=== PATIENT | male | born 1955 | race Caucasian/White ===

== ENCOUNTER → 2017-01-18 | Outpatient (CLI) | payer OTHER ==
[~2017-01-18] MED LIST: ACET-1256 PO; ALPR-411 PO; ASPEC81 PO; BUSP15TA70 PO; CLB200 PO; CLON0.5T3 PO; FLM4 PO; LISI-461 PO; ONDA8TAB6 PO; ULT50X PO; ZNTT/150 PO
[2017-01-18 10:54] LABS: BASO % 0.7 %; BASO ABS # 0.05 K/uL (0-0.2); COMPLETE YES; EOS % 5.4 %; HEMATOCRIT 44.7 % (42-52); IG% 0.8 %; LYMPH % 20.6 %; LYMPH ABS # 1.52 K/uL (1.2-3.4); MEAN CELL VOLUME 86.6 fL (80-100); MEAN CORPUSCULAR HEMOGLOBIN 28.3 pg (25-34); MEAN CORPUSCULAR HGB CONC 32.7 g/dl (32-36); MEAN PLATELET VOLUME 11.3 fL (7.4-10.4); MONO % 7.8 %; NEUT % 64.7 %; PLATELET COUNT 201 K/uL (130-400); RED BLOOD COUNT 5.16 M/uL (4.7-6.1); WHITE BLOOD COUNT 7.39 K/uL (4.8-10.8)
[2017-01-18 11:12] LABS: ALT/SGPT 27 U/L (12-78); AST/SGOT 12 U/L (15-37); BLOOD UREA NITROGEN 24 mg/dl (7-18); BUN/CREATININE RATIO 22.1 (10-20); CALCIUM 8.6 mg/dl (8.5-10.1); CARBON DIOXIDE 27 mmol/L (21-32); CHLORIDE 109 mmol/L (98-107); GLUCOSE 99 mg/dl (70-99); POTASSIUM 4.7 mmol/L (3.5-5.1); SODIUM 142 mmol/L (136-145)
[2017-01-18 11:18] LABS: ALB/GLOB RATIO 1.3 (0.9-2); ALKALINE PHOSPHATASE 73 U/L (45-117); CHOLESTEROL 160 mg/dl (0-200); CHOLESTEROL/HDL RATIO 3.5; HDL CHOLESTEROL 46 mg/dl; LDL CHOLESTEROL CALCULATED 102 mg/dl; TRIGLYCERIDES 61 mg/dl (0-150); VERY LOW DENSITY LIPOPROT CALC 12 mg/dl
== END | disposition home or self-care (01) ==
LOC: C.LABBC 07:48
PROVIDERS: ATTEND Nurse Practitioner Family
DX: Z13.220 Encounter for screening for lipoid disorders (principal); Z12.5 Encounter for screening for malignant neoplasm of prostate

== ENCOUNTER → 2017-05-03 | Outpatient (CLI) | payer OTHER ==
[~2017-05-03] MED LIST changes: -ONDA8TAB6 PO
--- NOTE | 2017-05-03 13:25 | DIAGNOSTIC IMAGING REPORT ---
KUB CLINICAL HISTORY: Nephrolithiasis. FINDINGS: 2 AP supine abdominal radiographs are obtained. Correlation is made with pelvic radiograph dated 10/14/2016. There is a nonobstructed abdominal bowel gas pattern. There is no radiographic evidence of nephrolithiasis. Phleboliths are again seen in the pelvis and unchanged from previous. The bony structures appear intact. Fusion hardware is seen at L4-L5 and a right hip arthroplasty is in place. IMPRESSION: There is no radiographic evidence of nephrolithiasis. Electronically signed by: Cecilio Franklin M.D. 05/03/2017 1:23 PM Dictated Date/Time: 05/03/2017 1:22 PM
--- NOTE | 2017-05-03 14:51 | DIAGNOSTIC IMAGING REPORT ---
RENAL ULTRASOUND HISTORY: Nephrocalcinosis N20.0 [id number] COMPARISON: None. FINDINGS: Right kidney: Maximum dimension 11.6 cm. No evidence for hydronephrosis. Normal corticomedullary differentiation and cortical thickness. Left kidney: Maximum dimension 10.5 cm. No evidence for hydronephrosis. 1 cm nonobstructing left renal cortical calcification. Normal corticomedullary differentiation and cortical thickness. Bladder: No bladder wall thickening. The bilateral ureteral jets were identified. IMPRESSION: Nonobstructing left renal cortical calcification. Otherwise negative study Electronically signed by: Td Andersen M.D. 05/03/2017 2:50 PM Dictated Date/Time: 05/03/2017 2:49 PM
== END | disposition home or self-care (01) ==
LOC: C.ULTRBC 12:52
PROVIDERS: ATTEND Urology
DX: N20.0 Calculus of kidney (principal)

== ENCOUNTER → 2017-07-13 | Outpatient (CLI) | payer OTHER ==
[2017-07-13 13:52] LABS: BASO % 0.3 %; BASO ABS # 0.02 K/uL (0-0.2); COMPLETE YES; EOS % 6.3 %; HEMATOCRIT 41.4 % (42-52); IG% 0.3 %; LYMPH % 18.4 %; LYMPH ABS # 1.14 K/uL (1.2-3.4); MEAN CELL VOLUME 88.1 fL (80-100); MEAN CORPUSCULAR HEMOGLOBIN 29.8 pg (25-34); MEAN CORPUSCULAR HGB CONC 33.8 g/dl (32-36); MEAN PLATELET VOLUME 11.9 fL (7.4-10.4); MONO % 9.8 %; NEUT % 64.9 %; PLATELET COUNT 195 K/uL (130-400)
[2017-07-13 14:26] LABS: ALT/SGPT 24 U/L (12-78); BLOOD UREA NITROGEN 22 mg/dl (7-18); CALCIUM 9.8 mg/dl (8.5-10.1); CARBON DIOXIDE 26 mmol/L (21-32); CHLORIDE 105 mmol/L (98-107); GLUCOSE 87 mg/dl (70-99); MAGNESIUM 2.2 mg/dl (1.8-2.4); POTASSIUM 4.6 mmol/L (3.5-5.1); SODIUM 138 mmol/L (136-145)
[2017-07-13 14:44] LABS: ALB/GLOB RATIO 1.2 (0.9-2); ALKALINE PHOSPHATASE 62 U/L (45-117); AST/SGOT 19 U/L (15-37); FERRITIN 80.2 ng/ml (8.0-388.0); TRIGLYCERIDES 64 mg/dl (0-150)
== END | disposition home or self-care (01) ==
LOC: C.LABBC 10:32
PROVIDERS: ATTEND Nurse Practitioner Family
DX: E66.01 Morbid (severe) obesity due to excess calories (principal); R53.83 Other fatigue; M19.90 Unspecified osteoarthritis, unspecified site; M16.9 Osteoarthritis of hip, unspecified

== ENCOUNTER → 2017-10-14 | Outpatient (CLI) | payer OTHER ==
[2017-10-14 11:26] LABS: LYME DISEASE AB IGG NEG (NEG); LYME DISEASE AB IGM NEG (NEG)
== END | disposition home or self-care (01) ==
LOC: C.LABBC 07:31
PROVIDERS: ATTEND Nurse Practitioner Family
DX: R53.83 Other fatigue (principal); M25.50 Pain in unspecified joint

== ENCOUNTER → 2018-01-20 | Outpatient (CLI) | payer OTHER ==
[~2018-01-20] MED LIST changes: +RANI150T85 PO; -ZNTT/150 PO
--- NOTE | 2018-01-20 12:49 | DIAGNOSTIC IMAGING REPORT ---
KUB CLINICAL HISTORY: Nephrolithiasis. COMPARISON STUDY: KUB and renal ultrasound May 03, 2017. FINDINGS: L4-L5 discectomy and fusion is noted as well as a right hip arthroplasty. Pelvic calcifications are unchanged from prior KUB and likely reflect phleboliths. There is a probable 3 mm calculus within lower pole of the right kidney. No ureteral calculi are identified. IMPRESSION: 1. Probable 3 mm right renal calculus. 2. No ureteral calculi identified. Electronically signed by: Dean Olvera M.D. 01/20/2018 12:48 PM Dictated Date/Time: 01/20/2018 12:46 PM
[2018-01-20 14:22] LABS: BLOOD UREA NITROGEN 22 mg/dl (7-18); CREATININE 1.21 mg/dl (0.60-1.40)
== END | disposition home or self-care (01) ==
LOC: C.LABBC 11:55
PROVIDERS: ATTEND Urology
DX: N20.0 Calculus of kidney (principal)

== ENCOUNTER → 2018-02-11 | Outpatient (CLI) | payer OTHER ==
[~2018-02-11] MED LIST changes: -ASPEC81 PO; +ASPI-320 PO; +OPTIRAY 320 IV PRN
--- NOTE | 2018-02-11 13:47 | DIAGNOSTIC IMAGING REPORT ---
(CHEST FOR PE) ANGIO WITH CLINICAL HISTORY: 62 years-old Male presenting with ^ATYPICAL CHEST PAIN,EXERTIONAL DYSPNEA,SOB. TECHNIQUE: Multidetector CT angiography of the chest was performed after administration of intravenous contrast. 3-D volumetric and/or maximum intensity projection (MIP) images were subsequently reconstructed for review. IV contrast: 93 mL of Optiray 320. A dose lowering technique was used consistent with the principles of ALARA (as low as reasonably achievable). COMPARISON: None. CT DOSE (mGy.cm): The estimated cumulative dose is 554.20 mGycm. FINDINGS: Fisher Purse Seine topogram: Internal fixation hardware in the left humeral head and plate and screw fixation in the cervical spine. Pulmonary vasculature: The study is suboptimal for the assessment of the pulmonary vascular tree secondary to timing of the contrast bolus and respiratory motion artifact. Allowing for limited image quality, no central filling defect to suggest pulmonary embolus. Main pulmonary artery is not enlarged. No flattening of the interventricular septum. No intracardiac filling defect. No reflux of contrast into the hepatic veins. Remaining chest: On soft tissue windows, normal thyroid and thoracic inlet. Few subcentimeter mediastinal and hilar lymph nodes noted, likely reactive. Atherosclerosis of the aorta. Mild multichamber enlargement of the heart. No pericardial or pleural effusion. Upper abdomen normal. On lung windows, respiratory artifact somewhat limits evaluation of lung parenchyma. Minimal dependent groundglass opacities as well as bandlike opacities at the lung bases likely atelectasis. No significant interlobular septal thickening. Pulmonary arteries are comparable in size to adjacent bronchi suggesting no volume overload. Central airways patent. On bone windows, degenerative changes of the spine. Partially visualized anterior cervical discectomy and fusion changes. Partially visualized left humeral head hardware. IMPRESSION: 1. Allowing for suboptimal image quality, no evidence of pulmonary embolus. No acute intrathoracic pathology. 2. Mild cardiomegaly. No ghazal pulmonary edema or volume overload. 3. Bibasilar atelectasis. Electronically signed by: Justice Sierra M.D. 02/11/2018 1:46 PM Dictated Date/Time: 02/11/2018 1:40 PM
== END | disposition home or self-care (01) ==
LOC: C.CTS 12:37
PROVIDERS: ATTEND Internal Medicine Pulmonary Disease
DX: R06.09 Other forms of dyspnea (principal); R07.89 Other chest pain; R06.02 Shortness of breath; J98.11 Atelectasis

== ENCOUNTER → 2018-06-20 | Outpatient (CLI) | payer OTHER ==
[~2018-06-20] MED LIST changes: -CLON0.5T3 PO; +KLN/5 PO; -OPTIRAY 320 IV PRN
[2018-06-20 13:14] LABS: BASO % 0.5 %; BASO ABS # 0.04 K/uL (0-0.2); EOS % 4.7 %; EOS ABS # 0.35 K/uL (0-0.5); HEMATOCRIT 41.6 % (42-52); HEMOGLOBIN 14.1 g/dL (14.0-18.0); IG# 0.05 K/uL (0.00-0.02); MEAN CELL VOLUME 89.1 fL (80-100); MEAN CORPUSCULAR HEMOGLOBIN 30.2 pg (25-34); MEAN CORPUSCULAR HGB CONC 33.9 g/dl (32-36); MEAN PLATELET VOLUME 11.4 fL (7.4-10.4); MONO % 7.5 %; MONO ABS # 0.55 K/uL (0.11-0.59); NEUT % 67.6 %; NEUT ABS # 4.98 K/uL (1.4-6.5); PLATELET COUNT 206 K/uL (130-400); RED CELL DISTRIBUTION WIDTH CV 13.5 % (11.5-14.5); RED CELL DISTRIBUTION WIDTH SD 44.1 fL (36.4-46.3); WHITE BLOOD COUNT 7.37 K/uL (4.8-10.8)
[2018-06-20 13:22] LABS: PTT PATIENT 26.4 SECONDS (21.0-31.0)
[2018-06-20 13:53] LABS: ALKALINE PHOSPHATASE 57 U/L (45-117); ALT/SGPT 32 U/L (12-78); AST/SGOT 19 U/L (15-37); BLOOD UREA NITROGEN 25 mg/dl (7-18); CALCIUM 9.2 mg/dl (8.5-10.1); CARBON DIOXIDE 23 mmol/L (21-32); CREATININE 1.25 mg/dl (0.60-1.40); GLUCOSE 110 mg/dl (70-99); POTASSIUM 4.1 mmol/L (3.5-5.1); SODIUM 136 mmol/L (136-145); TOTAL PROTEIN 7.3 gm/dl (6.4-8.2)
== END | disposition home or self-care (01) ==
LOC: C.LABBC 11:04
PROVIDERS: ATTEND Internal Medicine Pulmonary Disease
DX: R06.02 Shortness of breath (principal); J44.9 Chronic obstructive pulmonary disease, unspecified; J45.909 Unspecified asthma, uncomplicated

== ENCOUNTER 2018-07-01 07:26 | Day surgery (SDC) | payer OTHER ==
[2018-07-01] VITALS (8 sets, daily range): BP systolic 114–145; BP diastolic 71–95; PULSE 58–68; TEMP 36.6–37.1; O2SAT 92–96; Ht 179.1 cm; Wt 130.5 kg
[~2018-07-01] VITALS: Ht 179.1 cm; Wt 130.5 kg
--- NOTE | 2018-07-01 07:52 | History & Physical Bridge Note ---
H&P Re-Evaluation Bridge Note: I have examined the patient, reviewed the History & Physical and in the interval since the performance of the History & Physical I have noted the following changes of clinical significance: No changes noted
--- NOTE | 2018-07-01 07:53 | Pre Sedation Assessment ---
Pre Sedation Assessment General Date of Sedation: Jul 01, 2018. Pre-Sedation Airway Assessment Smoking Status: Never Smoker Mallampati Classification: Class II ASA Classification: Class II Procedure Planning Contraindications for Sedation: None Current Medications Reviewed: Yes Notes The planned sedation has been discussed with the patient. Informed Consent was obtained. I have identified the patient, determined the appropriateness of sedation and have assessed the patient immediately prior to the procedure. All medicine(s) and interventions are by my order.
[2018-07-01] MEDS ORDERED: METO-217 PO (08:08)
[2018-07-01] MEDS ORDERED: FLUT1INH7 INH (08:08)
[2018-07-01] MEDS ORDERED: NAPR-22 PO (08:08)
[2018-07-01] MEDS ORDERED: MONT1TAB5 PO (08:08)
[2018-07-01] MEDS ORDERED: FENTANYL CITRATE INJ 50 MCG/1 ML 2 ML VIAL IV ONE (09:17)
[2018-07-01] MEDS ORDERED: LIDOCAINE VISCOUS 2% 100ML TOP ONE (09:35)
[2018-07-01] MEDS ORDERED: LIDOCAINE HCL 2% LOCAL 50ML VIAL INSTIL ONE (09:35)
[2018-07-01] MEDS ORDERED: OXYMETAZOLINE HCL 0.05% NA SPR 15 ML BTL ONE (09:35)
[2018-07-01] MEDS ORDERED: MIDAZOLAM HCL 5 MG/ML 1 ML VIAL IV ONE (09:35)
[2018-07-01] MEDS ORDERED: LIDOCAINE 4% INH SOLN 4 ML BTL TOP ONE (09:35)
--- NOTE | 2018-07-01 09:40 | [facility] Operative Report ---
Operative Report Operative Date Jul 01, 2018. Pre-Operative Diagnosis Chronic Asthmatic Bronchiectasis Post-Operative Diagnosis Chronic Asthmatic Bronchiectasis Procedure(s) Performed Bronchoscopy Surgeon Damian Furniture Arranger Surgeon(s) None Estimated Blood Loss 0 Findings Chronic Asthmatic Bronchitis Specimens Right and Left Lung Wash Complication(s) None Disposition I attest to the content of the Intraoperative Record and any orders documented therein. Any exceptions are noted below.
--- NOTE | 2018-07-01 09:40 | Post Sedation Assessment ---
Post Sedation Assessment General Date of Sedation Jul 01, 2018. Vital Signs: Vital Signs Past 12 Hours Date Time Temp Pulse Resp B/P (MAP) Pulse Ox O2 Delivery O2 Flow Rate FiO2 07/01/18 09:25 68 14 121/78 92 Mask 6 07/01/18 09:20 69 20 122/72 92 Mask 4 07/01/18 09:15 66 20 128/70 95 Mask 4 07/01/18 09:10 64 18 134/75 98 Mask 4 07/01/18 08:14 37.1 67 20 140/80 (100) 96 Room Air Post Procedure Recovery Score Activity: (2) Moves 4 extremities * Respiration: (2) Deep breath/cough Circulation: (2) +/-20% PreAnes Value Consciousness: (2) Fully Awake Oxygen Saturation: (1) O2 needed for >90% Post Anesthesia Score: 9 Discharge Sedation Level of Care: Fast Track Phase II Post Sedation Plan On clinical assessment, the patient appears to have tolerated the sedation without complications. Patient is recovering as anticipated. Patient will continue to be monitored by nursing and may be discharged when sedation discharge criteria are met per below protocol. Upon Completions of procedure and additional 15 minutes continue every 5 minute vital signs and the P.A.R. score; then discharge to a Phase I or Fast Track to Phase II per the following guidelines: * Discharge Patient to appropriate Phase II area if PAR is 8 or greater or return to pre- procedure baseline. The post - procedure orders will be as directed. * If PAR score is less than 8 or not return to pre-procedure baseline then patient will follow Phase I monitoring till PAR is reached for Phase II. The Phase I may be done in procedure room or may call to secure a Phase I area. * If naloxone or flumazenil are used for reversal, hold in Phase I for an additional 60 -120 minutes before discharge to Phase II. Please call the Sedation Physician to re-evaluate and complete post-note for discharge to Phase II area. Do NOT discharge from procedure sedation or Phase 1 until post- sedation evaluation note is complete by procedure /sedation MD Sedation Discharge Instructions to be given to the patient at discharge to home.
--- NOTE | 2018-07-01 09:43 | Discharge Instructions ---
Discharge Instructions Date of Service Jul 01, 2018. Admission Reason for Admission: Chronic Asthmatic Bronchitis, Sob Discharge Discharge Diagnosis / Problem: Chronic Astmatic Bronchitis Discharge Goals Goal(s): Diagnostic testing Activity Recommendations Activity Limitations: resume your previous activity Lifting Limitations: none Exercise/Sports Limitations: none May Resume Sexual Activity: when tolerated Shower/Bathe: no limitations Driving or Machine Use: resume 1 day after discharge none . Instructions / Follow-Up Instructions / Follow-Up ACTIVITY RECOMMENDATIONS: * Rest today, resume normal activity tomorrow. * Do not drive today. SPECIAL CARE INSTRUCTIONS: * Call your physician if you experience any chest or shoulder pain, fever, coughing, spitting up blood (more than 2 teaspoons) or excessive shortness of breath. * Remove dressing from IV site (where needle was placed into the vein) after 2 hours. Apply a warm, moist compress to site if irritation occurs. Call physician if site becomes red or painful to touch. FOLLOW UP VISIT: * Keep any scheduled doctor appointments. Current Hospital Diet Patient's current hospital diet: regular Discharge Diet Recommended Diet: Regular Diet Fluid Restriction: None Procedures Procedures Performed: Bronchoscopy Pending Studies Studies pending at discharge: no Medical Emergencies . Who to Call and When: Medical Emergencies: If at any time you feel your situation is an emergency, please call 911 immediately. . Non-Emergent Contact Non-Emergency issues call your: Rfid Analyst Call Non-Emergent contact if: temperature is above 101 . . "Provider Documentation" section prepared by Joseph Salgado. .
--- NOTE | 2018-07-01 19:56 | OPERATIVE REPORT ---
DATE OF OPERATION: 07/01/2018 TIME OF PROCEDURE: 09. PROCEDURE: Fiberoptic bronchoscope. INDICATIONS: Chronic congestion and cough refractory to outpatient therapy. ANESTHESIA PREOPERATIVELY: None. ANESTHESIA DURING PROCEDURE: IV Versed 6 mg IV, IV fentanyl 50 mcg. PROCEDURE IN DETAIL: The procedure was begun on 916 and completed on 927. Fiberoptic bronchoscope was inserted into the left naris without any difficulty and no active bleeding and the presence of significant disease was noted. The scope was passed to the level of the true vocal cords, which appeared to approximate normally with phonation without evidence of lesions or paralysis. The area was anesthetized with 2% Xylocaine spray and the scope was then introduced through the cords into the subglottic region and trachea and passed to the level of the federico, which was sharp and then the right mainstem bronchus was entered. No endobronchial lesion was seen. The right upper lobe, the apical posterior, anterior segments, bronchus intermedius, right middle lobe, medial lateral segments and all basilar segments right lower lobe were found to be free of endobronchial lesions. A small amount of mucoviscous secretion was lavaged from the right middle lobe and right lower lobe until clear. Mild global inflammatory mucosal change was seen throughout the right tracheobronchial tree. Left tracheobronchial tree showed no endobronchial lesions. Left upper lobe, the apical-posterior and anterior segments, lingular subdivision with the superior and inferior segments and all basilar segments of left lower lobe were found to be free of endobronchial lesions. Small amount of mucopurulent secretion was lavaged from left lower lobe until clear. The scope was then removed. No brushings or biopsies were deemed necessary. Fluoroscopy was not utilized. The patient was administered a nebulizer treatment with Xopenex 1.25 mg then transferred to same day surgery, hemodynamically stable, no signs of respiratory compromise and no evidence for epistaxis. We will await microbiological and cytologic examination of the bronchial washings. I attest to the content of the Intraoperative Record and any orders documented therein. Any exception s are noted below.
[2018-07-05 11:52] LABS: HERPES SIMPLEX VIRUS CULT NOT ISOLATED (NOT ISOLATED)
== END 2018-07-01 12:08 | disposition home or self-care (01) ==
LOC: C.ACU 07:26
PROVIDERS: ATTEND Internal Medicine Pulmonary Disease
DX: R05 Cough (principal); R09.89 Other specified symptoms and signs involving the circulatory and respiratory systems; J45.909 Unspecified asthma, uncomplicated; N40.0 Benign prostatic hyperplasia without lower urinary tract symptoms; E66.01 Morbid (severe) obesity due to excess calories; Z68.41 Body mass index [BMI] 40.0-44.9, adult; Z96.659 Presence of unspecified artificial knee joint; Z79.82 Long term (current) use of aspirin

== ENCOUNTER 2019-08-14 08:39 | Inpatient (IN) ==
--- NOTE | 2019-07-25 15:19 | PAT Medication Instructions ---
Medication Instructions Date of Service July 25, 2019 Home Medications Medication Instructions Recorded tramadol 50 mg tablet 50 mg PO BID PRN #80 tab 06/05/19 alprazolam 0.5 mg tablet 0.5 mg PO DAILY PRN #30 tab 06/28/19 fluticasone furoate 200 1 inh INHALATION QAM #60 ea 07/21/19 mcg-vilanterol 25 mcg/dose inhalation powder naproxen 500 mg tablet 500 mg PO DAILY #30 tab 07/24/19 aspirin [Aspir-81] 81 mg PO BID buspirone 15 mg PO BID lisinopril-hydrochlorothiazide 0.5 tab PO BID metoprolol succinate 50 mg PO BID tamsulosin 0.4 mg PO HS tiotropium bromide [Spiriva Respimat] 2 puff INHALATION QAM tramadol 50 mg tablet 50 mg PO BID PRN albuterol sulfate HFA 90 mcg/actuation aerosol inhaler 1 - 2 puffs INHALATION Q4H PRN apixaban 5 mg tablet 5 mg PO BID alprazolam 0.5 mg tablet 0.5 mg PO DAILY PRN fluticasone furoate 200 mcg-vilanterol 25 mcg/dose inhalation powder 1 inh INHALATION QAM naproxen 500 mg tablet 500 mg PO DAILY ASK your surgeon for instructions naproxen 500 mg tablet 500 mg PO DAILY ASK your prescriber and surgeon aspirin [Aspir-81] 81 mg PO BID apixaban 5 mg tablet 5 mg PO BID DO NOT take the morning of surgery lisinopril-hydrochlorothiazide 0.5 tab PO BID Take morning of surgery With a small sip of water, OTHERWISE NOTHING TO EAT OR DRINK AFTER MIDNIGHT: buspirone 15 mg PO BID metoprolol succinate 50 mg PO BID tiotropium bromide [Spiriva Respimat] 2 puff INHALATION QAM tramadol 50 mg tablet 50 mg PO BID PRN (okay to take up to 4 hours prior to surgery if needed) albuterol sulfate HFA 90 mcg/actuation aerosol inhaler 1 - 2 puffs INHALATION Q4H PRN (use if needed; please bring with you to hospital day of surgery if possible) alprazolam 0.5 mg tablet 0.5 mg PO DAILY PRN (if needed) fluticasone furoate 200 mcg-vilanterol 25 mcg/dose inhalation powder 1 inh INHALATION QAM Take evening before surgery buspirone 15 mg PO BID lisinopril-hydrochlorothiazide 0.5 tab PO BID metoprolol succinate 50 mg PO BID tamsulosin 0.4 mg PO HS tramadol 50 mg tablet 50 mg PO BID PRN (if needed) albuterol sulfate HFA 90 mcg/actuation aerosol inhaler 1 - 2 puffs INHALATION Q4H PRN (if needed) alprazolam 0.5 mg tablet 0.5 mg PO DAILY PRN (if needed) Other Notes If you have any questions please call us at [phone] or [phone] or [phone] or [phone]
--- NOTE | 2019-07-26 11:16 | Anesthesiology Consultation ---
Date of Service July 26, 2019 Assessment & Plan (1) Encounter for pre-operative examination: - Cardiology: 07/21/19: "Based on his previous functional status without limiting cardiopulmonary symptoms, negative stress echocardiogram approximately 1 year ago, and his normal LV systolic function -- Patient is a low to intermediate, but an acceptable cardiac surgical risk for his upcoming spine surgery..There is no need for further cardiac workup at this time." - Eliquis instructions: Okay to hold Eliquis x 3 days prior to surgery per cardiology. Chart Review Chart Review: Pending: Refer to Additional Notes / Consult section (pending preop testing (labs, EKG, CXR)) and Patient seen in Pre Admission Testing Teaching & Discussion Pre-Anesthesia Teaching/Discussion Notes: Instructed NPO after midnight before surgery,except medications with 15 cc of water. Medication instructions provided according to the PAT guidelines. History Surgery Operation Date: 08/14/19 07:45 Proposed Procedures p L2-S1 Decompression and Fusion, - Renan Grullon DO s L4-L5 Hardware Removal, Possible Coflex with Spinal Cord Monitoring - Renan Grullon DO Height/Weight Height: 5 ft 10.5 in Weight: 130.9 kg Allergies Allergy/AdvReac Type Severity Reaction Status Date / Time No Known Allergies Allergy Verified 07/21/19 10:41 Medications Home Medications Medication Instructions Recorded Confirmed Last Taken aspirin [Aspir-81] 81 mg PO BID 11/23/18 07/21/19 11/23/18 buspirone 15 mg PO BID 11/23/18 07/21/19 11/23/18 lisinopril-hydrochlorothiazide 0.5 tab PO BID 11/23/18 07/21/19 11/23/18 metoprolol succinate 50 mg PO BID 11/23/18 07/21/19 11/23/18 tamsulosin 0.4 mg PO HS 11/23/18 07/21/19 11/22/18 tiotropium bromide [Spiriva 2 puff INHALATION QAM 11/23/18 07/21/19 Unknown Respimat] tramadol 50 mg tablet 50 mg PO BID PRN #80 tab 06/05/19 07/21/19 Unknown albuterol sulfate HFA 90 1 - 2 puffs INHALATION Q4H PRN #1 06/14/19 07/21/19 Unknown mcg/actuation aerosol inhaler gm apixaban 5 mg tablet 5 mg PO BID #60 tab 06/14/19 07/21/19 Unknown alprazolam 0.5 mg tablet 0.5 mg PO DAILY PRN #30 tab 06/28/19 07/21/19 Unknown fluticasone furoate 200 1 inh INHALATION QAM #60 ea 07/21/19 Unknown mcg-vilanterol 25 mcg/dose inhalation powder naproxen 500 mg tablet 500 mg PO DAILY #30 tab 07/24/19 Unknown Past Medical History Medical History Morbid obesity Anxiety and depression Asthma stable (improved since initiating inhalers) Atrial fibrillation paroxysmal Degenerative disc disease Hypertension Kidney stones Osteoarthritis Spinal stenosis Exercise / Class Metabolic Activity III < 4 Walking/Shop/Light housework (long distance walking) Past Family History Family History Father Family history of melanoma Osteoarthritis Myocardial infarction Hypertension Kidney malignant neoplasm Melanoma Mother Family history of colon cancer Past Surgical History Surgical History History of cardiac catheterization 20 YRS AGO= NO STENTS History of colonoscopy History of colonoscopy with polypectomy History of fusion of cervical spine ACDF History of lumbar fusion History of shoulder surgery RX2 , LX1 History of total left knee replacement History of total right hip arthroplasty History of urologic surgery KIDNEY STONE REMOVAL Past Anesthesia History No Hx of Anesthesia Complications (except remote hx of PONV (no recent issues)) and No Family Hx of Anesthesia Complications History of PONV History of PONV (remote hx, no recent issues) and Hx of Motion Sickness Social History Smoking Status: Never smoker Do You Dip or Chew Tobacco: No Hx Alcohol Use: Yes Alcohol type: beer and hard liquor alcohol intake frequency: a few times a month Hx Substance Use: No substance use type: does not use Review of Systems Patient denies chest pain, shortness of breath, reflux, cough, wheezing, palpitations. Physical Exam Vital Signs VITALS BP 116/72 P 57 TEMP 98.0 SP02 93%RA RESP 18 PHYSICAL Mildly decreased cervical extension s/p ACDF Full TMJ range of motion. TMD 3 finger breaths Mallampati Score 2 Dentition: missing sides/molars Lungs: clear throughout to auscultation Cardiac: regular rate and rhythm, no murmurs noted Spine: normal Carotid arteries: negative bruit Extremities: no edema Testing Laboratory Results 06/21/19 WBC 6.14 H/H 14.1/42.7 PLATELETS 179 SODIUM 139 POTASSIUM 4.3 CHLORIDE 107 CO2 30 BUN 22 CREATININE 1.33 GLUCOSE 91 Stress Test Date: 07/08/18 Type: exercise Negative exercise stress ECHO/EKG for ischemia at 87% MPHR. No arrhythmia. No chest pain. Study terminated due to SOB. EF 60-65%. No RWMA. No significant valvular disease. Technically difficult study. 7 METS.
--- NOTE | 2019-07-26 12:21 | XRay Report ---
XR chest Pre-admission PA/Lat CLINICAL HISTORY: Preoperative chest COMPARISON STUDY: 10/07/2016 FINDINGS: There are low lung volumes with hypoventilatory changes at the lung bases. There is no loba r consolidation. There is no overt failure. There are no pleural effusions. The heart is normal in si ze. Postsurgical changes are present within the cervical spine[ IMPRESSION: Low lung volumes with hypoventilatory changes at the lung bases Electronically signed by: Joseluis Johnston M.D. 07/26/2019 12:20 PM
[2019-07-26 13:29] LABS: Appearance Urine Clear (Clear); Bilirubin Urine Negative (Negative); Blood Urine Negative (Negative); Color Urine Dark Yellow; Glucose Urine UA Negative (Negative); Ketones Urine Trace (Negative); Leukocyte Esterase Urine Negative (Negative); Nitrite Urine Negative (Negative); Protein Urine Negative (Negative); Specific Gravity Urine 1.025 (1.000-1.030); Urobilinogen Urine Negative (Negative)
[2019-07-26 13:31] LABS: INR 1.1 (0.9-1.1); Partial Thromboplastin Ratio 1.1; Partial Thromboplastin Time 29.4 Seconds (21.0-31.0)
[~2019-08-14 08:39] MED LIST changes: -ACET-1256 PO; +ACETAMINOPHEN 500 MG TAB PO SCH; -ALPR-411 PO; -ASPI-320 PO; -BUSP15TA70 PO; +CEFAZOLIN 3000MG 72.5 ML IV SCH; -CLB200 PO; +CeleBREX 200 MG CAP PO SCH; -FLM4 PO; +GABAPENTIN 300 MG CAP PO SCH; -KLN/5 PO; -LISI-461 PO; +LR 15ML/HR IV SCH; -RANI150T85 PO; -ULT50X PO
[2019-08-14] MEDS ORDERED: LIDOCAINE HCL 2% 2 ML VIAL/AMP(20MG/ML) INFIL ONE (09:21)
[2019-08-14] MEDS ORDERED: ePHEDrine sulfate 50 MG/ML AMP ONE (09:21)
[2019-08-14] MEDS ORDERED: PHENYLEPHRINE HCL 10 MG/ML VIAL ONE (09:21)
[2019-08-14] MEDS ORDERED: GLYCOPYRROLATE 0.2 MG/ML VIAL ONE (09:21)
[2019-08-14] MEDS ORDERED: fentaNYL citrate 100 MCG/2 ML VIAL ONE ×2 (09:21)
[2019-08-14] MEDS ORDERED: SUCCINYLCHOLINE CHLORIDE 20 MG/ML 10 ML VIAL ONE (09:21)
[2019-08-14] MEDS ORDERED: ONDANSETRON INJ 2 MG/ML 2 ML VIAL ONE (09:21)
[2019-08-14] MEDS ORDERED: DEXAMETHASONE SOD INJ 4 MG/ML VIAL ONE (09:21)
[2019-08-14] MEDS ORDERED: PROPOFOL IV EMULSION 10 MG/ML 20 ML VIAL IV ONE (09:21)
[2019-08-14] MEDS ORDERED: NEOSTIGMINE METHYLSULFATE 1 MG/ML 10ML VIAL ONE (09:21)
[2019-08-14] MEDS ORDERED: MIDAZOLAM HCL 1 MG/ML 2ML VIAL ONE (09:22)
[2019-08-14] MEDS ORDERED: ePHEDrine sulfate 50 MG/ML AMP IV PRN (09:50)
[2019-08-14] MEDS ORDERED: ONDANSETRON INJ 2 MG/ML 2 ML VIAL IV PRN ×2 (09:50→15:43)
[2019-08-14] MEDS ORDERED: LABETALOL HCL IV 5 MG/ML 20ML IV PRN (09:50)
[2019-08-14] MEDS ORDERED: HYDROmorphone INJ 1 MG/ML SYRINGE IV PRN (09:50)
[2019-08-14] MEDS ORDERED: ATROPINE SULFATE 0.1 MG/ML 10ML SYR IV PRN (09:50)
[2019-08-14] MEDS ORDERED: BACITRACIN INJ 50,000 UNIT VIAL ONE (10:14)
[2019-08-14] MEDS ORDERED: BUPIVACAINE/EPINEPHRINE 0.5% MPF 1:200,000 30 ML VIAL ONE (10:14)
--- NOTE | 2019-08-14 10:14 | History & Physical Bridge Note ---
Date of Service August 14, 2019 History & Physical Bridge Note I have examined the patient, reviewed the History & Physical and in the interval since the performance of the History & Physical I have noted the following changes of clinical significance: no changes noted
--- NOTE | 2019-08-14 10:16 | History & Physical Report ---
Date of Service August 14, 2019 Assessment & Plan (1) Spinal stenosis, lumbar region with neurogenic claudication: Lumbar decompression and fusion L2-S1 with hardware removal L4-L5 Present on Admission?: Yes History of Present Illness Chief Complaint: Back and bilateral leg pain Primary Care Provider: Ronak Marie, III, INVENTORY CONTROL SPECIALIST This is a 64-year-old male well-known to me that presents with chronic persistent back and bilateral leg pain after failing extensive course of nonoperative care is here for surgical intervention. Allergies Allergy/AdvReac Type Severity Reaction Status Date / Time No Known Allergies Allergy Verified 08/14/19 09:11 Home Medications Home Medications Medication Instructions Recorded Confirmed Type aspirin [Aspir-81] 81 mg PO BID 11/23/18 08/14/19 History buspirone 15 mg PO BID 11/23/18 08/14/19 History lisinopril-hydrochlorothiazide 0.5 tab PO BID 11/23/18 08/14/19 History tiotropium bromide [Spiriva 2 puff INHALATION QAM 11/23/18 08/14/19 History Respimat] tramadol 50 mg tablet 50 mg PO BID PRN #80 tab 06/05/19 08/14/19 Rx albuterol sulfate HFA 90 1 - 2 puffs INHALATION Q4H PRN #1 06/14/19 08/14/19 History mcg/actuation aerosol inhaler gm apixaban 5 mg tablet 5 mg PO BID #60 tab 06/14/19 08/14/19 History alprazolam 0.5 mg tablet 0.5 mg PO DAILY PRN #30 tab 06/28/19 08/14/19 Rx fluticasone furoate 200 1 inh INHALATION QAM #60 ea 07/21/19 08/14/19 Rx mcg-vilanterol 25 mcg/dose inhalation powder naproxen 500 mg tablet 500 mg PO DAILY #30 tab 07/24/19 08/14/19 Rx tamsulosin 0.4 mg capsule 0.4 mg PO HS #90 cap 08/08/19 08/14/19 Rx metoprolol succinate ER 50 mg 50 mg PO BID #60 tab 08/10/19 08/14/19 Rx tablet,extended release 24 hr colchicine 0.6 mg PO BID 08/14/19 08/14/19 History prednisone 10 mg PO DAILY 08/14/19 08/14/19 History Past Med/Surg History Family History Father Family history of melanoma Osteoarthritis Myocardial infarction Hypertension Kidney malignant neoplasm Melanoma Mother Family history of colon cancer Social History Preferred Language: Monegasque Communication Ability: Effective Visual Impairment: No Limitations Hearing Ability: Hard of Hearing Submarine Worker Required: No Beliefs That Will Affect Care: None marital status: Current Living Situation: Spouse and Other Current Living Situation Comment: [employer] SON (SPECIAL NEEDS) current occupational status: retired Other Information That Helps Us Care for You: No Feels Safe at Home: Yes Safety Concerns: Feels Safe At This Time Smoking Status: Never smoker Do You Dip or Chew Tobacco: No ; Second Hand Exposure: No ; Hx Alcohol Use: Yes Alcohol type: beer and hard liquor Hx Substance Use: No Dental Care, Regularly: No Physical Activity Frequency: Does not Exercise Physical Exam Physical Exam: Patient is alert and oriented neurologically intact. Results & Data Vital Signs (Past 12 Hours) Vital Signs Temp Pulse Resp BP Pulse Ox 08/14/19 09:13 36.6 C 66 18 137/78 94
[2019-08-14] MEDS ORDERED: ALBUMIN HUMAN 5% 12.5 GM/250 ML VIAL IV ONE (10:57)
[2019-08-14] MEDS ORDERED: FLOSEAL HEMOSTATIC MATRIX 10ML TOP ONE (11:46)
[2019-08-14] MEDS ORDERED: HYDROmorphone INJ 2 MG/ML SYR/VIAL ONE (12:42)
--- NOTE | 2019-08-14 13:54 | Operative Report ---
Post Operative Report Pre & Post Diagnosis Operation Date: 08/14/19 10:15 Pre-Op Diagnosis: Spinal stenosis, lumbar region, with neurogenic claudication Post-Op Diagnosis: Same Procedure Operation Date: 08/14/19 10:15 Actual Procedures #1 removal of posterior instrumentation L4-5. #2 exploration of fusion L4-5 per #3 lumbar decompression bilateral medial facetectomies and foraminotomies L2-3 L3-4 L5-S1. #4 posterior spinal fusion L2-3 L3-4 L4-5 L5-S1. #5 placement posterior segmental instrumentation from L2-S1. #6 interbody fusion L3-4 and L5-S1. #7 placement of titanium 11 x 26 mm cage at L3-4 and 12 x 26 mm cage at L5-S1. #8 placement of locally harvested morselized autograft in the posterior lateral gutters. #9 placement infuse collagen sponge, master graft in the posterior lateral gutters and ostial amp and interbody space. Surgeon Renan Grullon, DO Cloth Napping Supervisor Carmen Felix Estimated Blood Loss 500 Findings See Below The patient is 5 foot 10 inches tall weighing over 128 kg with a BMI in excess of 40. This combined with an EBL of over 500 cc created significant technical difficulty throughout the procedure adding at least 50% increase in operative time. Specimens None Indications Well-known to me that presents with steady decline in status. After failing extensive course of nonoperative care he like to undergo the above-mentioned procedure. Description of Procedure Patient was met with identified and informed consent obtained. Patient was then taken to the operative suite underwent intubation placed in a prone position the Edison table on top of the Ta frame. All bony prominences well-padded eyes inspected to ensure no external pressure placed upon the peer at this point the lumbar spine was prepped and draped in the normal sterile fashion. Sharp dissection with the assistance of Bovie cautery was performed down to and exposing the lamina and transverse processes of L2-L3 the instrumentation at L4- L5 and the sacral ala bilaterally. I then proceed remove the hardware at L4-5 bilaterally exploring the fusion mass noting it to be intact. I then performed a complete laminectomy of L5 L3 and L to from a caudal cephalad fashion completing bilateral medial facetectomies and foraminotomies to address severe spinal stenosis. Pedicle screws were then placed in L2 L3-L4-L5 and S1 levels bilaterally with assistance of fluoroscopy and the appropriately size timothy placed. By way of a transforaminal approach on the right complete discectomy of L5-S1 was performed endplates curetted to subcortical bleeding bone and a 12 x 26 mm titanium cage filled with osteo-amp bone graft tapped in position. Then proceeded to L3-[address] of a transforaminal approach on the right complete discectomy performed endplates curetted to subcortical bleeding bone and 11 x 26 mm titanium cage filled with osteo-amp bone graft tapped in po sition. The rods were then locked into final position bilaterally. The transverse processes of L2 L3-L4-L5 and sacral ala bur to subcortical bleeding bone. Infuse collagen sponge master graft and local autograft placed in the posterior lateral gutters. 15 round ARUN drain inserted. The incision was then closed with 1 Vicryl in the fascia 2-0 Vicryl subcutaneously and 4-0 Monocryl for final skin closure. Steri-Strip sterile dressings placed. Patient awakened taken to PACU stable disc. Please note Carmen Felix present throughout the entire procedure involved in patient positioning complex portions of the surgery and final skin closure. Lastly spinal cord monitoring was utilized throughout the procedure no changes noted. I attest to the content of the Intraoperative Record and any orders documented therein. Any exceptions are noted below.
--- NOTE | 2019-08-14 13:59 | Fluoroscopy Report ---
FL lumbar spine 2-3V CLINICAL HISTORY: L2-S1 DECOMPRESSION/FUSION, L4-L5 REMOVAL COMPARISON STUDY: Outside study dated 04/18/2018 FLUOROSCOPY TIME: 41 seconds. NUMBER OF FLUOROSCOPIC IMAGES: 3 FINDINGS: There are postsurgical changes of a prior L4-5 discectomy and interbody fusion. There is no w evidence for canal 3-4 and L5-S1 discectomy and interbody fusion. There is evidence for an L2-S1 sp inal fusion with posterior pedicle screw placement. IMPRESSION: L2-S1 spinal decompression and fusion. Electronically signed by: Joseluis Johnston M.D. 08/14/2019 1:58 PM
[2019-08-14] MEDS: fentaNYL citrate 100 MCG/2 ML VIAL IV PRN ×3 (14:32→14:50)
--- NOTE | 2019-08-14 15:18 | Anesthesiology Progress Note ---
Date of Service August 14, 2019 Anesthesia Post Procedure Vital Signs Vital Signs: Temp Pulse Pulse Resp BP Pulse Ox 08/14/19 15:10 67 17 128/67 93 08/14/19 15:00 67 15 112/64 96 08/14/19 14:50 62 13 116/65 91 08/14/19 14:40 71 21 120/65 98 08/14/19 14:30 69 18 118/70 97 08/14/19 14:20 73 16 134/65 99 08/14/19 14:10 36.7 C 75 15 132/60 99 08/14/19 09:13 36.6 C 66 18 137/78 94 Pain Intensity Lower Back: Pain Intensity: 5 Transfer of Care Handoff Completed per policy Notes Mental Status: alert / awake / arousable and participated in evaluation Patient Amnestic to Procedure: Yes Nausea / Vomiting: adequately controlled Pain: adequately controlled Airway Patency, RR, SpO2: stable & adequate BP & HR: stable & adequate Hydration State: stable & adequate Anesthetic Complications: no major complications apparent and Pt Satisfied with anesthetic care
[2019-08-14] MEDS ORDERED: TRAMADOL HCL 50 MG TABLET PO PRN (15:43)
[2019-08-14] MEDS ORDERED: PROMETHAZINE HCL 12.5 MG in SODIUM CHLORIDE 0.9% 50 ML IV PRN (15:43)
[2019-08-14] MEDS ORDERED: DO NOT ADMINISTER PNEUMOCOCCAL VACCINE PRN (15:43)
[2019-08-14] MEDS ORDERED: ONDANSETRON 4 MG TAB PO PRN (15:43)
[2019-08-14] MEDS ORDERED: ALPRAZolam 0.5 MG TABLET PO PRN (15:43)
[2019-08-14] MEDS ORDERED: SOD PHOSPHATE/SOD BIPHOSPHATE ENEMA 132 ML BTL PR PRN (15:43)
[2019-08-14] MEDS ORDERED: MAGNESIUM HYDROXIDE SUSP 30 ML UDC PO PRN (15:43)
[2019-08-14] MEDS ORDERED: FAMOTIDINE 20 MG TAB PO PRN (15:43)
[2019-08-14] MEDS ORDERED: HYDROmorphone INJ 0.5 MG/0.5 ML SYR IV PRN (15:43)
[2019-08-14] MEDS ORDERED: DO NOT ADMINISTER FLU VACCINE PRN (15:43)
[2019-08-14] MEDS ORDERED: bisacodyL 10 MG SUPP PR PRN (15:43)
[2019-08-14] MEDS ORDERED: LORazepam 0.5 MG TAB PO PRN (15:43)
[2019-08-14] MEDS ORDERED: NALOXONE HCL 0.4 MG/1 ML VIAL/CARP IV PRN (15:43)
[2019-08-14] MEDS ORDERED: ACETAMINOPHEN 1,000 MG/100 ML VIAL IV PRN (15:43)
[2019-08-14] MEDS ORDERED: LORazepam 0.5 MG/1 ML VIAL IV PRN (15:43)
[2019-08-14] MEDS ORDERED: ACETAMINOPHEN 500 MG TAB PO PRN (15:43)
[2019-08-14] MEDS ORDERED: METOCLOPRAMIDE HCL INJ 5 MG/ML 2 ML VIAL IV PRN (15:43)
[2019-08-14] MEDS ORDERED: ALUMINUM/MAGNESIUM SUSP 30 ML UDC PO PRN (15:43)
[2019-08-14] MEDS: LACTATED RINGER'S 1,000 ML IV SCH ×2 (17:09→23:12)
--- NOTE | 2019-08-14 17:22 | Hospitalist Consultation ---
Date of Consultation August 14, 2019 Assessment & Plan (1) Spinal stenosis, lumbar region with neurogenic claudication: - Post op day 0, Dr. Grullon - Pain management, bowel regimen, PT/OT per primary team - Resume eliquis for a fib once clear from a surgical standpoint - Follow am cbc for monitoring H&H - Hallucinations likely a result of anesthesia and pain management. At home the patient has been maintaining pain control on naproxen and tramadol. (2) Dry eyes: - Pt with c/o dry eyes, like sand in his eyes, during exam - Natural tears ordered prn (3) Hallucination: - likely drug induced - continue to monitor - encourage sound sleep if possible overnight. Maintain a calm and quiet environment. (4) Atrial fibrillation: - Currently holding eliquis, resume when stable from surgical standpoint - In NSR at bedside. (5) HTN (hypertension): - Continue lisinopril-hctz 0.5 mg BID, metoprolol succinate 50 mg PO QD - BP stable (6) Chronic asthmatic bronchitis: - Continue Spiriva, prednisone 10 mg daily (7) Depression: - Continue buspar 15 mg BID, may use ativan prn during admission - Significant social stressors as per HPI - would recommend counseling upon discharge so that he has another outlet for stress relief, and or other therapy so that he may be able to decompress. May also recommend meditation daily. Consider pastoral consult if the patient would like during this admission. (8) Anxiety: - buspar as above Code: Full code Dispo: From home, pending PT/OT consults and primary d/c Thank you for involving us in the care of Mr. Newton. Please do not hesitate to call with questions or concerns. Medicine service will follow along. Supervising Physician Co-Signing Physician Notes patient seen and examined, chart reviewed, case discussed with HAI Sellers and I agree with her assessment and plan as documented above. Briefly, patient is a pleasant 64yo C male s/p L2-S1 Decompression and Fusion, L4-L5 Hardware Removal performed by Dr. Grullon today. Surgery well tolerated, no immediate complications identified. Patient with brief episode of altered sensorium, ?hallucination in the immediate post-operative period. Still with numbness of his BL LE, no BM or flatus yet. He is starting to feel some mild pain. +PO well tolerated. On exam he is afebrile, HD stable, NAD Skin - drain in place with serosanguinous drainage HEENT - NC/AT, PERRL, MMM, neck supple Heart - +S1/S2, regular, no m/r/g Lungs - CTA Abd - diminished bowel sounds, soft, NT/ND Ext - neurovascularly intact, no tenderness/redness or swelling of right great toe Images reviewed Assessment/Plan: 64yo C male s/p decompression and fusion L2-S1 with hardware removal. Patient doing well. -Plan as above -Clarification - patient is presently on Prednisone 10mg po daily for pre- admission gout flare. He does not take Prednisone daily for a respiratory diagnosis Thank you for this consult. History of Present Illness Reason for Consultation: Medical management Requesting Physician: Dr. Grullon Attending Physician: Renan Grullon, DO History of Present Illness This is a 64 yo M with PMHx of paroxysmal afib on Eliquis, HTN, asthma, DDD, anxiety and depression, osteoarthritis and spinal stenosis who underwent elective spinal surgery by Dr. Grullon today, 08/14/19 which included removal of previous hardware and spinal fusion decompression of multiple lumbar and sacral vertebra. The patient states "I'm not doing very well" when i was in the room. 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 He is teary eyed while describing this painful situation. He notes that he has been hallucinating with seeing a lab like room and things and voices which he knows are not real since coming out of surgery today. Never before has he experienced anything like this with surgery or anesthesia, and has "had plenty of surgery" before. He reports a pain going across the posterior mid back, like at the bottom of his rib cage which is significantly uncomfortable. He feels like there is a bar in the bed which is pressing on the area. I and two other nurses helped to reposition him higher in my bed during the visit however that did not alleviate the pain. Another issue is that his eyes feel like there is sand in them. Overall he is hoping to just get a bit of rest tonight. Allergies Allergy/AdvReac Type Severity Reaction Status Date / Time No Known Allergies Allergy Verified 08/14/19 09:11 Home Medications Home Medications Medication Instructions Recorded Confirmed Type aspirin [Aspir-81] 81 mg PO BID 11/23/18 08/14/19 History buspirone 15 mg PO BID 11/23/18 08/14/19 History lisinopril-hydrochlorothiazide 0.5 tab PO BID 11/23/18 08/14/19 History tiotropium bromide [Spiriva 2 puff INHALATION QAM 11/23/18 08/14/19 History Respimat] tramadol 50 mg tablet 50 mg PO BID PRN #80 tab 06/05/19 08/14/19 Rx albuterol sulfate HFA 90 1 - 2 puffs INHALATION Q4H PRN #1 06/14/19 08/14/19 History mcg/actuation aerosol inhaler gm apixaban 5 mg tablet 5 mg PO BID #60 tab 06/14/19 08/14/19 History alprazolam 0.5 mg tablet 0.5 mg PO DAILY PRN #30 tab 06/28/19 08/14/19 Rx fluticasone furoate 200 1 inh INHALATION QAM #60 ea 07/21/19 08/14/19 Rx mcg-vilanterol 25 mcg/dose inhalation powder naproxen 500 mg tablet 500 mg PO DAILY #30 tab 07/24/19 08/14/19 Rx tamsulosin 0.4 mg capsule 0.4 mg PO HS #90 cap 08/08/19 08/14/19 Rx metoprolol succinate ER 50 mg 50 mg PO BID #60 tab 08/10/19 08/14/19 Rx tablet,extended release 24 hr colchicine 0.6 mg PO BID 08/14/19 08/14/19 History prednisone 10 mg PO DAILY 08/14/19 08/14/19 History Patient History Family History Father Family history of melanoma Osteoarthritis Myocardial infarction Hypertension Kidney malignant neoplasm Melanoma Mother Family history of colon cancer Social History Preferred Language: Pashto Communication Ability: Effective Visual Impairment: No Limitations Hearing Ability: Hard of Hearing Automatic 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 Tender Required: No Beliefs That Will Affect Care: None marital status: Current Living Situation: Spouse and Other Current Living Situation Comment: [employer] SON (SPECIAL NEEDS) current occupational status: retired Other Information That Helps Us Care for You: No Feels Safe at Home: Yes Safety Concerns: Feels Safe At This Time Smoking Status: Never smoker Do You Dip or Chew Tobacco: No ; Second Hand Exposure: No ; Hx Alcohol Use: Yes Alcohol type: beer and hard liquor Hx Substance Use: No Dental Care, Regularly: No Physical Activity Frequency: Does not Exercise Review of Systems Review of Systems: Constitutional: No fever, sweats or chills Eyes: No diplopia, no worsening or blurred vision ENT: normal hearing, no trouble swallowing Respiratory: No cough, sputum, dyspnea at rest or on exertion Cardiovascular: No chest pain, tightness or palpitations Abdomen: No pain, nausea, vomiting, diarrhea or constipation Musculoskeletal: No joint pain, calf pain, swelling Neurologic: No weakness, numbness/tingling, or balance problems Psychiatric: No anxiety or depression Skin: No rash or itch Physical Exam Physical Exam: General: awake, alert, no apparent distress, + morbid obesity Head: Normocephalic, atraumatic ENT: PERRL, EOMI, no pharyngeal exudate, mucous membranes moist Chest: Clear to auscultation, on room air, no adventitious breath sounds Cardiac: Regular rate and rhythm, no murmur, no JVD, normal peripheral pulses, good capillary refill Abdominal: NABS x 4 quadrants, soft, nontender to palpation, no rebound, guarding or tenderness Extremities: Normal inspection, no peripheral edema or erythema, calfs nontender to palpation Back: ARUN drains in place are full. : romeo catheter in place draining clear yellow urine. Psych: Depressed and anxious, teary eyed at times. Neuro: AAO x 3, strength intact bilaterally and related 5/5, no motor deficits, speech is clear, no peripheral sensory deficits Results & Data Vital Signs (Past 12 Hours) Vital Signs Temp Pulse Pulse Pulse Resp BP BP 08/14/19 16:18 69 18 115/74 08/14/19 15:45 36.4 C L 70 16 109/69 08/14/19 15:30 67 18 104/65 08/14/19 15:20 36.1 C L 67 13 112/60 08/14/19 15:10 67 17 128/67 08/14/19 15:00 67 15 112/64 08/14/19 14:50 62 13 116/65 08/14/19 14:40 71 21 120/65 08/14/19 14:30 69 18 118/70 08/14/19 14:20 73 16 134/65 08/14/19 14:10 36.7 C 75 15 132/60 08/14/19 09:13 36.6 C 66 18 137/78 Pulse Ox 08/14/19 16:18 96 08/14/19 15:45 96 08/14/19 15:30 93 08/14/19 15:20 94 08/14/19 15:10 93 08/14/19 15:00 96 08/14/19 14:50 91 08/14/19 14:40 98 08/14/19 14:30 97 08/14/19 14:20 99 08/14/19 14:10 99 08/14/19 09:13 94 PG Care Time/CCT Total # of Minutes Spent Total Time Spent with Patient: Total time spent is greater than 50% in coordination of care (as documented) at patient's floor/unit and/or counseling patient: (1) Atrial fibrillation Atrial fibrillation type: unspecified Qualified Code(s): I48.91 - Unspecified atrial fibrillation (2) Depression Active/Remission status: currently active Depression Type: major depressive disorder Major depression episode severity: moderate Major depression recurrence: recurrent Qualified Code(s): F33.1 - Major depressive disorder, recurrent, moderate
[2019-08-14] MEDS ORDERED: ARTIFICIAL TEARS OP PRN (18:06)
[2019-08-14] MEDS: CEFAZOLIN 2000MG 2,000 MG/15 ML SYR IV SCH (18:31)
[2019-08-14] MEDS: KETOROLAC TROMETHAMINE 15 MG/ML VIAL IV SCH ×2 (18:31→23:12)
[2019-08-14] MEDS: BusPIRone 15 MG TAB PO SCH (21:12)
[2019-08-14] MEDS: ASPIRIN 81 MG ECTAB PO SCH (21:13)
[2019-08-14] MEDS: LISINOPRIL/HCTZ 10/12.5MG TAB PO SCH (21:13)
[2019-08-14] MEDS: TAMSULOSIN HCL 0.4 MG CAP PO SCH (21:13)
[2019-08-14] MEDS: DOCUSATE SODIUM/SENNA 50/8.6MG TAB PO SCH (21:14)
[2019-08-14] MEDS: METOPROLOL SUCC 50MG EXT REL TAB PO SCH (21:14)
[2019-08-14] MEDS: OXYCODONE HCL IR 5 MG TAB (IMMEDIATE RELEASE) PO PRN (23:12)
[2019-08-15] MEDS: CEFAZOLIN 2000MG 2,000 MG/15 ML SYR IV SCH (02:46)
[2019-08-15] MEDS: KETOROLAC TROMETHAMINE 15 MG/ML VIAL IV SCH ×2 (05:28→12:06)
[2019-08-15] MEDS: LACTATED RINGER'S 1,000 ML IV SCH (05:28)
[2019-08-15] MEDS: POLYETHYLENE (MIRALAX) 17 GM PACK PO SCH ×4 (05:28→23:52)
[2019-08-15 06:33] LABS: Hematocrit (blood only) 32.8 % (42-52); Hemoglobin 11.1 g/dL (14.0-18.0); Immature Granulocytes # (auto) 0.07 K/uL (0.00-0.02); Immature Granulocytes % (auto) 0.5 %; Lymphocytes # (auto) 0.65 K/uL (1.2-3.4); Lymphocytes % (auto) 4.4 %; Mean Corpuscular Hemoglobin 29.3 pg (25-34); Mean Corpuscular Hgb Conc 33.8 g/dL (32-36); Mean Corpuscular Volume 86.5 fL (80-100); Mean Platelet Volume 10.6 fL (7.4-10.4); Monocytes # (auto) 1.14 K/uL (0.11-0.59); Monocytes % (auto) 7.8 %; Neutrophils # (auto) 12.75 K/uL (1.4-6.5); Neutrophils % (auto) 87.3 %; Platelet Count 179 K/uL (130-400); RDW Coefficient of Variation 13.9 % (11.5-14.5); RDW Standard Deviation 44.2 fL (36.4-46.3); Red Blood Count 3.79 M/uL (4.7-6.1); White Blood Count 14.61 K/uL (4.8-10.8)
[2019-08-15 07:08] LABS: BUN Creatinine Ratio 20.1 (10-20); Calcium 8.5 mg/dl (8.5-10.1); Est GFR (African American) 63.4; Est GFR (Non-African American) 54.7; Potassium 4.5 mmol/L (3.5-5.1)
--- NOTE | 2019-08-15 08:22 | Anesthesiology Progress Note ---
Date of Service August 15, 2019 Anesthesia Post Procedure Vital Signs Vital Signs: Temp Pulse Pulse Pulse Resp BP BP 08/15/19 03:15 36.8 C 88 18 116/57 L 08/14/19 23:35 36.7 C 82 18 110/76 08/14/19 21:18 08/14/19 21:08 80 18 134/84 08/14/19 18:44 36.4 C L 68 17 135/86 08/14/19 17:45 36.3 C L 74 17 125/80 08/14/19 16:18 69 18 115/74 08/14/19 15:45 36.4 C L 70 16 109/69 08/14/19 15:30 67 18 104/65 08/14/19 15:20 36.1 C L 67 13 112/60 08/14/19 15:10 67 17 128/67 08/14/19 15:00 67 15 112/64 08/14/19 14:50 62 13 116/65 08/14/19 14:40 71 21 120/65 08/14/19 14:30 69 18 118/70 08/14/19 14:20 73 16 134/65 08/14/19 14:10 36.7 C 75 15 132/60 08/14/19 09:13 36.6 C 66 18 137/78 Pulse Ox 08/15/19 03:15 95 08/14/19 23:35 93 08/14/19 21:18 97 08/14/19 21:08 08/14/19 18:44 95 08/14/19 17:45 94 08/14/19 16:18 96 08/14/19 15:45 96 08/14/19 15:30 93 08/14/19 15:20 94 08/14/19 15:10 93 08/14/19 15:00 96 08/14/19 14:50 91 08/14/19 14:40 98 08/14/19 14:30 97 08/14/19 14:20 99 08/14/19 14:10 99 08/14/19 09:13 94 Pain Intensity Lower Back: Pain Intensity: 2 Notes Mental Status: alert / awake / arousable and participated in evaluation Patient Amnestic to Procedure: Yes Nausea / Vomiting: adequately controlled Pain: adequately controlled Airway Patency, RR, SpO2: stable & adequate BP & HR: stable & adequate Hydration State: stable & adequate Anesthetic Complications: no major complications apparent and Pt Satisfied with anesthetic care
[2019-08-15] MEDS: BusPIRone 15 MG TAB PO SCH ×2 (08:37→21:08)
[2019-08-15] MEDS: ASPIRIN 81 MG ECTAB PO SCH ×2 (08:38→21:08)
[2019-08-15] MEDS: predniSONE 10 MG TABLET PO SCH (08:38)
[2019-08-15] MEDS: LISINOPRIL/HCTZ 10/12.5MG TAB PO SCH ×2 (08:38→21:06)
[2019-08-15] MEDS: METOPROLOL SUCC 50MG EXT REL TAB PO SCH ×2 (08:39→21:08)
[2019-08-15] MEDS: TIOTROPIUM BROMIDE 5 PUFF/90 MCG INH INH SCH (08:44)
[2019-08-15] MEDS: TRAMADOL HCL 50 MG TABLET PO PRN ×2 (08:44→21:06)
--- NOTE | 2019-08-15 10:38 | Orthopedic Progress Note ---
Date of Service August 15, 2019 Assessment & Plan (1) Spinal stenosis, lumbar region with neurogenic claudication: This time will initiate physical therapy monitor his ARUN output hopefully discharge home by the end of the week. Present on Admission?: Yes Subjective Patient's back pain is controlled. He notes marked improvement of his leg symptoms. Physical Exam Physical Exam: On exam he is in the chair at the bedside. Is good strength testing. Appears comfortable. Results & Data Vital Signs (Past 12 Hours) Vital Signs Temp Pulse Pulse Resp BP Pulse Ox 08/15/19 08:35 71 111/73 08/15/19 03:15 36.8 C 88 18 116/57 L 95 08/14/19 23:35 36.7 C 82 18 110/76 93
--- NOTE | 2019-08-15 12:46 | Hospitalist Progress Note ---
Date of Service August 15, 2019 Assessment & Plan (1) Spinal stenosis, lumbar region with neurogenic claudication: - POD#1, doing well. - Pain management per primary team. - PT/OT for discharge planning. - DVT ppx: ASA 81 mg BID. (2) Anemia: - Acute blood loss anemia; expected following operative period. - Continue to trend CBC daily. (3) Dry eyes: - Artificial tears prn. (4) Hallucination: - Likely related to operative period/anesthesia. - Re-orient frequently. (5) Atrial fibrillation: - Continue Metoprolol 50 mg BID as prescribed. - Currently holding home Eliquis, resume per ortho. (6) HTN (hypertension): - Continue Metoprolol and Lisinopril-HCTZ as prescribed. (7) Chronic asthmatic bronchitis: - Continue Spiriva as prescribed. (8) Depression: - Buspar 15 mg BID with Ativan prn. (9) Anxiety: - Buspar BID; Ativan prn. (10) Gout: - Currently on Prednisone taper - 10 mg PO daily. - Taper as tolerated. Dispo: Will continue to follow, please call with any questions. Subjective Pt. is doing well overall - he c/o irritation at site of dressing but otherwise denies uncontrolled back pain, chest pain, SOB. Is passing gas, no BM yet. Corey was removed, is voiding without difficulty. Review of Systems Review of Systems: All systems reviewed & are unremarkable except as noted in HPI & below Constitutional: no fever, no chills, no fatigue and no weakness Respiratory: no cough, no dyspnea, no dyspnea on exertion and no wheezing Cardiovascular: no chest pain, no palpitations and no edema Gastrointestinal: + constipation; no abdominal pain, no nausea and no vomiting Genitourinary: no difficulty urinating Musculoskeletal: + back pain; no joint pain Integumentary: no non-healing lesions Physical Exam Physical Exam: General: Resting comfortably HEENT: NC/AT; PERRLA with EOMI; [place] conjunctiva, MMM. No erythema of posterior pharynx Neck: Supple and nontender Cardiac: RRR Lungs: CTA bilaterally Abdomen: Bowel normoactive X 4; Nontender to palpation Extremities: Warm. No edema present Neuro: No focal weakness Skin: No rash Results & Data Vital Signs (Past 12 Hours) Vital Signs Temp Pulse Pulse Resp BP Pulse Ox 08/15/19 08:35 71 111/73 08/15/19 03:15 36.8 C 88 18 116/57 L 95 Laboratory Results 08/15/19 08/15/19 Range/Units 06:07 06:07 WBC 14.61 H (4.8-10.8) K/uL RBC 3.79 L (4.7-6.1) M/uL Hgb 11.1 L (14.0-18.0) g/dL Hct 32.8 L (42-52) % MCV 86.5 (80-100) fL MCH 29.3 (25-34) pg MCHC 33.8 (32-36) g/dL RDW Std Deviation 44.2 (36.4-46.3) fL RDW Coeff of Leslie 13.9 (11.5-14.5) % Plt Count 179 (130-400) K/uL MPV 10.6 H (7.4-10.4) fL Immature Gran % (Auto) 0.5 % Neut % (Auto) 87.3 % Lymph % (Auto) 4.4 % [place] % (Auto) 7.8 % Eos % (Auto) 0.0 % Baso % (Auto) 0.0 % Immature Gran # (Auto) 0.07 H (0.00-0.02) K/uL Neut # (Auto) 12.75 H (1.4-6.5) K/uL Lymph # (Auto) 0.65 L (1.2-3.4) K/uL [place] # (Auto) 1.14 H (0.11-0.59) K/uL Eos # (Auto) 0.00 (0-0.5) K/uL Baso # (Auto) 0.00 (0-0.2) K/uL Sodium 137 (136-145) mmol/L Potassium 4.5 (3.5-5.1) mmol/L Chloride 105 (98-107) mmol/L Carbon Dioxide 23 (21-32) mmol/L Anion Gap 9.0 (3-11) BUN 27 H (7-18) mg/dl Creatinine 1.35 (0.6-1.4) mg/dl Est Cr Clr Drug Dosing 74.0 ml/min Est GFR ( Amer) 63.4 Est GFR (Non-Af Amer) 54.7 BUN/Creatinine Ratio 20.1 H (10-20) Glucose 119 H (70-99) mg/dl Calcium 8.5 (8.5-10.1) mg/dl PG Care Time/CCT Total # of Minutes Spent Total Time Spent with Patient: Total time spent is greater than 50% in coordination of care (as documented) at patient's floor/unit and/or counseling patient: (1) Atrial fibrillation Atrial fibrillation type: unspecified Qualified Code(s): I48.91 - Unspecified atrial fibrillation (2) Depression Active/Remission status: currently active Depression Type: major depressive disorder Major depression episode severity: moderate Major depression recurrence: recurrent Qualified Code(s): F33.1 - Major depressive disorder, recurrent, moderate
[2019-08-15] MEDS: DOCUSATE SODIUM/SENNA 50/8.6MG TAB PO SCH (21:06)
[2019-08-15] MEDS: TAMSULOSIN HCL 0.4 MG CAP PO SCH (21:07)
[2019-08-16] MEDS: POLYETHYLENE (MIRALAX) 17 GM PACK PO SCH ×3 (05:28→17:28)
[2019-08-16] MEDS: TRAMADOL HCL 50 MG TABLET PO PRN ×3 (05:31→20:37)
[2019-08-16 05:53] LABS: Hematocrit (blood only) 32.9 % (42-52); Mean Corpuscular Hemoglobin 29.5 pg (25-34); Mean Corpuscular Hgb Conc 33.4 g/dL (32-36); Mean Corpuscular Volume 88.2 fL (80-100); Mean Platelet Volume 11.2 fL (7.4-10.4); Platelet Count 180 K/uL (130-400); RDW Coefficient of Variation 14.4 % (11.5-14.5); RDW Standard Deviation 46.7 fL (36.4-46.3); Red Blood Count 3.73 M/uL (4.7-6.1); White Blood Count 10.32 K/uL (4.8-10.8)
[2019-08-16 06:26] LABS: BUN Creatinine Ratio 22.5 (10-20); Calcium 9.1 mg/dl (8.5-10.1); Creatinine Clr Calc Pharmacy 78.1 ml/min; Est GFR (African American) 67.6; Est GFR (Non-African American) 58.3; Potassium 4.4 mmol/L (3.5-5.1)
[2019-08-16] MEDS: FLUTICASONE INH SCH (07:58)
[2019-08-16] MEDS: TIOTROPIUM BROMIDE 5 PUFF/90 MCG INH INH SCH (07:58)
[2019-08-16] MEDS: VILANTEROL INH SCH (07:58)
[2019-08-16] MEDS: predniSONE 10 MG TABLET PO SCH (07:59)
[2019-08-16] MEDS: LISINOPRIL/HCTZ 10/12.5MG TAB PO SCH ×2 (07:59→20:36)
[2019-08-16] MEDS: ASPIRIN 81 MG ECTAB PO SCH ×2 (08:00→20:37)
[2019-08-16] MEDS: METOPROLOL SUCC 50MG EXT REL TAB PO SCH ×2 (08:00→20:37)
[2019-08-16] MEDS: BusPIRone 15 MG TAB PO SCH ×2 (08:00→20:38)
--- NOTE | 2019-08-16 09:17 | Orthopedic Progress Note ---
Date of Service August 16, 2019 Assessment & Plan (1) Spinal stenosis, lumbar region with neurogenic claudication: This time we will continue physical therapy monitor his ARUN output advance his bowel regiment hopefully discharge home tomorrow. Present on Admission?: Yes Subjective Patient's back pain is controlled leg symptoms still markedly improved. Physical Exam Physical Exam: Patient is sitting up at the bedside. Is good strength testing. Appears comfortable. Results & Data Vital Signs (Past 12 Hours) Vital Signs Temp Pulse Pulse Resp BP Pulse Ox 08/16/19 07:56 75 108/68 08/16/19 06:18 36.8 C 66 16 114/75 91 08/15/19 23:49 36.9 C 67 16 129/77 92
--- NOTE | 2019-08-16 11:33 | Hospitalist Progress Note ---
Date of Service August 16, 2019 Assessment & Plan (1) Spinal stenosis, lumbar region with neurogenic claudication: - POD#2, doing well. - Pain management per primary team. - PT/OT for discharge planning. - DVT ppx: ASA 81 mg BID. (2) Anemia: - Acute blood loss anemia; is trending down as expected. - Continue to trend CBC daily - does not require transfusion support. (3) Dry eyes: - Artificial tears prn. (4) Hallucination: - Likely related to operative period/anesthesia; now resolved. (5) Atrial fibrillation: - Continue Metoprolol 50 mg BID as prescribed. - Currently holding home Eliquis, resume per ortho. (6) HTN (hypertension): - Continue Metoprolol and Lisinopril-HCTZ as prescribed. (7) Chronic asthmatic bronchitis: - Continue Spiriva as prescribed. (8) Depression: - Buspar 15 mg BID. (9) Anxiety: - Buspar BID; Ativan prn. (10) CKD (chronic kidney disease), stage III: - Renally dose all meds; renal function currently at baseline. (11) Gout: - Currently on Prednisone 10 mg daily -- will taper to 5 mg on 08/17 and 2.5 mg on 08/18 then discontinue. Dispo: Will sign off, please call with any questions. Subjective Pt. complains of pain at incision site related to dressing and drain. He is passing gas, no BM yet. Gout flare up on right foot is now resolved, will taper Prednisone dose. Review of Systems Review of Systems: All systems reviewed & are unremarkable except as noted in HPI & below Constitutional: no fever, no chills, no fatigue and no weakness Respiratory: no cough, no dyspnea, no dyspnea on exertion and no wheezing Cardiovascular: no chest pain, no palpitations and no edema Gastrointestinal: + constipation; no abdominal pain and no nausea Genitourinary: no difficulty urinating Musculoskeletal: + back pain; no joint pain Integumentary: no non-healing lesions Physical Exam Physical Exam: General: Resting comfortably HEENT: NC/AT; PERRLA with EOMI; [place] conjunctiva, MMM. No erythema of posterior pharynx Neck: Supple and nontender Cardiac: RRR Lungs: CTA bilaterally Abdomen: Bowel normoactive X 4; Nontender to palpation Extremities: Warm. No edema present Neuro: No focal weakness Skin: No rash Results & Data Vital Signs (Past 12 Hours) Vital Signs Temp Pulse Pulse Resp BP Pulse Ox 08/16/19 07:56 75 108/68 08/16/19 06:18 36.8 C 66 16 114/75 91 08/15/19 23:49 36.9 C 67 16 129/77 92 Laboratory Results 08/16/19 08/16/19 08/14/19 Range/Units 04:59 04:59 08:59 WBC 10.32 (4.8-10.8) K/uL RBC 3.73 L (4.7-6.1) M/uL Hgb 11.0 L (14.0-18.0) g/dL Hct 32.9 L (42-52) % MCV 88.2 (80-100) fL MCH 29.5 (25-34) pg MCHC 33.4 (32-36) g/dL RDW Std Deviation 46.7 H (36.4-46.3) fL RDW Coeff of Leslie 14.4 (11.5-14.5) % Plt Count 180 (130-400) K/uL MPV 11.2 H (7.4-10.4) fL Sodium 138 (136-145) mmol/L Potassium 4.4 (3.5-5.1) mmol/L Chloride 105 (98-107) mmol/L Carbon Dioxide 28 (21-32) mmol/L Anion Gap 5.0 (3-11) BUN 29 H (7-18) mg/dl Creatinine 1.28 (0.6-1.4) mg/dl Est Cr Clr Drug Dosing 78.1 ml/min Est GFR ( Amer) 67.6 Est GFR (Non-Af Amer) 58.3 BUN/Creatinine Ratio 22.5 H (10-20) Glucose 89 (70-99) mg/dl Calcium 9.1 (8.5-10.1) mg/dl Crossmatch See Detail PG Care Time/CCT Total # of Minutes Spent Total Time Spent with Patient: Total time spent is greater than 50% in coordination of care (as documented) at patient's floor/unit and/or counseling patient: (1) Atrial fibrillation Atrial fibrillation type: unspecified Qualified Code(s): I48.91 - Unspecified atrial fibrillation (2) Depression Active/Remission status: currently active Depression Type: major depressive disorder Major depression episode severity: moderate Major depression recurrence: recurrent Qualified Code(s): F33.1 - Major depressive disorder, recurrent, moderate
[2019-08-16] MEDS: TAMSULOSIN HCL 0.4 MG CAP PO SCH (20:38)
[2019-08-16] MEDS: DOCUSATE SODIUM/SENNA 50/8.6MG TAB PO SCH (20:38)
[2019-08-17] MEDS: POLYETHYLENE (MIRALAX) 17 GM PACK PO SCH (01:32)
[2019-08-17] MEDS: TRAMADOL HCL 50 MG TABLET PO PRN ×4 (05:21→23:27)
[2019-08-17] MEDS: ASPIRIN 81 MG ECTAB PO SCH ×2 (08:26→20:09)
[2019-08-17] MEDS: VILANTEROL INH SCH (08:26)
[2019-08-17] MEDS: FLUTICASONE INH SCH (08:26)
[2019-08-17] MEDS: BusPIRone 15 MG TAB PO SCH ×2 (08:26→20:07)
[2019-08-17] MEDS: TIOTROPIUM BROMIDE 5 PUFF/90 MCG INH INH SCH (08:27)
[2019-08-17] MEDS: LISINOPRIL/HCTZ 10/12.5MG TAB PO SCH ×2 (08:30→20:07)
[2019-08-17] MEDS: METOPROLOL SUCC 50MG EXT REL TAB PO SCH ×2 (08:30→20:07)
[2019-08-17] MEDS ORDERED: predniSONE 5 MG TAB PO SCH (09:00)
--- NOTE | 2019-08-17 13:01 | Orthopedic Progress Note ---
Date of Service August 17, 2019 Assessment & Plan (1) Spinal stenosis, lumbar region with neurogenic claudication: This time we will maintain the ARUN drain another 24 hours and anticipate discharge home tomorrow. Present on Admission?: Yes Subjective Patient struggling with some back pain. Leg symptoms improved. Tolerating physical therapy well. Physical Exam Physical Exam: Patient is in bed. Is good strength testing. Is comfortable at this time. Results & Data Vital Signs (Past 12 Hours) Vital Signs Temp Pulse Pulse Resp BP Pulse Ox 08/17/19 08:29 83 106/66 08/17/19 06:20 36.8 C 67 18 113/73 92
[2019-08-17] MEDS: DOCUSATE SODIUM/SENNA 50/8.6MG TAB PO SCH (20:07)
[2019-08-17] MEDS: TAMSULOSIN HCL 0.4 MG CAP PO SCH (20:09)
[2019-08-18] MEDS: TRAMADOL HCL 50 MG TABLET PO PRN (07:07)
[2019-08-18] MEDS: BusPIRone 15 MG TAB PO SCH (08:32)
[2019-08-18] MEDS: ASPIRIN 81 MG ECTAB PO SCH (08:32)
[2019-08-18] MEDS: LISINOPRIL/HCTZ 10/12.5MG TAB PO SCH (08:33)
[2019-08-18] MEDS: METOPROLOL SUCC 50MG EXT REL TAB PO SCH (08:33)
[2019-08-18] MEDS: TIOTROPIUM BROMIDE 5 PUFF/90 MCG INH INH SCH (08:34)
[2019-08-18] MEDS: FLUTICASONE INH SCH (08:34)
[2019-08-18] MEDS: VILANTEROL INH SCH (08:34)
[2019-08-18] MEDS ORDERED: predniSONE 2.5 MG TAB PO ONE (09:00)
[2019-08-18] MEDS: OXYCODONE HCL IR 5 MG TAB (IMMEDIATE RELEASE) PO PRN (12:19)
--- NOTE | 2019-08-18 13:36 | Discharge Summary ---
Date of Service August 18, 2019 Admission HPI Per Admitting Provider This is a 64-year-old male well-known to me that presents with chronic persistent back and bilateral leg pain after failing extensive course of nonoperative care is here for surgical intervention. Principal Diagnosis Lumbar spinal stenosis with neurogenic claudication Discharge Data Allergies Allergy/AdvReac Type Severity Reaction Status Date / Time No Known Allergies Allergy Verified 08/14/19 09:11 Consultations 08/14/19 15:43 Consult Case Management - Discharge Planning Routine Consult Hospitalist Routine Procedures Performed Operation Date: 08/14/19 10:15 Actual Procedures p L2-S1 Decompression and Fusion, L4-L5 Hardware Removal, with Bone Morphogenetic Protein and Osteoamp Allograft, L3-L4 and L5-S1 Interbody Cages, with Spinal Cord Monitoring(Not Applicable) - Renan Grullon DO Ordered Studies 08/14/19 10:15 FL fluoroscopy <1hr Routine FL lumbar spine 2-3V Routine Hospital Course (1) Spinal stenosis, lumbar region with neurogenic claudication: Patient underwent multilevel lumbar decompression fusion tolerated as well as taken the orthopedic floor postoperative. Postop day 1 he was up and ambulating with a postop day #2 and 3 ARUN drain decreasing probably. Strength improving. As well as independence. Subsequently is discharged home. Discharge orders instructions can be found the chart for further review. Upon discharge he was neurologically intact and comfortable. Total Time Total Time Spent Total Time Spent (In Minutes): 20 minutes Discharge Plan Discharge Items Patient Disposition: Home - Self-Care Reason For Visit: Low Back Pain Discharge Diagnosis: Lumbar spinal stenosis with neurogenic claudication Activity: Per Instructions section Non-emergency contact: Primary Care Provider Call non-emergency contact if: you have any medication questions Follow-up/Referrals: Ronak Marie III, CRNP [Primary Care Provider] - Diet: Regular Addtl Attending Provider Instructions: ACTIVITY RECOMMENDATIONS: SELF CARE INSTRUCTIONS AFTER THORACIC/LUMBAR FUSIONS 1. You may walk to your tolerance. It is good exercise for your legs and back. Expect some back and intermittent leg aches and pains. 2. You may perform "counter-top" level activities (make a sandwich, salvador with a project, etc.). 3. No bending or lifting of more than 10 pounds or back twisting of any nature (roll like a log when turning in bed). 4. You may ride in a car for 20-30 minutes at a time. No driving until after your first visit with your doctor. 5. Frequent changes of position and restricting sitting to 30 minutes at a time will help limit the amount of back spasms and stiffness you may experience. 6. You may discontinue the use of ambulatory aids (cane, crutches, etc.) once your strength and confidence allow. 7. You may appointment coordinator the shower and let water strike your incision when you arrive home at least once daily. Do not take a tub bath, sit in a hot tub or go into a swimming pool until after your first recheck in the office. SPECIAL CARE INSTRUCTIONS: VERY IMPORTANT TO READ AND REVIEW A. Your surgical incision has been closed with a cosmetic suture under the skin that will dissolve in about 6 weeks. In 14 days, you can use a pair of clean scissors and cut the suture that is left outside of the skin at the ends of your incision. 1. The small skin tapes can be removed 7 days after surgery if they have not fallen off by that point. 2. You may keep the wound open to air as much as possible to promote healing after post-op day number 5 unless told otherwise by your doctor. 3. If you think the wound looks like it is becoming infected (redness or worsening drainage) and/or you are experiencing fever, chill or worsening back pain and muscle spasms, contact the office so that we may evaluate you as soon as possible. B. Complications are uncommon, but please contact us if you have any signs or symptoms of: 1. wound infection (fever higher than 102.5 degrees F, redness, separation of wound, drainage, or increasing pain from the incision) 2. blood clots in legs (pain, swelling, redness and warmth in legs) 3. urinary tract infection (fever higher than 102.5 degrees F, burning upon urination or increased frequency of urination) 4. nerve problems (inability to walk on your toes or heels, numbness, loss of bowel or bladder control) 5. any other symptoms that concern you C. Please call the office at if you have any concerns or questions about your operation or recovery. D. No smoking! Smoking drastically decreases the chance of a solid fusion. E. Do not take any anti-inflammatory medications (Indocin, Advil, Motrin, Aspirin, Naprosyn, etc.) as these may inhibit the chance of a solid fusion. Tylenol is okay to take for pain. MANAGING PAIN AFTER SPINAL SURGERY 1. Narcotic medication is intended for short-term use and will be provided for surgical pain. Surgical pain usually lasts for a period of 4-6 weeks. Narcotic medication includes Percocet, Vicodin, Darvocet, Tylenol #3 or Lortab. 2. Longer-term pain is more appropriately treated with non-narcotic medication such as Tylenol ES. 3. Muscle spasm is not appropriately treated with narcotics. Muscle relaxers such as Soma, Flexeril or Skelaxin can be used along with Tylenol ES. 4. Remember that we all live with some "aches and pains". This is not unusual or uncommon after an injury or as we get older. a. Back pain is expected and may include muscle spasms for 4 to 6 weeks after surgery. The pain should gradually improve. If the pain worsens for no apparent reason, please contact the office. b. Intermittent leg pain may also be experienced and should not be concerned about unless it worsens for no apparent reason. If so, please contact the office. 5. We will provide appropriate medication within the normal guidelines of their prescribed use. We will also be very cautious and aware of potential abuse and extended duration of patients' medication needs. a. Pain medications are for your comfort and to assist with sleep and rest so that the tissue can heal. They are not provided in order to return to normal activity and should not be used through the day. To do so or worsening pain at night can result from ongoing tissue damage and develop ment of tolerance to the prescribed medicine. 6. Please allow 2-3 days to process refills. Prescriptions will not be mailed but must be picked up at the office. FOLLOW UP VISIT: Keep your scheduled follow-up appointment. Any questions, please call the office at . Pending Studies at Discharge: No Stand-Alone Forms: My [facility] [place], Opioid Pain Management Medications and DC Order Prescriptions: New tramadol 50 mg Tablet 50 mg PO Q4H PRN (Reason: Pain, Moderate) Qty: 30 RF: 0 oxycodone 5 mg Tablet 5 mg PO Q4H PRN (Reason: Pain, Severe) Qty: 30 RF: 0 Continued tramadol 50 mg tablet 50 mg PO BID PRN (Reason: Pain) Qty: 80 RF: 2 alprazolam 0.5 mg tablet 0.5 mg PO DAILY PRN (Reason: Anxiety) Qty: 30 RF: 2 Breo Ellipta 200-25 mcg/dose blister with device 1 inh INHALATION QAM Qty: 60 RF: 1 naproxen 500 mg tablet 500 mg PO DAILY Qty: 30 RF: 5 metoprolol succinate 50 mg tablet extended release 24 hr 50 mg PO BID Qty: 60 RF: 5 apixaban 5 mg tablet 5 mg PO BID Qty: 60 RF: 0 albuterol sulfate 90 mcg/actuation HFA aerosol inhaler 1 - 2 puffs inhalation Q4H PRN (Reason: shortness of breath) Qty: 1 RF: 0 tamsulosin 0.4 mg capsule 0.4 mg PO HS Qty: 90 RF: 3 aspirin [Aspir-81] 81 mg Tablet,Delayed Release (Dr/Ec) 81 mg PO BID RF: 0 lisinopril-hydrochlorothiazide 10-12.5 mg Tablet 0.5 tab PO BID RF: 0 buspirone 15 mg Tablet 15 mg PO BID RF: 0 Spiriva Respimat 1.25 mcg/actuation Mist 2 puff INHALATION QAM RF: 0 colchicine 0.6 mg Capsule 0.6 mg PO BID RF: 0 Discontinued prednisone 10 mg Tablet 10 mg PO DAILY RF: 0 Discharge Orders: Discharge Order (Routine); Ordered 08/18/19 Ordered By: Renan Paz/Other Patient Handouts: Surgery Prevent DVT After Admission Data Admit Date/Time: 08/14/19 13:58 Attending Provider: Renan Grullon Admit Provider: Renan Grullon Primary Care Provider: Ronak Marie III Other Providers: Wade Quinteros ; Huang Farmer Other Interventions: Discharge Summary Assessment (RN) Last Done: 08/18/19 12:42
== END 2019-08-18 14:23 | disposition home or self-care (01) | DRG 454 ==
LOC: ASU 08:39 → 3E 13:58

== ENCOUNTER 2021-08-18 08:54 | Observation (INO) ==
--- NOTE | 2021-07-28 10:18 | PAT Medication Instructions ---
Medication Instructions Date of Service July 28, 2021 Home Medications Medication Instructions Recorded tamsulosin 0.4 mg capsule 0.4 mg PO HS #90 cap 08/12/20 apixaban 5 mg tablet 5 mg PO BID #180 tab 09/02/20 fluticasone furoate 200 1 inh INHALATION QAM #180 ea 05/12/21 mcg-vilanterol 25 mcg/dose inhalation powder (Breo Ellipta) tiotropium bromide 1.25 2 puff INHALATION QAM #4 gm 05/12/21 mcg/actuation mist for inhalation (Spiriva Respimat) lisinopril 10 0.5 tab PO BID #90 tab 05/13/21 mg-hydrochlorothiazide 12.5 mg tablet alprazolam 0.5 mg tablet 0.5 mg PO DAILY PRN #30 tab 05/27/21 metoprolol succinate 50 mg 50 mg PO BID #180 tab 06/02/21 tablet,extended release 24 hr atorvastatin 40 mg tablet 40 mg PO HS #90 tab 06/06/21 buspirone 15 mg tablet 15 mg PO TID 90 Days #270 tab 07/16/21 albuterol sulfate 90 mcg/actuation aerosol inhaler 1 - 2 puffs INHALATION Q4H PRN colchicine 0.6 mg capsule 0.6 mg PO BID PRN tamsulosin 0.4 mg capsule 0.4 mg PO HS1] apixaban 5 mg tablet 5 mg PO BID fluticasone furoate 200 mcg-vilanterol 25 mcg/dose inhalation powder (Breo Ellipta) 1 inh INHALATION QAM tiotropium bromide 1.25 mcg/actuation mist for inhalation (Spiriva Respimat) 2 puff INHALATION QAM lisinopril 10 mg-hydrochlorothiazide 12.5 mg tablet 0.5 tab PO BID alprazolam 0.5 mg tablet 0.5 mg PO DAILY PRN metoprolol succinate 50 mg tablet,extended release 24 hr 50 mg PO BID atorvastatin 40 mg tablet 40 mg PO HS polyethylene glycol 3350 17 gram/dose oral powder (Miralax) 17 g PO DAILY PRN naproxen 500 mg tablet 500 mg PO DAILY PRN buspirone 15 mg tablet 15 mg PO TID docusate sodium 100 mg capsule (Colace) 100 mg PO BID dutasteride 0.5 mg capsule 0.5 mg PO QDL tramadol 50 mg tablet 50 mg PO QAM Continue as directed dutasteride 0.5 mg capsule 0.5 mg PO QDL ASK your surgeon for instructions naproxen 500 mg tablet 500 mg PO DAILY PRN ASK your prescriber and surgeon apixaban 5 mg tablet 5 mg PO BID DO NOT take the morning of surgery colchicine 0.6 mg capsule 0.6 mg PO BID PRN lisinopril 10 mg-hydrochlorothiazide 12.5 mg tablet 0.5 tab PO BID polyethylene glycol 3350 17 gram/dose oral powder (Miralax) 17 g PO DAILY PRN docusate sodium 100 mg capsule (Colace) 100 mg PO BID Take morning of surgery With a small sip of water, OTHERWISE NOTHING TO EAT OR DRINK AFTER MIDNIGHT: albuterol sulfate 90 mcg/actuation aerosol inhaler 1 - 2 puffs INHALATION Q4H PRN (use if needed; please bring with you to hospital day of surgery if possible) fluticasone furoate 200 mcg-vilanterol 25 mcg/dose inhalation powder (Breo Ellipta) 1 inh INHALATION QAM tiotropium bromide 1.25 mcg/actuation mist for inhalation (Spiriva Respimat) 2 puff INHALATION QAM alprazolam 0.5 mg tablet 0.5 mg PO DAILY PRN (if needed) metoprolol succinate 50 mg tablet,extended release 24 hr 50 mg PO BID buspirone 15 mg tablet 15 mg PO TID tramadol 50 mg tablet 50 mg PO QAM (okay to take up to 4 hours prior to surgery if needed) Take evening before surgery albuterol sulfate 90 mcg/actuation aerosol inhaler 1 - 2 puffs INHALATION Q4H PRN (if needed) colchicine 0.6 mg capsule 0.6 mg PO BID PRN (if needed) tamsulosin 0.4 mg capsule 0.4 mg PO HS lisinopril 10 mg-hydrochlorothiazide 12.5 mg tablet 0.5 tab PO BID alprazolam 0.5 mg tablet 0.5 mg PO DAILY PRN (if needed) metoprolol succinate 50 mg tablet,extended release 24 hr 50 mg PO BID atorvastatin 40 mg tablet 40 mg PO HS buspirone 15 mg tablet 15 mg PO TID docusate sodium 100 mg capsule (Colace) 100 mg PO BID Other Notes If you have any questions please call us at [phone] or [phone] or [phone] or [phone]
--- NOTE | 2021-07-29 13:10 | Anesthesiology Consultation ---
Date of Service July 29, 2021 Assessment & Plan (1) Encounter for pre-operative examination: Chart Review Chart Review: Acceptable Risk for Surgery (pending preop Covid testing and PRP DOS ) and Patient seen in Pre Admission Testing -Discussed case with Dr. Morrison- pt currently rate controlled in office re: a fib- no current issue- pt will contact PAT and cardio if palpitations occur prior to surgery; will send FYI note to PCP regarding hyponatremia - will recheck PRP DOS. Per PAT appt on 07/29/21, patient denies any recent travel or large group activities. No known Covid positive contacts or Covid related symptoms. No known Covid infection in the past 90 days Pt is vaccinated for Covid. Preop Covid testing scheduled 08/15/21= will await results. Educated on importance of self q uarantining, social distancing and wearing mask in public for the patient one week prior to surgery and after Covid testing done Last seen by PCP 07/11/21= patient seen for Medicare annual wellness exam. "Pt. is scheduled for his prostate surgery on 08/18/21." Last seen by cardio 06/06/21= Atrial fibrillation - paroxysmal- quite symptomatic in the past - improved following titration of beta maria teresa. Continue rate control strategy and AC for stroke risk reduction. Smart watch rhythm strip demonstrates sinus rhythm and regular on exam today. HTN- elevated but well controlled with other providers- no changes. HENRIQUEZ- chronic issue- DSE ordered. Atypical chest pain- occurs with anxiety and at rest- DSE ordered. Dyslipidemia- on statin. AC- on chronic AC therapy. Follow up in six months (DSE showed no signs of ischemia) Teaching & Discussion Pre-Anesthesia Teaching/Discussion Notes: Instructed NPO after midnight before surgery,except medications with 15 cc of water. Medication instructions provided according to the PAT guidelines. History Surgery Operation Date: 08/18/21 07:00 Proposed Procedures p Transurethral Resection Bladder Tumor, Cut out the tumor (s) by going through the urethra with or without multiple cup biopsies of the bladder - Thaddeus Anaya DO s Transurethral Resection Prostate - Thaddeus Anaya DO Height/Weight Height: 5 ft 10 in Weight: 121.5 kg Allergies Allergy/AdvReac Type Severity Reaction Status Date / Time No Known Allergies Allergy Verified 07/24/21 09:21 Medications Home Medications Medication Instructions Recorded Confirmed Last Taken albuterol sulfate 90 mcg/actuation 1 - 2 puffs INHALATION Q4H PRN #1 06/14/19 07/24/21 Unknown aerosol inhaler gm colchicine 0.6 mg capsule 0.6 mg PO BID PRN 12/20/19 07/24/21 Unknown tamsulosin 0.4 mg capsule 0.4 mg PO HS #90 cap 08/12/20 07/24/21 06/22/21 apixaban 5 mg tablet 5 mg PO BID #180 tab 09/02/20 07/24/21 06/22/21 fluticasone furoate 200 1 inh INHALATION QAM #180 ea 05/12/21 07/24/21 06/22/21 mcg-vilanterol 25 mcg/dose inhalation powder (Breo Ellipta) tiotropium bromide 1.25 2 puff INHALATION QAM #4 gm 05/12/21 07/24/21 06/22/21 mcg/actuation mist for inhalation (Spiriva Respimat) lisinopril 10 0.5 tab PO BID #90 tab 05/13/21 07/24/21 06/22/21 mg-hydrochlorothiazide 12.5 mg tablet alprazolam 0.5 mg tablet 0.5 mg PO DAILY PRN #30 tab 05/27/21 07/24/21 Unknown metoprolol succinate 50 mg 50 mg PO BID #180 tab 06/02/21 07/24/21 06/22/21 tablet,extended release 24 hr atorvastatin 40 mg tablet 40 mg PO HS #90 tab 06/06/21 07/24/21 06/22/21 polyethylene glycol 3350 17 17 g PO DAILY PRN 06/20/21 07/24/21 Unknown gram/dose oral powder (Miralax) naproxen 500 mg tablet 500 mg PO DAILY PRN tab 07/11/21 07/24/21 Unknown buspirone 15 mg tablet 15 mg PO TID 90 Days #270 tab 07/16/21 07/24/21 Unknown docusate sodium 100 mg capsule 100 mg PO BID 07/23/21 07/24/21 Unknown (Colace) dutasteride 0.5 mg capsule 0.5 mg PO QDL 07/23/21 07/24/21 Unknown tramadol 50 mg tablet 50 mg PO QAM 07/23/21 07/24/21 Unknown Past Medical History Medical History (Updated 07/30/21 @ 11:12 by Elif Elaine PA-C) Anxiety and depression Asthma stable > exercise induced > no res inh use Atrial fibrillation Dx 2019> follows with Dr. Quinteros > continues with palpitations- on Metoprolol - per cardio- takes extra Metoprolol and symptoms improve On Eliquis BPH (benign prostatic hyperplasia) CKD (chronic kidney disease), stage [address] Walker Degenerative disc disease Dyslipidemia Gout Recent gout episode x 1-2 days- started with left knee pain- now left toe Will check with surgeon's office to see if he can start on Colchicine - will contact PCP if symptoms continue/get worse Hypertension Insomnia Kidney stones Currently under observation Osteoarthritis Spinal stenosis Urinary retention Was seen in ER in June 2021- had romeo catheter placed x 1 weeks- no issues since Romeo catheter removed Exercise / Class Metabolic Activity III < 4 Walking/Shop/Light housework (one flight of stairs- mild SOB, no chest pain ) Past Family History Family History Father Family history of melanoma Osteoarthritis Hypertension Kidney malignant neoplasm Melanoma Cardiac disorder Myocardial infarction, Onset Age: 30 Mother Family history of colon cancer Denies family history of Ovarian cancer Prostate cancer Breast cancer Colorectal cancer Past Surgical History Surgical History History of cardiac catheterization 20 YRS AGO= NO STENTS History of colonoscopy with polypectomy History of fusion of cervical spine ACDF> ROM limited per pt History of lumbar fusion History of shoulder surgery RX2 , LX1 History of total left knee replacement History of total right hip arthroplasty (~10/2016) History of urologic surgery KIDNEY STONE REMOVAL Status post lumbar spine operation 08/14/19 Dr. Renan Grullon- Removal of posterior instrumentation L4-5; Exploration of fusion L4-5; Lumbar decompression bilateral medial facetectomies and foraminotomies L2-3 L3-4 L5-S1; Posterior spinal fusion L2- 3 L3-4 L4-5 L5-S1; Placement posterior segmental instrumentation from L2-S1; Interbody fusion L3-4 and L5-S1; Placement of titanium 11 x 26 mm cage at L3- 4 and 12 x 26 mm cage at L5-S1; Placement of locally harvested morselized autograft in the posterior lateral gutters; Placement infuse collagen sponge, master graft in the posterior lateral gutters and ostial amp and interbody space. Past Anesthesia History No Hx of Anesthesia Complications (with exception to one episode of PONV in 1988- no issues since that then ) and No Family Hx of Anesthesia Complications History of PONV No Hx of Motion Sickness, History of PONV (one epsidoe in 1988 - no recent issues ) and Hx of Motion Sickness Social History Smoking Status: Never smoker Do You Dip or Chew Tobacco: No Hx Alcohol Use: No Hx Substance Use: No substance use type: does not use Review of Systems Occ palpitations with atrial fibrillation- had episode on 07/21/21- did inform cardio office- took extra Metoprolol- no issues since that time- will contact cardio and PAT if episode occurs again prior to surgery Chronic HENRIQUEZ- stable- did have stress test in 06/2021 - negative Hx of snoring many years ago- no recent issues- no hx of sleep study Patient denies chest pain, shortness of breath at rest, reflux, cough, wheezing, palpitations. No hx of seizures, stroke, MS. No hx of blood clots or blood transfusions Physical Exam Vital Signs VITALS BP 108/67 P 68 TEMP 98.5 SP02 98% RESP 16 Constitutional no acute distress ENMT Mouth: no TMJ clicking Thyromental Distance: > or= 3.5 Finger Breadths (3.5) Mallampati Class: II Missing molars Neck + limited neck extension Respiratory normal respiratory effort; no respiratory distress Auscultation: lungs clear to auscultation bilaterally; no wheezes Cardiovascular Rate/Rhythm: regular rate and regular rhythm Heart Sounds: no murmur Vessels: no carotid bruit Musculoskeletal Spine: no pain with cervical ROM Extremities: extremities normal to inspection Psychiatric Orientation: alert Lab Results Anesthesia Preop Results Results Anesthesia Widget: WBC 8.58 K/uL (4.8-10.8) 07/29/21 Hgb 13.5 g/dL (14.0-18.0) L 07/29/21 Hct 40.1 % (42-52) L 07/29/21 Plt 238 K/uL (130-400) 07/29/21 Na 131 mmol/L (136-145) L 07/29/21 K 4.4 mmol/L (3.5-5.1) 07/29/21 Cl 98 mmol/L (98-107) 07/29/21 CO2 26 mmol/L (21-32) 07/29/21 BUN 28 mg/dl (7-18) H 07/29/21 Creat 1.56 mg/dl (0.6-1.4) H 07/29/21 Glucose Level 94 mg/dl (70-99) 07/29/21 TSH 2.980 uIu/ml (0.300-4.500) 06/16/21 Urine Color Yellow 07/29/21 Urine Appearance Clear (Clear) 07/29/21 Urine pH 5.0 (4.5-7.5) 07/29/21 Urine Specific [place] 1.012 (1.000-1.030) 07/29/21 Urine Protein Negative (Negative) 07/29/21 Urine Glucose (UA) Negative (Negative) 07/29/21 Urine Ketones Negative (Negative) 07/29/21 Urine Blood Negative (Negative) 07/29/21 Urine Nitrite Negative (Negative) 07/29/21 Urine Bilirubin Negative (Negative) 07/29/21 Urine Urobilinogen Negative (Negative) 07/29/21 Urine Leukocyte Esterase Negative (Negative) 07/29/21 Urine WBC (Auto) 1-5 /hpf (0-5) 06/23/21 Urine RBC (Auto) >30 /hpf (0-4) H 06/23/21 Urine Hyaline Casts (Auto) 1-5 /lpf (0-5) 06/23/21 Urine Epithelial Cells (Auto) 10-20 /lpf (0-5) H 06/23/21 Urine Bacteria (Auto) Negative (Negative) 06/23/21 Lab Comments: Hyponatremia stable from 06/2021 (Na was 131 at that time) Creatine stable since 07/2020 Testing Electrocardiogram Date: 07/29/21 Findings: + NSR @ (61bpm) Normal EKG per cardio. Chest X-Ray Date: 07/29/21 Findings: + NAD Postoperative findings within the spine are incidentally noted. No pneumothorax or pleural effusion. Lung volumes are mildly diminished. This is unchanged. Linear bibasilar opacities reflect atelectasis. There is no consolidation or evidence for pulmonary edema. Cardiomediastinal silhouette is stable. Appearance of the chest is unchanged. Stress Test Date: 06/20/21 Type: DSE Resting EF: 60-65% Resting LV Function: normal Resting RWMA: + none Valvular Disease: no significant valvular disease No ischemic changes noted on dobutamine stress echo imaging at 84% MPHR. Nondiagnostic dobutamine EKG for ischemia target heart rate was now obtained. Appropriate BPs response. No arrhythmia. No chest pain reported. Moderate concentric LVH. No significant diastolic dysfunction. No significant change from prior study on 07/08/2018.
[~2021-08-18 08:54] MED LIST changes: -ACETAMINOPHEN 500 MG TAB PO SCH; -CEFAZOLIN 3000MG 72.5 ML IV SCH; -CeleBREX 200 MG CAP PO SCH; -GABAPENTIN 300 MG CAP PO SCH
--- NOTE | 2021-08-18 09:13 | History & Physical Bridge Note ---
Date of Service August 18, 2021 History & Physical Bridge Note I have examined the patient, reviewed the History & Physical and in the interval since the performance of the History & Physical I have noted the following changes of clinical significance: no changes noted
[2021-08-18] MEDS ORDERED: LABETALOL HCL IV 5 MG/ML 20ML IV PRN (09:41)
[2021-08-18] MEDS ORDERED: ePHEDrine sulfate 50 MG/ML AMP IV PRN (09:41)
[2021-08-18] MEDS ORDERED: ONDANSETRON INJ 2 MG/ML 2 ML VIAL IV PRN ×2 (09:41→16:22)
[2021-08-18] MEDS ORDERED: ATROPINE SULFATE 0.1 MG/ML 10ML SYR IV PRN (09:41)
[2021-08-18] MEDS ORDERED: MEPERIDINE HCL 25 MG/ML CARP/VIAL IV PRN (09:41)
[2021-08-18] MEDS ORDERED: PHENYLEPHRINE 100MCG/ML 5ML SYR IV PRN (09:41)
[2021-08-18] MEDS ORDERED: HYDROmorphone INJ 1 MG/ML SYRINGE IV PRN (09:41)
[2021-08-18 10:16] LABS: BUN Creatinine Ratio 16.8 (10-20); Calcium 9.5 mg/dl (8.5-10.1); Est GFR (African American) 51.3 ml/min; Est GFR (Non-African American) 44.3 ml/min; Potassium 4.7 mmol/L (3.5-5.1)
[2021-08-18] MEDS ORDERED: ONDANSETRON INJ 2 MG/ML 2 ML VIAL ONE (10:35)
[2021-08-18] MEDS ORDERED: fentaNYL citrate 100 MCG/2 ML VIAL ONE (10:35)
[2021-08-18] MEDS ORDERED: PROPOFOL IV EMULSION 10 MG/ML 20 ML VIAL IV ONE (10:35)
[2021-08-18] MEDS ORDERED: DEXAMETHASONE SOD INJ 4 MG/ML VIAL ONE (10:35)
[2021-08-18] MEDS ORDERED: MIDAZOLAM HCL 1 MG/ML 2ML VIAL ONE (10:48)
[2021-08-18] MEDS ORDERED: LIDOCAINE 2% 2 ML VIAL/AMP(20MG/ML) INFIL ONE (12:03)
[2021-08-18] MEDS ORDERED: ePHEDrine sulfate 50 MG/ML SYR ONE (12:03)
[2021-08-18] MEDS ORDERED: PHENYLEPHRINE 100MCG/ML 5ML SYR ONE (12:03)
[2021-08-18] MEDS ORDERED: DIATRIZOATE MEGLUMINE 30% 100ML VIAL INSTIL PRN (12:46)
--- NOTE | 2021-08-18 12:51 | Operative Report ---
PG Post Operative Report Pre & Post Diagnosis Operation Date: 08/18/21 10:45 Pre-Op Diagnosis: Bladder Tumor, Benign Prostatic Hyperplasia Post-Op Diagnosis: Bladder Tumor, Benign Prostatic Hyperplasia I identified the patient and participated in the time-out.: Yes Procedure Operation Date: 08/18/21 10:45 Actual Procedures Transurethral Resection Bladder Tumor medium with Left retrograde pyelogram and left Ureteral Stent Transurethral Resection Prostate - Thaddeus Anaya DO Surgeon Thaddeus Anaya, II, DO [place] None Estimated Blood Loss 10 Findings Consistent with Post-Op Diagnosis Large Prostate with obstruction. Tumor on left UO with tumor over opening. Specimens Prostate adenoma. Bladder tumor Drains 22Fr [address] Catheter Anesthesia Type General Complications none Disposition Disposition: Recovery Room Indications Patient with obstruction due to prostate enlargement. Bladder tumor found on cystoscopy. Risks and benefits discussed at length. Description of Procedure Patient was consented and brought back to the operating room. Patient was placed under anesthesia in the supine position and moved to the dorsal lithotomy position. Patient was prepped and draped in the regular sterile fashion. A time out was completed. A 30degree Cystoscope was placed into the bladder and the entire bladder was examined. The UO's were identified as well as the bladder neck, trigone, dome, and the other important landmarks. The prostatic urethra and large lobes/adenoma was assessed and the veru and bladder neck identified and area/size was assessed. The tumor was noted at the left UO. An extremely large median lobe with a moderate lateral lobe enlargement bilaterally. The resection scope was placed and the fine bipolar loop was selected. Starting at the 5 and 7 o'clock positions, a channel was created from bladder neck to the veru. The median lobe was fully resected. With the channel created, resection was taken from the 12 o'clock position down to the channel bilaterally. This was resected to the capsule fibers. The Specimen was removed and sent for analysis. The resection bed and any bleeding areas were fulgurated/cauterized and the entire area inspected. All bleeding was controlled. The lesions and areas of concern were identified and area/size was assessed. The total area was 4.9 cm over the left UO. The resection scope with the fine bipolar loop was selected. The entire lesion was assessed. The lesion was resected. The resected tissue was removed and sent for analysis. The resection bed and edges of the resection were fulgurated and the entire area inspected. All bleeding was controlled. The left UO was cannulized with a catheter and a retrograde pyelogram was completed. A wire was then placed. With the wire in place, a 6 Fr Double J stent was placed. It was confirmed with fluoroscopy. The scope was removed with the bladder partially full. A catheter was placed and balloon elevated. This was easily irrigated. The patient was cleaned, aroused from anesthesia, and transferred to the pacu in stable condition having tolerated the procedure well with no complications. I was present and participated in all aspects of the procedure. The patient will be monitored in the PACU until transferred. Plan to monitor overnight. Will keep catheter 10-14 days. Keep stent for approx 2 weeks and remove in office. Discuss Pathology at that time. . I attest to the content of the Intraoperative Record and any orders documented therein. Any exceptions are noted below.
--- NOTE | 2021-08-18 12:59 | Fluoroscopy Report ---
FL retrograde includes kub HISTORY: 66 years-old Male TURB left ureteral stent placement status post prostate biopsy COMPARISON: CT abdomen and pelvis 06/20/2021 TECHNIQUE: 4 spot fluoroscopic images of the abdomen and pelvis were obtained utilizing 25.7 seconds fluoroscopy time FINDINGS: A left-sided ureteroscope is present. There is retrograde injection of contrast into the left inferio r renal collecting system. No hydronephrosis. Filling defects of the proximal left ureter may be seco ndary to air bubbles. Status post placement of a left ureteral stent which appears to be in satisfact ory positioning. Spinal fusion hardware is partially imaged. IMPRESSION: Fluoroscopic assistance as above. ACT 112: Negative or not required by law. The above report was generated using voice recognition software. It may contain grammatical, syntax o r spelling errors. Electronically signed by: Kike Mari M.D. 08/18/2021 12:57 PM
[2021-08-18] MEDS: fentaNYL citrate 100 MCG/2 ML VIAL IV PRN ×4 (13:05→13:42)
--- NOTE | 2021-08-18 14:01 | Anesthesiology Progress Note ---
Date of Service August 18, 2021 Anesthesia Post Procedure Vital Signs Vital Signs: Temp Pulse Pulse Resp BP Pulse Ox 08/18/21 13:50 36.2 C L 80 18 132/75 93 08/18/21 13:40 36.2 C L 80 16 149/78 H 93 08/18/21 13:30 81 16 130/68 94 08/18/21 13:20 75 22 140/65 95 08/18/21 13:10 81 18 137/61 95 08/18/21 13:00 79 20 134/71 97 08/18/21 12:53 36.0 C L 82 65 19 138/64 95 08/18/21 09:16 36.9 C 65 20 113/68 95 Pain Intensity Penis: Pain Intensity: 2 Transfer of Care Handoff Completed per policy Notes Mental Status: alert / awake / arousable Patient Amnestic to Procedure: Yes Nausea / Vomiting: adequately controlled Pain: adequately controlled Airway Patency, RR, SpO2: stable & adequate BP & HR: stable & adequate Hydration State: stable & adequate Anesthetic Complications: no major complications apparent and Pt Satisfied with anesthetic care
[2021-08-18] MEDS ORDERED: oxyCODONE HCL IR 5 MG TAB (IMMEDIATE RELEASE) PO PRN ×2 (16:22)
[2021-08-18] MEDS ORDERED: ALPRAZolam 0.5 MG TABLET PO PRN (16:22)
[2021-08-18] MEDS ORDERED: ALBUTEROL HFA 8 GM INHALER INH PRN (16:22)
[2021-08-18] MEDS ORDERED: COLCHICINE 0.6 MG TAB PO PRN (16:22)
[2021-08-18] MEDS ORDERED: POLYETHYLENE (MIRALAX) 17 GM PACK PO PRN (16:22)
[2021-08-18] MEDS ORDERED: MoRPHine SULFATE 2 MG/ML CARP IV PRN (16:22)
[2021-08-18 16:59] LABS: Basophils # (auto) 0.01 K/uL (0-0.2); Basophils % (auto) 0.1 %; Hematocrit (blood only) 39.3 % (42-52); Hemoglobin 13.3 g/dL (14.0-18.0); Immature Granulocytes # (auto) 0.01 K/uL (0.00-0.02); Immature Granulocytes % (auto) 0.1 %; Lymphocytes # (auto) 0.44 K/uL (1.2-3.4); Lymphocytes % (auto) 5.7 %; Mean Corpuscular Hemoglobin 29.6 pg (25-34); Mean Corpuscular Volume 87.3 fL (80-100); Mean Platelet Volume 10.8 fL (7.4-10.4); Monocytes # (auto) 0.03 K/uL (0.11-0.59); Monocytes % (auto) 0.4 %; Neutrophils # (auto) 7.21 K/uL (1.4-6.5); Neutrophils % (auto) 93.7 %; Platelet Count 216 K/uL (130-400); RDW Coefficient of Variation 13.9 % (11.5-14.5); RDW Standard Deviation 45.1 fL (36.4-46.3)
[2021-08-18 17:03] LABS: Mean Corpuscular Hgb Conc 33.8 g/dL (32-36)
[2021-08-18 17:21] LABS: BUN Creatinine Ratio 15.4 (10-20); Calcium 9.6 mg/dl (8.5-10.1); Creatinine Clr Calc Pharmacy 57.6 ml/min; Est GFR (African American) 50.9 ml/min; Est GFR (Non-African American) 43.9 ml/min
[2021-08-18] MEDS: busPIRone 15 MG TAB PO SCH ×2 (17:53→20:04)
[2021-08-18] MEDS ORDERED: Influenza Vaccine-High Dose (Fluzone-HD) PF 65+ 0.7 ML SYR IM ONE (19:30)
[2021-08-18] MEDS: ceFAZolin 2000MG 2,000 MG/15 ML SYR IV SCH (20:03)
[2021-08-18] MEDS: DOCUSATE SODIUM 100 MG CAP PO SCH (20:04)
[2021-08-18] MEDS: METOPROLOL SUCC 50MG EXT REL TAB PO SCH (20:05)
[2021-08-18] MEDS: LACTATED RINGER'S 1,000 ML IV SCH (20:17)
[2021-08-18] MEDS ORDERED: TAMSULOSIN HCL 0.4 MG CAP PO SCH (21:00)
[2021-08-18] MEDS ORDERED: ATORVASTATIN 40 MG TAB PO SCH (21:00)
[2021-08-19] MEDS: ceFAZolin 2000MG 2,000 MG/15 ML SYR IV SCH (04:16)
[2021-08-19] MEDS: LACTATED RINGER'S 1,000 ML IV SCH (04:18)
[2021-08-19 06:55] LABS: Eosinophils # (auto) 0.01 K/uL (0-0.5); Eosinophils % (auto) 0.1 %; Hematocrit (blood only) 36.3 % (42-52); Hemoglobin 11.9 g/dL (14.0-18.0); Immature Granulocytes # (auto) 0.03 K/uL (0.00-0.02); Immature Granulocytes % (auto) 0.3 %; Lymphocytes # (auto) 0.67 K/uL (1.2-3.4); Lymphocytes % (auto) 6.8 %; Mean Corpuscular Hemoglobin 29.1 pg (25-34); Mean Corpuscular Hgb Conc 32.8 g/dL (32-36); Mean Corpuscular Volume 88.8 fL (80-100); Mean Platelet Volume 11.1 fL (7.4-10.4); Monocytes # (auto) 0.81 K/uL (0.11-0.59); Monocytes % (auto) 8.2 %; Neutrophils # (auto) 8.33 K/uL (1.4-6.5); Neutrophils % (auto) 84.6 %; Platelet Count 232 K/uL (130-400); RDW Standard Deviation 45.7 fL (36.4-46.3); Red Blood Count 4.09 M/uL (4.7-6.1); White Blood Count 9.85 K/uL (4.8-10.8)
[2021-08-19 07:10] LABS: BUN Creatinine Ratio 14.6 (10-20); Calcium 9.3 mg/dl (8.5-10.1); Creatinine Clr Calc Pharmacy 74.3 ml/min; Est GFR (African American) 69.3 ml/min; Est GFR (Non-African American) 59.8 ml/min; Potassium 4.8 mmol/L (3.5-5.1)
[2021-08-19] MEDS: DOCUSATE SODIUM 100 MG CAP PO SCH (07:46)
[2021-08-19] MEDS: METOPROLOL SUCC 50MG EXT REL TAB PO SCH (07:46)
[2021-08-19] MEDS: busPIRone 15 MG TAB PO SCH ×2 (07:47→13:02)
--- NOTE | 2021-08-19 08:58 | Urology Progress Note ---
Date of Service August 19, 2021 Assessment & Plan (1) Bladder tumor: (2) Benign prostatic hyperplasia with urinary obstruction: Plan: 66 year-old male patient POD#1 TURBT, left retrograde pyelogram, left ureteral stent placement, and TURP with Dr. Anaya. -Clinically progressing as expected. -Patient afebrile. -Labs reviewed - white count and creatinine normal. -Romeo catheter intact with clear yellow urine. CBI clamped at time of assessment. -Maintain romeo catheter. -Plan to advance diet. -Encourage ambulation. -Continue with supportive care and close monitoring. -Plan for home later today presuming he continues to clinically progress. -Expected clinical course reviewed with patient, all questions answered. Admission and Anticipated Discharge Date Admission Date: August 18, 2021 Subjective POD#1 TURBT, left retrograde pyelogram, left ureteral stent placement, and TURP with Dr. Anaya. Patient clinically progressing post procedure. Feeling well overall this AM. Denies flank or abdominal pain. Has not required PRN pain medication since arrival to the floor. Does request his home dose of Tramadol this AM for chronic back pain. Tolerating romeo catheter well without difficulty. Romeo intact, patent with CBI infusing - urine clear yellow. Denies fevers or chills. Denies nausea or vomiting. Has passed flatus. Did get out of bed yesterday evening without nausea or vomiting. Chart review: Afebrile, vital signs stable. Wbc 9.85 Hgb 11.9 Creatinine 1.24 Denies additional urologic concerns today. Review of Systems Constitutional: as per Subjective / HPI; no fever and no chills Respiratory: no problem reported Cardiovascular: no problem reported Gastrointestinal: as per Subjective / HPI; no nausea and no vomiting Genitourinary: + as per Subjective / HPI Physical Exam Constitutional: well developed and well nourished; no acute distress and not ill appearing Respiratory: normal respiratory effort and able to speak in complete sentences; no respiratory distress and no audible wheezes Gastrointestinal (Abdomen): Inspection/Auscultation: abdomen normal to inspection; abdomen not distended Percussion/Palpation: abdomen soft; abdomen nontender and no guarding Psychiatric: Orientation: alert, oriented x 3 and cooperative Affect: euthymic affect Genitourinary: no CVA tenderness Romeo catheter intact and patent. CBI infusing - urine clear yellow. CBI clamped at time of assessment. Results & Data ([facility]) Vital Signs (Past 12 Hours) Vital Signs Temp Pulse Pulse Resp BP Pulse Ox 08/19/21 07:35 36.8 C 61 20 117/69 94 08/18/21 21:27 37.0 C 85 17 119/77 93 PG Care Time/CCT Total # of Minutes Spent Total Time Spent with Patient: Total time spent is greater than 50% in coordination of care (as documented) at patient's floor/unit and/or counseling patient: Coding Level of Care Code None Diagnoses Bladder tumor D49.4 Benign prostatic hyperplasia with urinary obstruction N40.1; N13.8
[2021-08-19] MEDS ORDERED: traMADol HCL 50 MG TABLET PO ONE (08:59)
[2021-08-19] MEDS ORDERED: UMECLIDINIUM BROMIDE 62.5MCG/BLISTER 7 PUFFS/INHALER INH SCH (09:00)
[2021-08-19] MEDS ORDERED: lisinopril 10 MG TAB PO SCH (09:00)
[2021-08-19] MEDS ORDERED: FLUTICASONE/VILANTEROL 200/25MCG 14 PUFFS/INHALER INH SCH (09:00)
--- NOTE | 2021-08-19 14:42 | Discharge Summary ---
Date of Service August 19, 2021 Admission HPI Per Admitting Provider See H&P Admission Exam Per Admitting Provider See H&P Principal Diagnosis Bladder tumor, BPH with urinary retention Discharge Exam Constitutional well developed and well nourished; no acute distress and not ill appearing Respiratory normal respiratory effort and able to speak in complete sentences; no respiratory distress and no audible wheezes Gastrointestinal (Abdomen) Inspection/Auscultation: abdomen normal to inspection; abdomen not distended Percussion/Palpation: abdomen soft; abdomen nontender and no guarding Psychiatric Orientation: alert, oriented x 3 and cooperative Affect: euthymic affect Genitourinary no CVA tenderness Romeo catheter intact draining clear yellow urine. Discharge Data Allergies Allergy/AdvReac Type Severity Reaction Status Date / Time No Known Allergies Allergy Verified 08/18/21 09:23 Procedures Performed Operation Date: 08/18/21 10:45 Actual Procedures p Transurethral Resection Bladder Tumor with Cup Biopsies of the Bladder, (Not Applicable) - Thaddeus Anaya DO s Transurethral Resection Prostate Medium(Not Applicable) - Thaddeus Anaya DO s Left Ureteral Stent(Not Applicable) - Thaddeus Anaya DO Ordered Studies 08/18/21 11:45 FL retrograde includes kub Routine Hospital Course (1) Bladder tumor: (2) Benign prostatic hyperplasia with urinary obstruction: 66 year-old male patient admitted s/p TURBT, left retrograde pyelogram, left ureteral stent placement, and TURP with Dr. Anaya. No complications post procedure. He was seen POD#1, feeling well, clinically progressing. Vital signs and post-op labs appropriate and as expected. Pain controlled, tolerating advanced diet, ambulating without dizziness. Romeo catheter intact and patent, urine draining clear yellow off continuous bladder irrigation. Plan to resume Eliquis tomorrow 08/20, presuming urine is clear. Discharged home in stable condition POD #1, home with romeo catheter. Total Time Total Time Spent Total Time Spent (In Minutes): 15 Discharge Plan Discharge Items Patient Disposition: Home - Self-Care Reason For Visit: Bladder Tumor, Urinary Retention Discharge Diagnosis: Bladder tumor, urinary retention Condition on Discharge: Good Activity: Per Instructions section Lifting: No more than 25 pounds Bathing Comment: No tub baths/soaking, okay to shower tomorrow. Sexual Activity: Wait until after follow-up appointment Exercise/Sports: Wait until after follow-up appointment Driving/Machine Use: Do not drive while taking narcotic pain medication Non-emergency contact: Surgeon and Urologist Call non-emergency contact if: you have any medication questions, your pain is concerning for you and your temperature is above 101 Follow-up/Referrals: Ronak Marie III, CRNP [Primary Care Provider] - Thaddeus Anaya DO [Physician] - 09/03/21 12:50 pm (STENT REMOVAL 09/03/21 @ 12:50 P.M. IF YOU NEED CATH REMOVED BEFORE THIS APPT; PLEASE CALL OFFICE @ [phone]. IF NOT BOTHERING YOU, THEY WILL REMOVE ON 09/03/21 AT 12:50 P.M.) Diet: Regular Addtl Attending Provider Instructions: Please take all medications as prescribed and keep all follow-ups as scheduled. Please call our office at [phone] with any questions, concerns or need to reschedule appointments for any reason. We are happy to assist you. Please resume your Eliquis tomorrow 08/20 if your urine is clear. Tips for your recovery at home: Dont be alarmed by brownish or reddish blood or clots in your urine. This is a result of the procedure. This may occur off and on for weeks to months after the procedure but should continue to improve. Drink plenty of fluids during the day (enough to keep your urine very light colored). This will help keep a healthy flow of urine. Do not lift >25 lbs until your followup Avoid constipation. Please use a stool softener (Colace) for the first two weeks after your procedure Be sure to finish the antibiotics as prescribed. If you go home with a catheter, please wash tubing where it enters your body twice daily with mild soap (Dove or Dial). Once your catheter is removed, expect some blood in your urine and some burning when you urinate. You should have an appointment to have this removed, if you do not please call our office to arrange. When to call [facility] at [phone]: Your urine contains heavy blood clots You are constantly leaking urine Fever of 101F or higher, chills, nausea, or vomiting Your pain is not relieved with medication Pending Studies at Discharge: Yes Studies:: Pathology Stand-Alone Forms: My [facility], Smoking Cessation Medications and DC Order Prescriptions: New cephalexin 500 mg capsule 500 mg PO BID 5 Days Qty: 10 RF: 0 Continued Spiriva Respimat 1.25 mcg/actuation mist 2 puff INHALATION QAM Qty: 4 RF: 4 Breo Ellipta 200-25 mcg/dose blister with device 1 inh INHALATION QAM Qty: 180 RF: 1 alprazolam 0.5 mg tablet 0.5 mg PO DAILY PRN (Reason: Anxiety) Qty: 30 RF: 2 metoprolol succinate 100 mg tablet extended release 24 hr 100 mg PO BID Qty: 180 RF: 3 colchicine 0.6 mg capsule 0.6 mg PO BID PRN (Reason: GOUT FLARE UP) Qty: 30 RF: 0 albuterol sulfate 90 mcg/actuation HFA aerosol inhaler 1 - 2 puffs inhalation Q4H PRN (Reason: shortness of breath) Qty: 1 RF: 0 buspirone 15 mg tablet 15 mg PO TID 90 Days Qty: 270 RF: 1 atorvastatin 40 mg tablet 40 mg PO HS Qty: 90 RF: 3 tamsulosin 0.4 mg capsule 0.4 mg PO HS Qty: 90 RF: 1 lisinopril 10 mg tablet 10 mg PO DAILY Qty: 90 RF: 3 polyethylene glycol 3350 [Miralax] 17 gram/dose Powder 17 g PO DAILY PRN (Reason: Constipation) RF: 0 docusate sodium [Colace] 100 mg Capsule 100 mg PO BID RF: 0 tramadol 50 mg tablet 50 mg PO QAM RF: 0 dutasteride 0.5 mg capsule 0.5 mg PO QDL RF: 0 apixaban 5 mg tablet 5 mg PO BID Qty: 180 RF: 3 Discontinued naproxen 500 mg tablet 500 mg PO DAILY PRN (Reason: Pain) Qty: 90 RF: 1 Discharge Orders: Discharge Order (Routine); Ordered 08/19/21 Ordered By: Michell Mc Admission Data Admit Date/Time: 08/18/21 11:18 Attending Provider: Thaddeus Anaya Admit Provider: Thaddeus Anaya Primary Care Provider: Ronak Marie III Other Interventions: Discharge Summary Assessment (RN) Last Done: 08/19/21 14:14 Coding Level of Care Code D/C DAY MANAGEMENT <30 MINS Diagnoses Bladder tumor D49.4 Benign prostatic hyperplasia with urinary obstruction N40.1; N13.8
== END 2021-08-19 15:58 | disposition home or self-care (01) ==
LOC: ASU 08:54 → PACUINP 08:54 → 3E 16:21

== ENCOUNTER 2021-09-16 15:01 | Observation (INO) ==
[2021-09-16] MEDS ORDERED: SODIUM CHLORIDE 0.9% 1000ML 1,000 ML IV SCH (15:45)
[2021-09-16] MEDS ORDERED: SODIUM CHLORIDE 0.9% 500 ML IV SCH (15:45)
--- NOTE | 2021-09-16 15:49 | Emergency Department Note ---
Impression & Plan Acute hyponatremia ED Provider Note INFORMANT: Patient ED PROVIDER(S): Harpreet Hills MD CHIEF COMPLAINT: Abnormal labs PLAN: Disposition: Admitted Condition: Good Outpatient prescription management: None Referral: None MEDICAL DECISION MAKING: Patient presented to emergency room because of abnormal labs. Blood works obtained. He was found to have hyponatremia. The hyperkalemia noted as an outpatient was no longer present. This may be due to hemolysis on the prior draw. Patient was gently hydrated. ECG did not reveal any acute findings. He will need further management in the hospital due to his hyponatremia. By history he notes he does drink lots of water and has not been eating normally since his surgery. Consultation was made with hospital service. Patient was e valuated in the ER admitted for further management. Triage Nursing notes reviewed and agree them. Vital Signs: reviewed and remarkable for no significant abnormalities Differential diagnosis: dehydration, metabolic abnormality, hypo/hyperglycemia, electrolyte disturbance, Infection,anemia, hypoxia, cardiac sources, intracerebral event, toxicologic, neurologic, as well as other pathologies. Diagnostics interpreted by me: EC Lead ECG performed and revealed Normal sinus rhythym at 85, normal [place], QRS normal. No elevation or depression. No PACs or PVCs Cardiac Monitoring: Cardiac monitoring ordered by me: The patient was placed on continuous cardiac monitoring and observed. It revealed a normal sinus rhythm at 69 beats per minute without ectopy or evidence of dysrhythmia. Imaging studies: Deferred HPI: The patient is a 66 year old male who presents to the Emergency Room with complaints of abnormal labs. This started today and is from outpatients labs. The patient also notes the following associated symptoms, weakness, dizziness, fatigue. low blood pressure. The patient has taken no medication for relieving factors. Current pain is rated as 0/10. Recent bladder and prostate surgery. Appetite has been off. Trying to push fluids. Pt denies LOC, headache, fevers, chills, diaphoresis, visual changes, neck pain, chest pain, breathing difficulties, nausea, vomiting, abdominal pain, back pain, melena, hematochezia, numbness, lymphadenopathy, rash, or other complaints. ROS: See above HPI for pertinent positives & negatives. A total of 10 systems reviewed and were otherwise negative. PAST MEDICAL HISTORY:See Below , HTn, bladder CA PAST SURGICAL HISTORY:See Below, bladder surgery FAMILY HISTORY:See Below SOCIAL HISTORY:See Below, HOME MEDICATIONS:See Below ALLERGIES:See Below VITALS:See Below PHYSICAL EXAMINATION: GENERAL: Awake, alert, well-appearing, in no distress HENT: Normocephalic, atraumatic. Oropharynx unremarkable. EYES: Normal conjunctiva. Sclera non-icteric. NECK: Inspection normal. Non-tender. Supple. No nuchal rigidity. FROM. No masses. RESPIRATORY: Clear to auscultation. No wheezes. No rales. Normal respiratory effort. CARDIAC: Normal rate. Normal rhythm. No murmurs. No rubs. Extremities warm and well perfused. Pulses equal. No JVD. GI: Soft, non-distended. No tenderness to palpation. No rebound or guarding. No masses. RECTAL: Deferred. MUSCULOSKELETAL: Atraumatic. Chest examination reveals no tenderness. The back is symmetrical on inspection without obvious abnormality. There is no CVA tenderness to palpation. No joint edema. LOWER EXTREMITIES: Calves are equal size bilaterally and non-tender. No edema. No discoloration. NEURO: Normal sensorium. No sensory or motor deficits noted. SKIN: No rash or jaundice noted. Harpreet Hills MD Past Med/Surg History Medical History Anxiety and depression Asthma stable > exercise induced > no res inh use Atrial fibrillation Dx 2019> follows with Dr. Quinteros > continues with palpitations- on Metoprolol - per cardio- takes extra Metoprolol and symptoms improve On Eliquis BPH (benign prostatic hyperplasia) CKD (chronic kidney disease), stage III follows [address] Walker Degenerative disc disease Dyslipidemia Gout Recent gout episode x 1-2 days- started with left knee pain- now left toe Will check with surgeon's office to see if he can start on Colchicine - will contact PCP if symptoms continue/get worse Hypertension Insomnia Kidney stones Currently under observation Obesity Osteoarthritis Spinal stenosis Urinary retention Was seen in ER in June 2021- had romeo catheter placed x 1 weeks- no issues since Romeo catheter removed Surgical History History of cardiac catheterization 20 YRS AGO= NO STENTS History of colonoscopy with polypectomy History of fusion of cervical spine ACDF> ROM limited per pt History of lumbar fusion History of shoulder surgery RX2 , LX1 History of total left knee replacement History of total right hip arthroplasty (~10/2016) History of urologic surgery KIDNEY STONE REMOVAL S/P TURP (transurethral resection of prostate) 08/18/21 Dr. Thaddeus Anaya at [facility] S/P ureteral stent placement 08/18/21 Dr. Thaddeus Anaya- L retrograde pyelogram, L ureteral stent Status post lumbar spine operation 08/14/19 Dr. Renan Grullon- Removal of posterior instrumentation L4-5; Exploration of fusion L4-5; Lumbar decompression bilateral medial facetectomies and foraminotomies L2-3 L3-4 L5-S1; Posterior spinal fusion L2- 3 L3-4 L4-5 L5-S1; Placement posterior segmental instrumentation from L2-S1; Interbody fusion L3-4 and L5-S1; Placement of titanium 11 x 26 mm cage at L3- 4 and 12 x 26 mm cage at L5-S1; Placement of locally harvested morselized autograft in the posterior lateral gutters; Placement infuse collagen sponge, master graft in the posterior lateral gutters and ostial amp and interbody space. Family History Father Family history of melanoma Osteoarthritis Hypertension Kidney malignant neoplasm Melanoma Cardiac disorder Myocardial infarction, Onset Age: 30 Mother Family history of colon cancer Denies family history of Ovarian cancer Prostate cancer Breast cancer Colorectal cancer Social History Smoking Status: Never smoker Second Hand Exposure: No; Hx Alcohol Use: No Hx Substance Use: No Preferred Language: Macedonian Communication Ability: Effective Visual Impairment: No Limitations Hearing Ability: Hard of Hearing Market Research Manager Required: No Beliefs That Will Affect Care: None marital status: Current Living Situation: Spouse Current Living Situation Comment: SPOUSE current occupational status: retired 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 Feels Safe at Home: Yes Childhood Exposure to Second-Hand Smoke: No Diet Comment: low added sugars Dental Care, Regularly: No Physical Activity Frequency: Does not Exercise Seatbelt Use: always Sunscreen Use: No Assistive Devices: None Allergies Allergies Allergy/AdvReac Type Severity Reaction Status Date / Time No Known Allergies Allergy Verified 09/16/21 17:04 Home Meds Home Medications Medication Instructions Recorded Confirmed albuterol sulfate 90 mcg/actuation 1 - 2 puffs INHALATION Q4H PRN #1 06/14/19 09/16/21 aerosol inhaler gm docusate sodium 100 mg capsule 100 mg PO BID 07/23/21 09/16/21 (Colace) dutasteride 0.5 mg capsule 0.5 mg PO QDL 07/23/21 09/16/21 tramadol 50 mg tablet 50 mg PO QAM 07/23/21 09/16/21 lisinopril 10 mg tablet 5 mg PO QAM 09/16/21 09/16/21 Previous Rx's Medication Instructions Recorded fluticasone furoate 200 1 inh INHALATION QAM #180 ea 05/12/21 mcg-vilanterol 25 mcg/dose inhalation powder (Breo Ellipta) tiotropium bromide 1.25 2 puff INHALATION QAM #4 gm 05/12/21 mcg/actuation mist for inhalation (Spiriva Respimat) atorvastatin 40 mg tablet 40 mg PO HS #90 tab 06/06/21 buspirone 15 mg tablet 15 mg PO TID 90 Days #270 tab 07/16/21 metoprolol succinate 100 mg 100 mg PO BID #180 tab 08/01/21 tablet,extended release 24 hr colchicine 0.6 mg capsule 0.6 mg PO BID PRN #30 cap 08/04/21 tamsulosin 0.4 mg capsule 0.4 mg PO HS #90 cap 08/04/21 alprazolam 0.5 mg tablet 0.5 mg PO DAILY PRN #30 tab 08/20/21 apixaban 5 mg tablet 5 mg PO BID #180 tab 08/29/21 Results & Data (ED) Vital Signs Vital Signs - 24 hr 09/16/21 15:16 09/16/21 15:33 09/16/21 15:44 Temperature 36 C L Temperature Source Temporal Artery Scan Pulse Rate 106 H 92 H Pulse Rate [Apical] 92 H Pulse Rate from SpO2 Sensor Pulse Rhythm Regular Pulse Rhythm [Apical] Regular Respiratory Rate 18 16 18 Respiratory Effort / Characteristics Non-Labored Non-Labored Spontaneous Respiratory Depth Normal Normal Respiratory Pattern Regular Blood Pressure 135/74 Blood Pressure [Right Arm] 133/90 Blood Pressure Mean 94 Blood Pressure Mean [Right Arm] 104 Blood Pressure Position [Right Arm] Semi-fowlers Pulse Oximetry 96 98 98 Oxygen Delivery Method Room Air Room Air Room Air Sepsis Recent Fever Within 48 Hours No Sepsis New/Unexplained Change in Mental Status No Sepsis Action Taken by Nursing No Action Required 09/16/21 16:02 09/16/21 16:30 09/16/21 17:00 Temperature Temperature Source Pulse Rate 80 79 86 Pulse Rate [Apical] Pulse Rate from SpO2 Sensor 81 79 86 Pulse Rhythm Pulse Rhythm [Apical] Respiratory Rate 15 16 16 Respiratory Effort / Characteristics Respiratory Depth Respiratory Pattern Blood Pressure 125/68 138/69 Blood Pressure [Right Arm] Blood Pressure Mean 87 92 Blood Pressure Mean [Right Arm] Blood Pressure Position [Right Arm] Pulse Oximetry 96 97 95 Oxygen Delivery Method Room Air Room Air Room Air Sepsis Recent Fever Within 48 Hours Sepsis New/Unexplained Change in Mental Status Sepsis Action Taken by Nursing 09/16/21 17:30 09/16/21 17:38 Temperature Temperature Source Pulse Rate 84 Pulse Rate [Apical] 86 Pulse Rate from SpO2 Sensor 85 Pulse Rhythm Pulse Rhythm [Apical] Respiratory Rate 24 16 Respiratory Effort / Characteristics Non-Labored Respiratory Depth Normal Respiratory Pattern Regular Blood Pressure 161/79 H Blood Pressure [Right Arm] 161/79 H Blood Pressure Mean 106 Blood Pressure Mean [Right Arm] 106 Blood Pressure Position [Right Arm] Lying Pulse Oximetry 98 97 Oxygen Delivery Method Room Air Room Air Sepsis Recent Fever Within 48 Hours Sepsis New/Unexplained Change in Mental Status Sepsis Action Taken by Nursing Laboratory Data Result diagrams: 09/16/21 15:44 09/16/21 15:44 Lab Results 09/16/21 09/16/21 09/16/21 Range/Units 15:44 15:44 15:55 WBC 6.60 (4.8-10.8) K/uL RBC 4.07 L (4.7-6.1) M/uL Hgb 12.0 L (14.0-18.0) g/dL Hct 35.3 L (42-52) % MCV 86.7 (80-100) fL MCH 29.5 (25-34) pg MCHC 34.0 (32-36) g/dL RDW Std Deviation 43.1 (36.4-46.3) fL RDW Coeff of Leslie 13.4 (11.5-14.5) % Plt Count 217 (130-400) K/uL MPV 10.2 (7.4-10.4) fL Immature Gran % (Auto) 1.2 % Neut % (Auto) 71.9 % Lymph % (Auto) 16.7 % Morrill % (Auto) 7.4 % Eos % (Auto) 2.6 % Baso % (Auto) 0.2 % Neut # (Auto) 4.75 (1.4-6.5) K/uL Lymph # (Auto) 1.10 L (1.2-3.4) K/uL Morrill # (Auto) 0.49 (0.11-0.59) K/uL Eos # (Auto) 0.17 (0-0.5) K/uL Baso # (Auto) 0.01 (0-0.2) K/uL Immature Gran # (Auto) 0.08 H (0.00-0.02) K/uL Sodium 126 L (136-145) mmol/L Potassium 4.6 D (3.5-5.1) mmol/L Chloride 95 L (98-107) mmol/L Carbon Dioxide 21 (21-32) mmol/L Anion Gap 11.0 (3-11) BUN 14 (7-18) mg/dl Creatinine 1.34 (0.6-1.4) mg/dl Est Cr Clr Drug Dosing 67.2 ml/min Est GFR ( Amer) 63.1 ml/min Est GFR (Non-Af Amer) 54.4 ml/min BUN/Creatinine Ratio 10.2 (10-20) Glucose 134 H (70-99) mg/dl Calcium 9.2 (8.5-10.1) mg/dl Magnesium 2.0 (1.8-2.4) mg/dl Total Bilirubin 0.7 (0.2-1) mg/dl AST 14 L (15-37) U/L ALT 27 (12-78) U/L Alkaline Phosphatase 71 (45-117) U/L Total Protein 7.0 (6.4-8.2) gm/dl Albumin 2.8 L (3.4-5.0) gm/dl Globulin 4.2 H (2.5-4.0) gm/dl Albumin/Globulin Ratio 0.7 L (0.9-2) TSH 1.560 (0.300-4.500) uIu/ml COVID-19 Eval Order Covid19 at [facility] SARS-CoV-2 (PCR) (Negative) 11/09/21 Range/Units 15:55 WBC (4.8-10.8) K/uL RBC (4.7-6.1) M/uL Hgb (14.0-18.0) g/dL Hct (42-52) % MCV (80-100) fL MCH (25-34) pg MCHC (32-36) g/dL RDW Std Deviation (36.4-46.3) fL RDW Coeff of Leslie (11.5-14.5) % Plt Count (130-400) K/uL MPV (7.4-10.4) fL Immature Gran % (Auto) % Neut % (Auto) % Lymph % (Auto) % Morrill % (Auto) % Eos % (Auto) % Baso % (Auto) % Neut # (Auto) (1.4-6.5) K/uL Lymph # (Auto) (1.2-3.4) K/uL Morrill # (Auto) (0.11-0.59) K/uL Eos # (Auto) (0-0.5) K/uL Baso # (Auto) (0-0.2) K/uL Immature Gran # (Auto) (0.00-0.02) K/uL Sodium (136-145) mmol/L Potassium (3.5-5.1) mmol/L Chloride (98-107) mmol/L Carbon Dioxide (21-32) mmol/L Anion Gap (3-11) BUN (7-18) mg/dl Creatinine (0.6-1.4) mg/dl Est Cr Clr Drug Dosing ml/min Est GFR ( Amer) ml/min Est GFR (Non-Af Amer) ml/min BUN/Creatinine Ratio (10-20) Glucose (70-99) mg/dl Calcium (8.5-10.1) mg/dl Magnesium (1.8-2.4) mg/dl Total Bilirubin (0.2-1) mg/dl AST (15-37) U/L ALT (12-78) U/L Alkaline Phosphatase (45-117) U/L Total Protein (6.4-8.2) gm/dl Albumin (3.4-5.0) gm/dl Globulin (2.5-4.0) gm/dl Albumin/Globulin Ratio (0.9-2) TSH (0.300-4.500) uIu/ml COVID-19 Eval Order SARS-CoV-2 (PCR) NEGATIVE (Negative) Administered Medications Alprazolam (Alprazolam 0.5 Mg Tablet) 0.5 mg PO DAILY PRN PRN Reason: Anxiety Stop: 10/16/21 20:32 Last Admin: 09/16/21 22:04 Dose: 0.5 mg Documented by: [id number] Atorvastatin Calcium (Atorvastatin 40 Mg Tab) 40 mg PO HS RADHA Stop: 10/16/21 20:59 Last Admin: 09/16/21 22:05 Dose: 40 mg Documented by: [id number] Buspirone HCl (Buspirone 15 Mg Tab) 15 mg PO TID RADHA Stop: 10/16/21 20:59 Last Admin: 09/16/21 22:04 Dose: 15 mg Documented by: [id number] Colchicine (Colchicine 0.6 Mg Tab) 0.6 mg PO BID RADHA Stop: 10/16/21 20:59 Last Admin: 09/16/21 22:05 Dose: 0.6 mg Documented by: [id number] Docusate Sodium (Docusate Sodium 100 Mg Cap) 100 mg PO BID RADHA Stop: 10/16/21 20:59 Last Admin: 09/16/21 21:47 Dose: Not Given Documented by: [id number] Sodium Chloride (Nss 1000ml) 1,000 mls @ 125 mls/hr IV .Q8H RADHA Stop: 09/16/21 23:44 Last Admin: 09/16/21 16:01 Dose: 125 mls/hr Documented by: [id number] Sodium Chloride (Nss 1000ml) 1,000 mls @ 125 mls/hr IV .Q8H RADHA Stop: 10/16/21 20:32 Last Admin: 09/16/21 22:17 Dose: Not Given Documented by: [id number] Admin: 09/16/21 22:04 Dose: 125 mls/hr Documented by: [id number] Metoprolol Succinate (Metoprolol Succ 50mg Ext Rel Tab) 100 mg PO BID RADHA Stop: 10/16/21 20:59 Last Admin: 09/16/21 21:47 Dose: Not Given Documented by: [id number] Miscellaneous (Dutasteride~Order Awaiting Action) 1 ea N/A QS RADHA Stop: 10/17/21 00:00 Last Admin: 09/16/21 22:18 Dose: Not Given Documented by: [id number] Tamsulosin HCl (Tamsulosin Hcl 0.4 Mg Cap) 0.4 mg PO HS RADHA Stop: 10/16/21 20:59 Last Admin: 09/16/21 22:04 Dose: 0.4 mg Documented by: [id number] Discontinued Medications Apixaban (Apixaban 5 Mg Tablet) 5 mg PO NOW STA Stop: 09/16/21 16:43 Last Admin: 09/16/21 17:48 Dose: 5 mg Documented by: [id number] Sodium Chloride (Nss) 500 mls @ 999 mls/hr IV .Q31M RADHA Stop: 09/16/21 16:15 Last Infusion: 09/16/21 16:57 Dose: 0 mls/hr Documented by: [id number] Admin: 09/16/21 16:00 Dose: 999 mls/hr Documented by: [id number] Metoprolol Succinate (Metoprolol Succ 50mg Ext Rel Tab) 100 mg PO NOW STA Stop: 09/16/21 16:43 Last Admin: 09/16/21 17:48 Dose: 100 mg Documented by: [id number] Discharge Plan Visit Data Chief Complaint: Abnormal Labs/Diagnostic Testing Stated Complaint: ABNORMAL LABS/REFERRED BY DR ED Provider: Harpreet Hills Discharge Problem: Acute hyponatremia Patient Disposition: Admitted As Inpatient Discharge Instructions Interventions: ED Discharge Assessment Last Done: 09/16/21 19:28
[2021-09-16 15:58] LABS: Basophils # (auto) 0.01 K/uL (0-0.2); Basophils % (auto) 0.2 %; Eosinophils # (auto) 0.17 K/uL (0-0.5); Eosinophils % (auto) 2.6 %; Hematocrit (blood only) 35.3 % (42-52); Immature Granulocytes # (auto) 0.08 K/uL (0.00-0.02); Immature Granulocytes % (auto) 1.2 %; Lymphocytes % (auto) 16.7 %; Mean Corpuscular Hemoglobin 29.5 pg (25-34); Mean Corpuscular Volume 86.7 fL (80-100); Mean Platelet Volume 10.2 fL (7.4-10.4); Monocytes # (auto) 0.49 K/uL (0.11-0.59); Monocytes % (auto) 7.4 %; Neutrophils # (auto) 4.75 K/uL (1.4-6.5); Neutrophils % (auto) 71.9 %; Platelet Count 217 K/uL (130-400); RDW Coefficient of Variation 13.4 % (11.5-14.5); RDW Standard Deviation 43.1 fL (36.4-46.3); Red Blood Count 4.07 M/uL (4.7-6.1)
[2021-09-16 16:22] LABS: Albumin Level 2.8 gm/dl (3.4-5.0); BUN Creatinine Ratio 10.2 (10-20); Calcium 9.2 mg/dl (8.5-10.1); Creatinine Clr Calc Pharmacy 67.2 ml/min; Est GFR (African American) 63.1 ml/min; Est GFR (Non-African American) 54.4 ml/min; Potassium 4.6 mmol/L (3.5-5.1)
[2021-09-16 16:30] LABS: Albumin Globulin Ratio 0.7 (0.9-2); Bilirubin,Total 0.7 mg/dl (0.2-1); Globulin 4.2 gm/dl (2.5-4.0); Thyroid Stimulating Hormone 1.56 uIu/ml (0.300-4.500)
[2021-09-16] MEDS ORDERED: METOPROLOL SUCC 50MG EXT REL TAB PO STA (16:42)
[2021-09-16] MEDS ORDERED: APIXABAN 5 MG TABLET PO STA (16:42)
[2021-09-16 17:46] LABS: Appearance Urine Cloudy (Clear); Bilirubin Urine Negative (Negative); Blood Urine 3+ (Negative); Color Urine Yellow; Glucose Urine UA Negative (Negative); Ketones Urine Trace (Negative); Leukocyte Esterase Urine 3+ (Negative); Nitrite Urine Negative (Negative); Protein Urine 1+ (Negative); Specific Gravity Urine 1.005 (1.000-1.030); Urobilinogen Urine Negative (Negative)
--- NOTE | 2021-09-16 17:57 | History & Physical Report ---
Date of Service September 16, 2021 Assessment & Plan (1) Acute hyponatremia: Plan: Probably a mix of low solute intake and a degree of relative polydipsia. Possibly also added effective fluid shifting from corticosteroids. Fortunately not very symptomatic, possibly some of his weakness is symptoms from thisbut also fortunately he is not very far out of the lower limits of normal, so rate of correction cannot over correct. Given that he is likely low solute overall, diet/saline. Repeat basic metabolic panel in the morning. (2) Lightheadedness: Plan: Ongoing, does seem to relate to his blood pressure meds, probably because of all of his weight loss he is needing less and less to control his blood pressure. Hydrochlorothiazide was just stopped, will stop lisinopril. Recommended to get a blood pressure cuff for home. Continue his metoprolol given that he seems to need this to keep the A. fib under control. (3) Hyperkalemia: Plan: Appears to have been a spurious reading, given that his follow-up check was totally normal. Likely hemolysis in the test tube (4) Anemia: Plan: Mild, was to get a colonoscopy recently, had some issues with A. fib during bowel prep, he is working on getting this rescheduled. (5) Gout: Plan: Recent flare appears to be resolving. No need for acute intervention. Continue colchicine as prescribed by PCP. (6) Atrial fibrillation: Plan: Rate controlled, anticoagulated (7) DVT prophylaxis: Plan: Anticoagulated for atrial fibrillation (8) Discharge planning issues: Plan: Observe/MedSurg. DNR/DNI after he has a brief discussion with his wifedi scussed with them that it would be well worth having more formal and detailed discussions together on wishes for the future. History of Present Illness Chief Complaint: Sent for abnormal labs Primary Care Provider: Ronak Marie, DAYANA, APOLINAR Patient is a pleasant 66-year-old male who has had a bit of a rough month. He had bladder surgery/prostate surgery about a month ago, he was home, about 2 to 3 weeks ago he had the worst gout flare that he was ever had in his lifeboth ankles and his left kneereally "crippled" in pain almost bedbound and not really able to get around very well. Initially tried colchicine which did not help a whole lot, then was given prednisone which did help. Now he has mostly recovered although his ankles and knees still feel a bit stiff and painful, but much better than before. He notes about 40 pounds of voluntary weight loss, having made a major change in his diet may be 3 or 4 months ago with eating a lot less simple/refined carbs, watching salt, reading labels, generally trying to eat healthier. He notes during the last few weeks during his gout flare he was even eating less than normal, mostly just fruits and vegetables, and a little bit of chicken, but still drinking probably 60 to 80 ounces or more of water a day. He notes feeling a bit lightheaded with standinghas been going on for a few monthsabout 6 weeks or so ago cardiology dropped hydrochlorothiazide from his medications which helped some but not entirely. He still gets orthostatic lightheadedness with standing Recently his A. fib is under good control, but he notes it wasn't that long ago he had to have his metoprolol increased to 100 mg to improve what sounded to be bursts of tachycardia He notes a lot of fatigue over the last month may be a little bit longer Allergies Allergy/AdvReac Type Severity Reaction Status Date / Time No Known Allergies Allergy Verified 09/16/21 17:04 Home Medications Medication Instructions Recorded Confirmed Type albuterol sulfate 90 mcg/actuation 1 - 2 puffs INHALATION Q4H PRN #1 06/14/19 09/16/21 History aerosol inhaler gm fluticasone furoate 200 1 inh INHALATION QAM #180 ea 05/12/21 09/16/21 Rx mcg-vilanterol 25 mcg/dose inhalation powder (Breo Ellipta) tiotropium bromide 1.25 2 puff INHALATION QAM #4 gm 05/12/21 09/16/21 Rx mcg/actuation mist for inhalation (Spiriva Respimat) atorvastatin 40 mg tablet 40 mg PO HS #90 tab 06/06/21 09/16/21 Rx buspirone 15 mg tablet 15 mg PO TID 90 Days #270 tab 07/16/21 09/16/21 Rx docusate sodium 100 mg capsule 100 mg PO BID 07/23/21 09/16/21 History (Colace) dutasteride 0.5 mg capsule 0.5 mg PO QDL 07/23/21 09/16/21 History tramadol 50 mg tablet 50 mg PO QAM 07/23/21 09/16/21 History metoprolol succinate 100 mg 100 mg PO BID #180 tab 08/01/21 09/16/21 Rx tablet,extended release 24 hr colchicine 0.6 mg capsule 0.6 mg PO BID PRN #30 cap 08/04/21 09/16/21 Rx tamsulosin 0.4 mg capsule 0.4 mg PO HS #90 cap 08/04/21 09/16/21 Rx alprazolam 0.5 mg tablet 0.5 mg PO DAILY PRN #30 tab 08/20/21 09/16/21 Rx apixaban 5 mg tablet 5 mg PO BID #180 tab 08/29/21 09/16/21 Rx lisinopril 10 mg tablet 5 mg PO QAM 09/16/21 09/16/21 History Past Med/Surg History Medical History Anxiety and depression Asthma stable > exercise induced > no res inh use Atrial fibrillation Dx 2018> follows with Dr. Quinteros > continues with palpitations- on Metoprolol - per cardio- takes extra Metoprolol and symptoms improve On Eliquis BPH (benign prostatic hyperplasia) CKD (chronic kidney disease), stage [address] Walker Degenerative disc disease Dyslipidemia Gout Recent gout episode x 1-2 days- started with left knee pain- now left toe Will check with surgeon's office to see if he can start on Colchicine - will contact PCP if symptoms continue/get worse Hypertension Insomnia Kidney stones Currently under observation Obesity Osteoarthritis Spinal stenosis Urinary retention Was seen in ER in June 2021- had romeo catheter placed x 1 weeks- no issues since Romeo catheter removed Surgical History History of cardiac catheterization 20 YRS AGO= NO STENTS History of colonoscopy with polypectomy History of fusion of cervical spine ACDF> ROM limited per pt History of lumbar fusion History of shoulder surgery RX2 , LX1 History of total left knee replacement History of total right hip arthroplasty (~10/2016) History of urologic surgery KIDNEY STONE REMOVAL S/P TURP (transurethral resection of prostate) 08/18/21 Dr. Thaddeus Anaya at [facility] S/P ureteral stent placement 08/18/21 Dr. Thaddeus Anaya- L retrograde pyelogram, L ureteral stent Status post lumbar spine operation 08/14/19 Dr. Renan Grullon- Removal of posterior instrumentation L4-5; Exploration of fusion L4-5; Lumbar decompression bilateral medial facetectomies and foraminotomies L2-3 L3-4 L5-S1; Posterior spinal fusion L2- 3 L3-4 L4-5 L5-S1; Placement posterior segmental instrumentation from L2-S1; Interbody fusion L3-4 and L5-S1; Placement of titanium 11 x 26 mm cage at L3- 4 and 12 x 26 mm cage at L5-S1; Placement of locally harvested morselized autograft in the posterior lateral gutters; Placement infuse collagen sponge, master graft in the posterior lateral gutters and ostial amp and interbody space. 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: No Beliefs That Will Affect Care: None marital status: Current Living Situation: Spouse Current Living Situation Comment: SPOUSE current occupational status: retired 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 HEENT normocephalic atraumatic mucous membranes moist. Cardio is regular without rubs murmurs or gallops. Lungs clear to auscultation bilaterally no rales rhonchi or wheeze with good effort. Abdomen is soft nondistended nontender no masses organomegaly. Extremities without cyanosis clubbing or edema no calf tenderness. No joint effusions, although joint spaces do feel smaller with mild degree of passive crepitus. Neuro shows cranial nerves II through XII be grossly intact gross motor and sensory are intact, no focal deficits. Skin shows no rashes, no pallor, no icterus. Mental status shows good recent and remote recall normal mood and affect good judgment and insight Results & Data Results & Data ([facility]) Vital Signs (Past 12 Hours) Vital Signs Temp Pulse Pulse Resp BP BP Pulse Ox 09/16/21 17:38 86 16 161/79 H 97 09/16/21 15:44 92 H 18 98 09/16/21 15:33 92 H 16 133/90 98 09/16/21 15:16 96.8 F L 106 H 18 135/74 96 Code Status & VTE Plan VTE Prophylaxis Plan VTE Prophylaxis will be ordered: No PG Care Time/CCT Total # of Minutes Spent Total Time Spent with Patient: Total time spent is greater than 50% in coordination of care (as documented) at patient's floor/unit and/or counseling patient: Coding Level of Care Code INT OBSERVATION CARE 70M LVL 3 Diagnoses Acute hyponatremia E87.1 Lightheadedness R42 Hyperkalemia E87.5 Anemia D64.9 Atrial fibrillation I48.91 Atrial fibrillation type: unspecified DVT prophylaxis Z29.9 Discharge planning issues Z02.9 Gout M10.9 (1) Atrial fibrillation Atrial fibrillation type: unspecified Qualified Code(s): I48.91 - Unspecified atrial fibrillation
[2021-09-16 18:31] LABS: RBC Urine Automated 0-4 /hpf (0-4); WBC Urine Automated >30 /hpf (0-5)
[2021-09-16 18:32] LABS: Cast Urine Automated 0 /lpf (0-5)
[2021-09-16 18:34] LABS: Bacteria Urine Automated 2+ (Negative)
[2021-09-16] MEDS ORDERED: ALUMINUM/MAGNESIUM SUSP 30 ML UDC PO PRN (20:33)
[2021-09-16] MEDS ORDERED: MAGNESIUM HYDROXIDE SUSP 30 ML UDC PO PRN (20:33)
[2021-09-16] MEDS ORDERED: ALPRAZolam 0.5 MG TABLET PO PRN (20:33)
[2021-09-16] MEDS ORDERED: ONDANSETRON INJ 2 MG/ML 2 ML VIAL IV PRN (20:33)
[2021-09-16] MEDS ORDERED: ACETAMINOPHEN 325 MG TAB PO PRN (20:33)
[2021-09-16] MEDS ORDERED: POLYETHYLENE (MIRALAX) 17 GM PACK PO PRN (20:33)
[2021-09-16] MEDS ORDERED: ALBUTEROL HFA 8 GM INHALER INH PRN (20:33)
[2021-09-16] MEDS ORDERED: ATORVASTATIN 40 MG TAB PO SCH (21:00)
[2021-09-16] MEDS ORDERED: TAMSULOSIN HCL 0.4 MG CAP PO SCH (21:00)
[2021-09-16] MEDS: DOCUSATE SODIUM 100 MG CAP PO SCH (21:47)
[2021-09-16] MEDS: METOPROLOL SUCC 50MG EXT REL TAB PO SCH (21:47)
[2021-09-16] MEDS: busPIRone 15 MG TAB PO SCH (22:04)
[2021-09-16] MEDS: SODIUM CHLORIDE 0.9% 1000ML 1,000 ML IV SCH ×2 (22:04→22:17)
[2021-09-16] MEDS: COLCHICINE 0.6 MG TAB PO SCH (22:05)
[2021-09-17] MEDS: SODIUM CHLORIDE 0.9% 1000ML 1,000 ML IV SCH (05:26)
[2021-09-17 07:24] LABS: BUN Creatinine Ratio 9.6 (10-20); Calcium 8.9 mg/dl (8.5-10.1); Creatinine Clr Calc Pharmacy 85.8 ml/min; Est GFR (African American) 84.7 ml/min; Est GFR (Non-African American) 73.1 ml/min; Potassium 5.2 mmol/L (3.5-5.1)
[2021-09-17] MEDS: COLCHICINE 0.6 MG TAB PO SCH (07:59)
[2021-09-17] MEDS: DOCUSATE SODIUM 100 MG CAP PO SCH (07:59)
[2021-09-17] MEDS: METOPROLOL SUCC 50MG EXT REL TAB PO SCH (08:00)
[2021-09-17] MEDS: busPIRone 15 MG TAB PO SCH ×2 (08:00→12:51)
[2021-09-17 08:13] LABS: Estimated Average Glucose 128 mg/dl; Hemoglobin A1C 6.1 % (4.5-5.6)
[2021-09-17] MEDS ORDERED: Influenza Vaccine-High Dose (Fluzone-HD) PF 65+ 0.7 ML SYR IM ONE (08:30)
[2021-09-17] MEDS ORDERED: UMECLIDINIUM BROMIDE 62.5MCG/BLISTER 7 PUFFS/INHALER INH SCH (09:00)
[2021-09-17] MEDS ORDERED: FLUTICASONE/VILANTEROL 200/25MCG 14 PUFFS/INHALER INH SCH (09:00)
[2021-09-17] MEDS ORDERED: APIXABAN 5 MG TABLET PO SCH (09:00)
--- NOTE | 2021-09-17 13:26 | Electrocardiogram Report ---
Test Reason : Blood Pressure : / mmHG Vent. Rate : 085 BPM Atrial Rate : 085 BPM P-R Int : 152 ms QRS Dur : 098 ms QT Int : 362 ms P-R-T Axes : 016 -02 022 degrees QTc Int : 430 ms Normal sinus rhythm Normal ECG When compared with ECG of 29-JUL-2021 13:39, No significant change was found Confirmed by Joseph Negron ([id number]) on 09/17/2021 1:25:48 PM Referred By: Ronak Marie Confirmed By:Joseph Negron
--- NOTE | 2021-09-17 19:15 | Discharge Summary ---
Date of Service September 17, 2021 Admission HPI Per Admitting Provider Patient is a pleasant 66-year-old male who has had a bit of a rough month. He had bladder surgery/prostate surgery about a month ago, he was home, about 2 to 3 weeks ago he had the worst gout flare that he was ever had in his lifeboth ankles and his left kneereally "crippled" in pain almost bedbound and not really able to get around very well. Initially tried colchicine which did not help a whole lot, then was given prednisone which did help. Now he has mostly recovered although his ankles and knees still feel a bit stiff and painful, but much better than before. He notes about 40 pounds of voluntary weight loss, having made a major change in his diet may be 3 or 4 months ago with eating a lot less simple/refined carbs, watching salt, reading labels, generally trying to eat healthier. He notes duri ng the last few weeks during his gout flare he was even eating less than normal, mostly just fruits and vegetables, and a little bit of chicken, but still drinking probably 60 to 80 ounces or more of water a day. He notes feeling a bit lightheaded with standinghas been going on for a few monthsabout 6 weeks or so ago cardiology dropped hydrochlorothiazide from his medications which helped some but not entirely. He still gets orthostatic lightheadedness with standing Recently his A. fib is under good control, but he notes it wasn't that long ago he had to have his metoprolol increased to 100 mg to improve what sounded to be bursts of tachycardia He notes a lot of fatigue over the last month may be a little bit longer Principal Diagnosis Hyponatremia Discharge Exam gen aaox3 pleasant nad heent nc at mmm breathing unlabored no accessory muscles good effort skin no rashes no pallor or icterus neuro no focal deficits Discharge Data Allergies Allergy/AdvReac Type Severity Reaction Status Date / Time No Known Allergies Allergy Verified 09/16/21 17:04 Consultations 09/16/21 16:45 ED Decision to Admit Stat Hospital Course (1) Acute hyponatremia: Probably a mix of low solute intake and a degree of relative polydipsia. Possibly also added effective fluid shifting from corticosteroids. Fortunately not very symptomatic, possibly some of his weakness is symptoms from thisimproved and stable for home (2) Lightheadedness: Ongoing, does seem to relate to his blood pressure meds, probably because of all of his weight loss he is needing less and less to control his blood pressure. Hydrochlorothiazide was just stopped, will stop lisinopril. Recommended to get a blood pressure cuff for home. Continue his metoprolol given that he seems to need this to keep the A. fib under control - but may also be able to reduce metoprolol over time. (3) Hyperkalemia: highest reading appears to have been a spurious reading, given that his follow-up check was totally normal. now 5.2 -- no clear med/diet/renal culprit - ?just runs high end of normal. stable for home -- BMP ~2 days (4) Anemia: Mild, was to get a colonoscopy recently, had some issues with A. fib during bowel prep, he is working on getting this rescheduled. (5) Gout: Recent flare appears to be resolving. No need for acute intervention. Continue colchicine as prescribed by PCP. (6) Atrial fibrillation: Rate controlled, anticoagulated - see above, with his weight loss would not be surprised if his metoprolol gets slowly titrated down over time as well (7) DVT prophylaxis: Anticoagulated for atrial fibrillation (8) Discharge planning issues: stable for home, BMP ~2 days. PCP f/u, cardiology f/u. Total Time Total Time Spent Total Time Spent (In Minutes): >30 Discharge Plan Discharge Items Patient Disposition: Home - Self-Care Reason For Visit: ongoing care Discharge Diagnosis: see below Activity: Resume your previous activity Non-emergency contact: Primary Care Provider and Joint Cutter Machine Call non-emergency contact if: you have any medication questions and your symptoms worsen Follow-up/Referrals: Dinesh Marie III, CRNP [Primary Care Provider] - 09/19/21 10:20 am Diet: Regular Addtl Attending Provider Instructions: low sodium - likely was from really restricting your diet when you were so laid up with the gout, while at the same time still drinking lots of water to stay well hydrated. now that you're over the gout flare (mostly) and back to your regular diet, i do not believe this will be an ongoing issue high potassium - while i suspect the highest levels were probably spurious, the overall "law of averages" suggests you probably run near the high end of normal. we'll have you get labwork rechecked in a few days just to check on things and confirm the overall trend weak/lightheaded/dizzy -while the month you've been through with the urologic surgery, bad gout flare, and so on will definitely account for a lot of how you were feeling over the last 6wks -- prior to that i'm really suspicious that with all the weight you've lost, you're probably "working your way off" of your blood pressure medicines -for now - we'll have you only taking the metoprolol - so a month or so ago they stopped the HCTZ, now we'll stop the lisinopril -get an automated arm blood pressure cuff and check a few times a day - randomly (sometimes when you're feeling good, sometimes when you're feeling lousy, and everything in between) -- since blood pressure is more of a range than a number -- that will give you an overall idea of how you're running -more than needing to add medications back on, my bigger suspicion is that we might even be able to slowly knock down the metoprolol (because while it's biggest "claim to fame" for you would be controlling the rate of the afib, it also does bring pressures down some) -- because of that, also keep tabs on what your heart rates have been running so that they can know if there's "wiggle room" to drop the metoprolol without letting the afib start to lose control -it's also less likely but possible the flomax (tamsulosin) could be causing some lightheadedness -- if everything else has been adjusted down, your blood pressures are good, and you're still feeling lightheaded, then we would need to consider tamsulosin as a culprit back pain -as we discussed, likely a combination of things, but the biggest thing driving the pain now is probably biomechanical. light cardiovascular exercise will improve blood flow, and if needed dinesh can refer you in the same office to dr braun, who does a lot of manipulative medicine (OMT) that can also be really helpful at alleviating a lot of the biomechanical part of the pain easy fatigue -most likely ties to all of the above, and if your blood pressures arent on the low end anymore, and you give yourself time to recover from everything you've just been through, it's likely that you'll be able to gradually increase your exercise tolerance/ability -if you can't, then we would need to work it up further, but i would expect that given time, you'll likely start to see the improvement you're looking for Pending Studies at Discharge: No Stand-Alone Forms: My [facility], Smoking Cessation Medications and DC Order Prescriptions: Continued Spiriva Respimat 1.25 mcg/actuation mist 2 puff INHALATION QAM Qty: 4 RF: 4 Breo Ellipta 200-25 mcg/dose blister with device 1 inh INHALATION QAM Qty: 180 RF: 1 metoprolol succinate 100 mg tablet extended release 24 hr 100 mg PO BID Qty: 180 RF: 3 colchicine 0.6 mg capsule 0.6 mg PO BID PRN (Reason: GOUT FLARE UP) Qty: 30 RF: 0 apixaban 5 mg tablet 5 mg PO BID Qty: 180 RF: 3 albuterol sulfate 90 mcg/actuation HFA aerosol inhaler 1 - 2 puffs inhalation Q4H PRN (Reason: shortness of breath) Qty: 1 RF: 0 buspirone 15 mg tablet 15 mg PO TID 90 Days Qty: 270 RF: 1 atorvastatin 40 mg tablet 40 mg PO HS Qty: 90 RF: 3 tamsulosin 0.4 mg capsule 0.4 mg PO HS Qty: 90 RF: 1 alprazolam 0.5 mg tablet 0.5 mg PO DAILY PRN (Reason: Anxiety) Qty: 30 RF: 2 docusate sodium [Colace] 100 mg Capsule 100 mg PO BID RF: 0 tramadol 50 mg tablet 50 mg PO QAM RF: 0 dutasteride 0.5 mg capsule 0.5 mg PO QDL RF: 0 Discontinued lisinopril 10 mg tablet 5 mg PO QAM RF: 0 Discharge Orders: Discharge Order (Routine); Ordered 09/17/21 Ordered By: Brock Paz/Other Patient Handouts: A1C, Prediabetes, 5 Steps for Eating Healthier Admission Data Admit Date/Time: 09/16/21 17:55 Attending Provider: Brock Garcia Admit Provider: Brock Garcia Primary Care Provider: Dinesh Marie III Other Providers: Valente Sandhu Other Interventions: Discharge Summary Assessment (RN) Last Done: 09/17/21 13:38 Coding Level of Care Code 52778 OBS Care - Discharge Diagnoses Acute hyponatremia E87.1 Lightheadedness R42 Hyperkalemia E87.5 Anemia D64.9 Gout M10.9 Atrial fibrillation I48.91 Atrial fibrillation type: unspecified DVT prophylaxis Z29.9 Discharge planning issues Z02.9
== END 2021-09-17 14:01 | disposition home or self-care (01) ==
LOC: ED 15:01 → 3N 15:01

== ENCOUNTER 2024-08-23 14:48 | Inpatient (IN) ==
[2024-08-23 15:31] LABS: Basophils # (auto) 0.03 K/uL (0.00-0.20); Basophils % (auto) 0.2 %; Eosinophils # (auto) 0.06 K/uL (0.00-0.50); Eosinophils % (auto) 0.4 %; Hematocrit (blood only) 46.2 % (42.0-52.0); Hemoglobin 15.2 g/dl (14.0-18.0); Immature Granulocytes # (auto) 0.06 K/uL (0.01-0.20); Immature Granulocytes % (auto) 0.4 %; Lymphocytes # (auto) 0.43 K/uL (1.20-3.40); Lymphocytes % (auto) 2.9 %; Mean Corpuscular Hemoglobin 28.7 pg (25.0-34.0); Mean Corpuscular Hgb Conc 32.9 g/dL (32.0-36.0); Mean Corpuscular Volume 87.3 fL (80.0-100.0); Monocytes # (auto) 0.96 K/uL (0.11-0.59); Monocytes % (auto) 6.4 %; Neutrophils # (auto) 13.36 K/uL (1.40-6.50); Neutrophils % (auto) 89.7 %; Platelet Count 173 K/uL (130-400); RDW Coefficient of Variation 12.9 % (11.5-14.5); RDW Standard Deviation 40.6 fL (36.4-46.3); Red Blood Count 5.29 M/uL (4.70-6.10)
[2024-08-23 15:47] LABS: Alanine Aminotransferase 19 U/L (7-52); Albumin Globulin Ratio 1.5 (0.9-2); Albumin Level 4.5 gm/dl (3.4-5.0); Alkaline Phosphatase 54 U/L (34-104); Anion Gap 8 (3-11); Aspartate Aminotransferase 20 U/L (13-39); BUN Creatinine Ratio 12.3 (10-20); Bilirubin,Total 0.8 mg/dl (0.2-1.0); Blood Urea Nitrogen 18 mg/dl (6-23); Calcium 10.2 mg/dl (8.6-10.3); Carbon Dioxide 27 mmol/L (21-32); Chloride 99 mmol/L (98-107); Glucose 129 mg/dl (70-99(Fasting)); Potassium 4.9 mmol/L (3.5-5.1); Sodium 134 mmol/L (136-145); Total Protein 7.5 gm/dl (6.0-8.3)
--- NOTE | 2024-08-23 16:31 | Emergency Department Note ---
History of Present Illness General Chief complaint: Flank Pain Stated complaint: SEVERE KIDNEY PAIN, BLADDER/TESTICULAR PAIN Time Seen by Provider: 08/23/24 16:12 Source: patient, family ( was at the bedside), RN notes reviewed and old records reviewed (08/22/24-urology notes for cystoscopy) Mode of arrival: ambulatory Limitations: no limitations History of Present Illness Maximum Pain Intensity: 10 This patient is a 69-year-old male who comes in with right flank pain. He had a cystoscopy yesterday he does have history of bladder cancer and he tells me that his urethra got damaged at 1 point as well. He had just to follow-up cystoscopy yesterday done by Dr. Anaya. He said everything looked clean and there were no problems during the procedure. There is no intervention. Said last night around 930 he started having pain in his lower bladder testicle and extending to the right kidney. He saw urology today in the office and just had a nurse visit they took a urine sample and started him on Cipro they also did a bladder scan and said he was not retaining. He went home but had increasing pain so came here he did try Pyridium which turned his urine orange as well as tramadol which she takes daily. He feels like his temperature started to creep up as well he had a temperature of 100.4 orally at home and a little bit of chills no dysuria he was able to urinate a large amount here. He has had some nausea with the pain and some shortness of breath earlier with the pain but none now no chest pain he did have some diarrhea yesterday. He is on blood thinners with Eliquis which has been taking he is had no evidence of A-fib he monitors himself with a watch Home Medications Medication Instructions Recorded Confirmed Type dutasteride 0.5 mg capsule 0.5 mg PO QPM #90 caps 11/16/23 08/23/24 Rx (Avodart) lisinopril 40 mg tablet 40 mg PO QAM #90 tabs 12/22/23 08/23/24 Rx sodium bicarbonate 650 mg tablet 1,300 mg PO DAILY PRN SEE BELOW 01/24/24 08/23/24 History tamsulosin 0.4 mg capsule 0.4 mg PO HS #90 caps 01/31/24 08/23/24 Rx metoprolol succinate 100 mg 150 mg (1.5 x 100 mg) PO BID #270 03/27/24 08/23/24 Rx tablet,extended release 24 hr tabs amlodipine 2.5 mg tablet 2.5 mg PO DAILY #90 tabs 05/08/24 08/23/24 Rx gabapentin 300 mg capsule 300 mg PO HS #30 caps 05/28/24 08/23/24 Rx buspirone 15 mg tablet 15 mg PO BID #180 tabs 07/03/24 08/23/24 Rx colchicine 0.6 mg tablet 0.6 mg PO BID PRN gout 07/16/24 08/23/24 History alprazolam 0.5 mg tablet (Xanax) 0.5 mg PO QAM PRN Anxiety #30 tabs 07/17/24 08/23/24 Rx apixaban 5 mg tablet (Eliquis) 5 mg PO BID #180 tabs 08/14/24 08/23/24 Rx baclofen 10 mg tablet 10 mg PO TID PRN muscle spasm #270 08/18/24 08/23/24 Rx tabs tramadol 50 mg tablet 50 mg PO BID PRN pain #60 tabs 08/21/24 08/23/24 Rx diltiazem HCl 120 mg 120 mg PO UD 08/23/24 08/23/24 History capsule,extended release 24 hr, controlled Allergies Allergy/AdvReac Type Severity Reaction Status Date / Time atorvastatin AdvReac Intermediate Joint Pain Verified 07/24/24 13:49 Past Med/Surg History Problem List (Updated 08/23/24 @ 22:46 by Brian Hernandez MD) Acute UTI (urinary tract infection) (Acute) Hydronephrosis (Acute) Renal colic on right side (Acute) BARB (acute kidney injury) Status post cystoscopy (Acute) rn long term care (current) use of 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/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 (Acute) Acute right flank pain (Acute) Bladder cancer s/p BCG treatment Right testicular pain Hyperkalemia Lightheadedness Obesity Atypical chest pain entered into EMR 06/06/21-unable to verify with patient; to chart review 06/20/21 underwent dobutamine stress echo which was below target HR at 84% MPHR-no ischemic changes; cleared for surgery 07/2021 by cardiology Microscopic hematuria Benign prostatic hyperplasia with urinary obstruction Kidney stones Dyslipidemia Paroxysmal atrial fibrillation CKD (chronic kidney disease), stage III Anemia Gout Dry eyes HTN (hypertension) (Acute) Spinal stenosis, lumbar region with neurogenic claudication Insomnia Heart disease (Chronic) Extrinsic asthma Depression Chronic asthmatic bronchitis Back pain, chronic BPH (benign prostatic hyperplasia) (Acute) Anxiety Allergic rhinitis Medical History Allergic rhinitis Chronic back pain Heart disease History of anemia Dyslipidemia Environmental and seasonal allergies Bladder cancer (2022) s/p BCG treatment completed chemo 11/2023 Nausea and vomiting after administration of anesthetic agent 35 yr ago but many surgeries since without issues Urinary retention Was seen in ER in June 2021- had romeo catheter placed x 1 weeks- no issues since Romeo catheter removed CKD (chronic kidney disease), stage III follows [address] Anaya BPH (benign prostatic hyperplasia) Gout Recent gout episode x 1-2 days- started with left knee pain- now left toe Will check with surgeon's office to see if he can start on Colchicine - will contact PCP if symptoms continue/get worse Atrial fibrillation Dx 2018> follows with Dr. Quinteros > continues with palpitations- on Metoprolol - per cardio- takes extra Metoprolol and symptoms improve On Eliquis Kidney stones Currently under observation Degenerative disc disease Spinal stenosis Anxiety and depression Asthma stable > exercise induced > no res inh use Hypertension Surgical History History of bronchoscopy S/P epidural steroid injection S/P cystoscopy w/ bx and cauterization of re-emerging tumors in bladder "found to be benign" S/P ureteral stent placement 08/18/21 Dr. Thaddeus Anaya- L retrograde pyelogram, L ureteral stent S/P TURP (transurethral resection of prostate) 08/18/21 Dr. Thaddeus Anaya at [facility]; also removed malignant bladder tumors at the same time History of cardiac catheterization 20 YRS AGO= NO STENTS; done in [place] History of colonoscopy with polypectomy History of shoulder surgery R X2 , L X1 History of total left knee replacement History of total right hip arthroplasty (~10/2016) History of fusion of cervical spine C4-C5 ACDF> ROM limited per pt History of lumbar fusion L2-S1 HDW 08/14/19 Dr. Renan Grullon- Removal of posterior instrumentation L4-5; Exploration of fusion L4-5; Lumbar decompression bilateral medial facetectomies and foraminotomies L2-3 L3-4 L5-S1; Posterior spinal fusion L2- 3 L3-4 L4-5 L5-S1; Placement posterior segmental instrumentation from L2-S1; Interbody fusion L3-4 and L5-S1; Placement of titanium 11 x 26 mm cage at L3- 4 and 12 x 26 mm cage at L5-S1; Placement of locally harvested morselized autograft in the posterior lateral gutters; Placement infuse collagen sponge, master graft in the posterior lateral gutters and ostial amp and interbody space. History of urologic surgery KIDNEY STONE REMOVAL Family History Father Family history of melanoma Osteoarthritis Hypertension Kidney malignant neoplasm Melanoma Cardiac disorder Myocardial infarction, Onset Age: 30 Mother Family history of colon cancer Denies family history of Ovarian cancer Prostate cancer Breast cancer Colorectal cancer Social History Smoking Status: Never smoker Second Hand Exposure: No; Do You Dip or Chew Tobacco: No; Hx Alcohol Use: No Hx Substance Use: No Preferred Language: Liberian Communication Ability: Effective Visual Impairment: No Limitations Hearing Ability: Hard of Hearing 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 [employer] Systems Required: No Beliefs That Will Affect Care: None marital status: Current Living Situation: Spouse Current Living Situation Comment: [facility]OUSE current occupational status: retired 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 How many Children do You have: 0 Feels Safe at Home: Yes Childhood Exposure to Second-Hand Smoke: Yes Diet: low carbohydrate and regular Diet Comment: low added sugars caffeine: Yes Dental Care, Regularly: No Physical Activity Frequency: Daily Physical Activity Frequency Comment: walks 3 times a day Seatbelt Use: always Sunscreen Use: Yes Assistive Devices: Glasses Review of Systems A total of 10 systems reviewed and were otherwise negative Physical Exam Vital Signs Vital Signs - 24 hr 08/23/24 15:09 08/23/24 16:14 08/23/24 17:00 Temperature 37.1 C Temperature Source Temporal Artery Scan Pulse Rate 84 77 Pulse Rate [Finger] 75 Respiratory Rate 18 20 Respiratory Effort / Characteristics Non-Labored Spontaneous Respiratory Depth Normal Blood Pressure 160/80 H Blood Pressure [Right Arm] 191/84 H Blood Pressure Mean 106 Blood Pressure Mean [Right Arm] 119 Blood Pressure Position Sitting Pulse Oximetry 95 92 Oxygen Delivery Method Room Air Room Air Sepsis Recent Fever Within 48 Hours No Sepsis New/Unexplained Change in Mental Status No Sepsis Action Taken by Nursing No Action Required General: Well developed well nourished older male who appears in no acute distress, breathing comfortably on room air. Normal speech HEENT: Normal cephalic atraumatic. Pupils are equal round and reactive to light. Extraocular movements are intact. Oropharynx is pink with moist mucous membranes. No swelling of the mouth lips or tongue. Neck: Supple with a midline trachea. No meningeal signs or stiffness, no JVD or bruits. No Stridor. Chest: Clear to auscultation bilaterally. No wheezes or rhonchi. No increased work of breathing. Heart: Regular rate and rhythm without murmurs or gallops. Abdomen: Soft nontender, nondistended without rebound guarding or rigidity. GUno testicular swelling or redness no masses. No evidence of hernia. Extremities: No cyanosis clubbing or edema. No calf tenderness or assymetry Spine/Back. Non tender to palpation. No CVA tenderness Skin: Good turgor without rashes. Neurologic exam: Cranial nerves two through 12 are intact. Motor and sensation are intact and symmetrical throughout. Course Administered Medications Buspirone HCl (Buspirone 15 Mg Tab) 15 mg PO BID RADHA Stop: 09/22/24 21:25 Last Admin: 08/23/24 22:32 Dose: 15 mg Documented By: BENJAMÍN Finasteride (Finasteride 5 Mg Tab) 0.5 mg PO QPM RADHA Stop: 09/22/24 21:25 Last Admin: 08/23/24 22:31 Dose: 0.5 mg Documented By: BENJAMÍN Gabapentin (Gabapentin 300 Mg Cap) 300 mg PO HS RADHA Stop: 09/22/24 21:25 Last Admin: 08/23/24 22:30 Dose: 300 mg Documented By: BENJAMÍN Lactated Ringer's (Lr) 1,000 mls @ 110 mls/hr IV .Q9H6M RADHA Stop: 09/22/24 21:25 Last Admin: 08/23/24 22:32 Dose: 110 mls/hr Documented By: BENJAMÍN Ceftriaxone Sodium (Rocephin) 2,000 mg in 50 mls @ 100 mls/hr IV Q24H RADHA Stop: 08/28/24 21:59 Last Admin: 08/23/24 22:33 Dose: 100 mls/hr Documented By: BENJAMÍN Metoprolol Succinate (Metoprolol Succ 50mg Ext Rel Tab) 150 mg PO BID RADHA Stop: 09/22/24 21:25 Last Admin: 08/23/24 22:32 Dose: Not Given Documented By: BENJAMÍN Tamsulosin HCl (Tamsulosin Hcl 0.4 Mg Cap) 0.4 mg PO HS RADHA Stop: 09/22/24 21:25 Last Admin: 08/23/24 22:29 Dose: 0.4 mg Documented By: BENJAMÍN Discontinued Medications Ceftriaxone Sodium (Rocephin) 2,000 mg in 50 mls @ 100 mls/hr IV NOW STA Stop: 08/23/24 18:48 Last Infusion: 08/23/24 19:15 Dose: Infused Documented By: Admin: 08/23/24 18:29 Dose: 100 mls/hr Documented By: BOY Sodium Chloride (Nss) 1,000 mls @ 999 mls/hr IV .Q1H1M ONE Stop: 08/23/24 19:23 Last Infusion: 08/23/24 19:39 Dose: Infused Documented By: Admin: 08/23/24 18:30 Dose: 999 mls/hr Documented By: BOY Miscellaneous (Patient's Height &/Or Weight Needed) 1 each N/A ONE STA Stop: 08/23/24 21:30 Last Admin: 08/23/24 22:25 Dose: 1 each Documented By: BENJAMÍN Medical Decision Making Differential Diagnosis Postop complication, urinary retention, UTI, sepsis, infection, kidney stone, intra-abdominal process Medical Records Attestation: I reviewed the patient's medical records. Home Medications Current Medication List: was personally reviewed by me Laboratory Data Attestation: I reviewed the patient's lab results. 08/23/24 15:15 08/23/24 15:15 Lab Results 08/23/24 08/23/24 Range/Units 15:15 16:11 WBC 14.90 H (4.8-10.8) K/ul RBC 5.29 (4.70-6.10) M/uL Hgb 15.2 (14.0-18.0) g/dl Hct 46.2 (42.0-52.0) % MCV 87.3 (80.0-100.0) fL MCH 28.7 (25.0-34.0) pg MCHC 32.9 (32.0-36.0) g/dL RDW Std Deviation 40.6 (36.4-46.3) fL RDW Coeff of Leslie 12.9 (11.5-14.5) % Plt Count 173 (130-400) K/uL MPV 11.0 (9.4-12.4) fL Immature Gran % (Auto) 0.4 % Neut % (Auto) 89.7 % Lymph % (Auto) 2.9 % [place] % (Auto) 6.4 % Eos % (Auto) 0.4 % Baso % (Auto) 0.2 % Neut # (Auto) 13.36 H (1.40-6.50) K/uL Lymph # (Auto) 0.43 L (1.20-3.40) K/uL [place] # (Auto) 0.96 H (0.11-0.59) K/uL Eos # (Auto) 0.06 (0.00-0.50) K/uL Baso # (Auto) 0.03 (0.00-0.20) K/uL Immature Gran # (Auto) 0.06 (0.01-0.20) K/uL Sodium 134 L (136-145) mmol/L Potassium 4.9 (3.5-5.1) mmol/L Chloride 99 (98-107) mmol/L Carbon Dioxide 27 (21-32) mmol/L Anion Gap 8 (3-11) BUN 18 (6-23) mg/dl Creatinine 1.46 H (0.6-1.4) mg/dl Est Cr Clr Drug Dosing Not Reportable eGFR 51.41 BUN/Creatinine Ratio 12.3 (10-20) Glucose 129 H (70-99(Fasting)) mg/dl Calcium 10.2 (8.6-10.3) mg/dl Total Bilirubin 0.8 (0.2-1.0) mg/dl AST 20 (13-39) U/L ALT 19 (7-52) U/L Alkaline Phosphatase 54 (34-104) U/L Total Protein 7.5 (6.0-8.3) gm/dl Albumin 4.5 (3.4-5.0) gm/dl Globulin 3.0 (2.5-4.0) gm/dl Albumin/Globulin Ratio 1.5 (0.9-2) Urine Color See Comment Urine Appearance Slightly Cloudy (Clear) Urine pH Not Reportable Ur Specific [place] 1.012 (1.000-1.030) Urine Protein Not Reportable Urine Glucose (UA) Not Reportable Urine Ketones Not Reportable Urine Blood Not Reportable Urine Nitrite Not Reportable Urine Bilirubin Not Reportable Urine Urobilinogen Not Reportable Ur Leukocyte Esterase Not Reportable Urine RBC 11-20 H (0-2) /hpf Urine WBC 21-50 H (0-5) /hpf Ur Epithelial Cells 3-5 H (0-2) /hpf Urine Bacteria 1+ H (None Seen) Hyaline Casts Present A (None Presnt) /lpf Imaging Data Attestation: I personally reviewed and interpreted this imaging study as follows: My Impression: CT stone studythere appears to be mild hydro on the right Radiologist's Impression: Abdomen/Pelvis CT 08/23/24 16:[address] WITHOUT CONTRAST CT DOSE: 1631.02 mGy.cm HISTORY: Acute right-sided flank pain with recent cystourethrogram rt flank pain, cyto yesterday TECHNIQUE: Multiaxial CT images of the abdomen and pelvis were performed without contrast. A dose lowering technique was utilized adhering to the principles of ALARA. COMPARISON STUDY: CT May 09, 2024 FINDINGS: Right hemidiaphragmatic elevation with partially imaged liver. Mild subsegmental right basilar atelectasis. No free air. The unenhanced spleen, moderately atrophic pancreas, gallbladder, liver and adrenal glands appear unremarkable. Portion of the superior right hepatic lobe is not imaged. There is mild nonspecific bilateral perinephric stranding. Cortical thinning of the kidneys. Bilateral renal cysts redemonstrated measuring up to approximately 2.2 cm on the left. There are a few small scattered bilateral renal sinus cysts also again noted. Right greater than left bilateral perinephric stranding has progressed from prior. Mild right-sided hydroureteronephrosis secondary to a 5 x 4 x 5 m calculus of the UVJ. No additional urolith identified. Urinary bladder wall thickening with partial distention. Small fat filled hernias. Atherosclerosis of the aorta without aneurysm. No lymphadenopathy. No bowel obstruction or bowel wall thickening. Colonic diverticulosis without acute diverticulitis. Normal appendix. Right hip arthroplasty. Degenerative postoperative changes of the spine. IMPRESSION: 1. Mild right-sided hydroureteronephrosis secondary to an obstructing 5 mm calculus at the UVJ. 2. No bowel obstruction or bowel wall thickening. 3. Incidental findings as above. ACT 112: Negative or not required by law. The above report was generated using voice recognition software. It may contain grammatical, syntax or spelling errors. Electronically signed by: Kike Mari M.D. 08/23/2024 5:09 PM [facility] Narrative This patient comes in as described above. He was placed in room C10. He is having right flank pain he had a procedure done yesterday. He is stable vital signs here. He has mild tenderness when I tap on his flank. He has not no evidence suggest testicular torsion or hernia on exam. His white count was elevated at 14. His creatinine is also little elevated at 1.4. I did do a CT stone study. Urinalysis also obtained he was reassessed frequently. His urinalysis does suggest infection. His creatinine is mildly elevated with no baseline. His CAT scan shows obstructive uropathy with a stone at the UVJ and mild hydro. I did discuss the case at length with Dr. Segundo, urology. Given the patient's stable he does not feel the patient needs an acute intervention but thinks that the patient should be admitted/observed with IV antibiotics and kept n.p.o. after midnight in the event that he needs a stent tomorrow. I did order Rocephin 2 g IV also a 1 L IV normal saline bolus ,given the concern for sepsis. I did consult the [facility] hospitalist and talk to Dr. Murray at length. The patient will be admitted/observed for these measures. Continuous monitoring analyst: Orders placed in EMR for continuous cardiac monitoring: Pulm evaluation patient with to be normal sinus with a rate of 65 Impression & Plan Acute right flank pain, USP (current) use of 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/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, Status post cystoscopy, Renal colic on right side, Hydronephrosis, Acute UTI (urinary tract infection) Discharge Plan Visit Data Chief Complaint: Flank Pain Stated Complaint: SEVERE KIDNEY PAIN, BLADDER/TESTICULAR PAIN ED Provider: Brian Hernandez Discharge Problem: Acute right flank pain, rn long term care (current) use of 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/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, Status post cystoscopy, Renal colic on right side, Hydronephrosis, Acute UTI (urinary tract infection) Patient Disposition: Admitted As Inpatient Discharge Instructions Interventions: ED Discharge Assessment Last Done: 08/23/24 20:14 Discharge Problem: Hydronephrosis Qualifiers: Hydronephrosis type: with renal calculous obstruction Qualified Code(s): N13.2 - Hydronephrosis with renal and ureteral calculous obstruction
[2024-08-23 16:43] LABS: Appearance Urine Slightly Cloudy (Clear); Specific Gravity Urine 1.012 (1.000-1.030)
[2024-08-23 16:49] LABS: Bacteria Urine 1+ (None Seen); WBC Urine 21-50 /hpf (0-5)
[2024-08-23 16:50] LABS: Hyaline Casts Urine Present /lpf (None Presnt)
--- NOTE | 2024-08-23 17:12 | CT Scan Report ---
ABDOMEN AND PELVIS CT WITHOUT CONTRAST CT DOSE: 1631.02 mGy.cm HISTORY: Acute right-sided flank pain with recent cystourethrogram rt flank pain, cyto yesterday TECHNIQUE: Multiaxial CT images of the abdomen and pelvis were performed without contrast. A dose lo wering technique was utilized adhering to the principles of ALARA. COMPARISON STUDY: CT May 09, 2024 FINDINGS: Right hemidiaphragmatic elevation with partially imaged liver. Mild subsegmental right basi lar atelectasis. No free air. The unenhanced spleen, moderately atrophic pancreas, gallbladder, liver and adrenal glands appear unremarkable. Portion of the superior right hepatic lobe is not imaged. There is mild nonspecific bilateral perinephric stranding. Cortical thinning of the kidneys. Bilatera l renal cysts redemonstrated measuring up to approximately 2.2 cm on the left. There are a few small scattered bilateral renal sinus cysts also again noted. Right greater than left bilateral perinephric stranding has progressed from prior. Mild right-sided hydroureteronephrosis secondary to a 5 x 4 x 5 m calculus of the UVJ. No additional urolith identified. Urinary bladder wall thickening with partia l distention. Small fat filled hernias. Atherosclerosis of the aorta without aneurysm. No lymphadenop athy. No bowel obstruction or bowel wall thickening. Colonic diverticulosis without acute diverticulitis. N ormal appendix. Right hip arthroplasty. Degenerative postoperative changes of the spine. IMPRESSION: 1. Mild right-sided hydroureteronephrosis secondary to an obstructing 5 mm calculus at the UVJ. 2. No bowel obstruction or bowel wall thickening. 3. Incidental findings as above. ACT 112: Negative or not required by law. The above report was generated using voice recognition software. It may contain grammatical, syntax o r spelling errors. Electronically signed by: Kike Mari M.D. 08/23/2024 5:09 PM
[2024-08-23] MEDS: cefTRIAXone SODIUM 2,000 MG/50 ML BAG IV STA (18:29)
[2024-08-23] MEDS: SODIUM CHLORIDE 0.9% 1,000 ML IV ONE (18:30)
--- NOTE | 2024-08-23 20:19 | History & Physical Report ---
Date of Service August 23, 2024 Assessment & Plan (1) Kidney stones: Plan: Patient presents with right sided flank pain - imaging noted with 5mm stone on RIGHT side at UVJ- associated with mild hydronephrosis - UA obtained- devin with contaminated urine- however with recent instrumentation and stone- continue with Rocephin 1GM daily - Pain control teired- tyelnol mild, oxy IR 5mg moderate, Morphine 2mg severe pain - Continue with LR at 115 ml/hour - Flomax continue - Urology consultation placed- consultation appreciated - NPO after midnight - Chemoprophylaxis on hold until surgical evaluation completed (2) BARB (acute kidney injury): Plan: BARB on CKD III - AGING BOX HAND elevated likely in setting of obstructing stone - IVF as above - Hold MARINE - Flomax continue (3) Paroxysmal atrial fibrillation: Plan: PAF on Metoprolol and Apixaban at home - Last dose of Apixaban 08/23/24 - 0900 - Currently in NSR- Continue with Metoprolol- rate and rhythm controlled at this juncture - no indicate for telemetry at this time - Continue Metoprolol - Hold apixaban as above until surgical evaluation/procedural evaluation completed (4) CKD (chronic kidney disease), stage III: Plan: as above #3 (5) HTN (hypertension): Plan: HTN appears normally well controlled - elevated at this time likely secondary to pain - Continue amlodopine - Hold MARINE with BARB - Continue Metoprolol (6) Back pain, chronic: Plan: Back/Knee pain - Continue baclofen - Continue gabapentin - Add Tylenol History of Present Illness Chief Complaint: flank pain Primary Care Provider: 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 Patient came to the EMD today for 1 day history of right sided flank pain that started this morning. Initially it was associated with decrease urination and feeling like he was not emptying his bladder fully. He recently had a 3 month follow up with Urology for screening cystoscopy on 07/22/24 as well as follow up on damaged urethra from August 01 related to Romeo insertion. He called the urology office and he was seen there where he had PVR done, UA and was given dose of Ciprofloxacin. He was discharged home, once he got home, he had increase in pain on the right flank, this time was associated with rigors, nausea without vomiting, and low grade fever which he reports orally as 100.3. The pain then became a little more constant and now was associated with radiation of pain into groin and testicle. He came to the [facility]. He had CT of the abdomen/pelvis completed, he was noted to have a 5mm right renal stone at the UVJ and mild hydronephrosis. He was given a dose of Rocephin in the EMD. Patient will be admitted to medical floor, will make NPO after midnight, urology consultation for possible evaluation related to stone, will provide pain control, continue his Alpha blockers, and IVF. WIll strain all urine. Will hold evening dose of Apixaban until procedural evaluation is completed. CODE: FULL Allergies Allergy/AdvReac Type Severity Reaction Status Date / Time atorvastatin AdvReac Intermediate Joint Pain Verified 07/24/24 13:49 Home Medications Medication Instructions Recorded Confirmed Type dutasteride 0.5 mg capsule 0.5 mg PO QPM #90 caps 11/16/23 08/23/24 Rx (Avodart) lisinopril 40 mg tablet 40 mg PO QAM #90 tabs 12/22/23 08/23/24 Rx sodium bicarbonate 650 mg tablet 1,300 mg PO DAILY PRN SEE BELOW 01/24/24 08/23/24 History tamsulosin 0.4 mg capsule 0.4 mg PO HS #90 caps 01/31/24 08/23/24 Rx metoprolol succinate 100 mg 150 mg (1.5 x 100 mg) PO BID #270 03/27/24 08/23/24 Rx tablet,extended release 24 hr tabs amlodipine 2.5 mg tablet 2.5 mg PO DAILY #90 tabs 05/08/24 08/23/24 Rx gabapentin 300 mg capsule 300 mg PO HS #30 caps 05/28/24 08/23/24 Rx buspirone 15 mg tablet 15 mg PO BID #180 tabs 07/03/24 08/23/24 Rx colchicine 0.6 mg tablet 0.6 mg PO BID PRN gout 07/16/24 08/23/24 History alprazolam 0.5 mg tablet (Xanax) 0.5 mg PO QAM PRN Anxiety #30 tabs 07/17/24 08/23/24 Rx apixaban 5 mg tablet (Eliquis) 5 mg PO BID #180 tabs 08/14/24 08/23/24 Rx baclofen 10 mg tablet 10 mg PO TID PRN muscle spasm #270 08/18/24 08/23/24 Rx tabs tramadol 50 mg tablet 50 mg PO BID PRN pain #60 tabs 08/21/24 08/23/24 Rx diltiazem HCl 120 mg 120 mg PO UD 08/23/24 08/23/24 History capsule,extended release 24 hr, controlled Past Med/Surg History Problem List Acute UTI (urinary tract infection) (Acute) Hydronephrosis (Acute) Renal colic on right side (Acute) BARB (acute kidney injury) 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 post 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 (Acute) Acute right flank pain (Acute) Bladder cancer s/p BCG treatment Right testicular pain Hyperkalemia Lightheadedness Obesity Atypical chest pain entered into EMR 06/06/21-unable to verify with patient; to chart review 06/20/21 underwent dobutamine stress echo which was below target HR at 84% MPHR-no ischemic changes; cleared for surgery 07/2021 by cardiology Microscopic hematuria Benign prostatic hyperplasia with urinary obstruction Kidney stones Dyslipidemia Paroxysmal atrial fibrillation CKD (chronic kidney disease), stage III Anemia Gout Dry eyes HTN (hypertension) (Acute) Spinal stenosis, lumbar region with neurogenic claudication Insomnia Heart disease (Chronic) Extrinsic asthma Depression Chronic asthmatic bronchitis Back pain, chronic BPH (benign prostatic hyperplasia) (Acute) Anxiety Allergic rhinitis Medical History Allergic rhinitis Chronic back pain Heart disease History of anemia Dyslipidemia Environmental and seasonal allergies Bladder cancer (2022) s/p BCG treatment completed chemo 11/2023 Nausea and vomiting after administration of anesthetic agent 35 yr ago but many surgeries since without issues Urinary retention Was seen in ER in June 2021- had romeo catheter placed x 1 weeks- no issues since Romeo catheter removed CKD (chronic kidney disease), stage III follows [address] Dr. Anaya BPH (benign prostatic hyperplasia) Gout Recent gout episode x 1-2 days- started with left knee pain- now left toe Will check with surgeon's office to see if he can start on Colchicine - will contact PCP if symptoms continue/get worse Atrial fibrillation Dx 2019> follows with Dr. Quinteros > continues with palpitations- on Metoprolol - per cardio- takes extra Metoprolol and symptoms improve On Eliquis Kidney stones Currently under observation Degenerative disc disease Spinal stenosis Anxiety and depression Asthma stable > exercise induced > no res inh use Hypertension Surgical History History of bronchoscopy S/P epidural steroid injection S/P cystoscopy w/ bx and cauterization of re-emerging tumors in bladder "found to be benign" S/P ureteral stent placement 08/18/21 Dr. Thaddeus Anaya- L retrograde pyelogram, L ureteral stent S/P TURP (transurethral resection of prostate) 08/18/21 Dr. Thaddeus Anaya at [facility]; also removed malignant bladder tumors at the same time History of cardiac catheterization 20 YRS AGO= NO STENTS; done in [place] History of colonoscopy with polypectomy History of shoulder surgery R X2 , L X1 History of total left knee replacement History of total right hip arthroplasty (~10/2016) History of fusion of cervical spine C4-C5 ACDF> ROM limited per pt History of lumbar fusion L2-S1 HDW 08/14/19 Dr. Renan Grullon- Removal of posterior instrumentation L4-5; Exploration of fusion L4-5; Lumbar decompression bilateral medial facetectomies and foraminotomies L2-3 L3-4 L5-S1; Posterior spinal fusion L2- 3 L3-4 L4-5 L5-S1; Placement posterior segmental instrumentation from L2-S1; Interbody fusion L3-4 and L5-S1; Placement of titanium 11 x 26 mm cage at L3- 4 and 12 x 26 mm cage at L5-S1; Placement of locally harvested morselized autograft in the posterior lateral gutters; Placement infuse collagen sponge, master graft in the posterior lateral gutters and ostial amp and interbody space. History of urologic surgery KIDNEY STONE REMOVAL Family History Father Family history of melanoma Osteoarthritis Hypertension Kidney malignant neoplasm Melanoma Cardiac disorder Myocardial infarction, Onset Age: 30 Mother Family history of colon cancer Denies family history of Ovarian cancer Prostate cancer Breast cancer Colorectal cancer Social History Smoking Status: Never smoker Second Hand Exposure: No; Do You Dip or Chew Tobacco: No; Hx Alcohol Use: No Hx Substance Use: No Preferred Language: Macedonian Communication Ability: Effective Visual Impairment: No Limitations Hearing Ability: Hard of Hearing 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 Beliefs That Will Affect Care: None marital status: Current Living Situation: Spouse Current Living Situation Comment: SPOUSE current occupational status: retired 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 How many Children do You have: 0 Other Information That Helps Us Care for You: No Feels Safe at Home: Yes Safety Concerns: Feels Safe At This Time Childhood Exposure to Second-Hand Smoke: Yes Diet: low carbohydrate and regular Diet Comment: low added sugars caffeine: Yes Dental Care, Regularly: No Physical Activity Frequency: Daily Physical Activity Frequency Comment: walks 3 times a day Seatbelt Use: always Sunscreen Use: Yes Assistive Devices: Glasses and Stair Lift Review of Systems Review of Systems: REVIEW OF SYSTEMS: Constitutional: (+) fever, sweats or chills Eyes: No diplopia, no worsening or blurred vision ENT: normal hearing, no trouble swallowing Respiratory: No cough, sputum, dyspnea at rest or on exertion Cardiovascular: (+) hx palpitations and afib, currently with No chest pain, tightness or palpitations Abdomen: (+) right flank pain, No nausea, vomiting, diarrhea or constipation Musculoskeletal: (+) nephropathy, chronic knee joint pain, Neurologic: No weakness, numbness/tingling, or balance problems Psychiatric: No anxiety or depression Skin: No rash or itch Physical Exam Physical Exam: PHYSICAL EXAM: General: awake, alert, no apparent distress Head: Normocephalic, atraumatic ENT: PERRL, EOMI, no pharyngeal exudate, mucous membranes moist Neuro: AAO x 3, speech clear and appropriate, strength intact bilaterally 5/5, sensation intact and equal all extremities and dermatomes, no pronator drift Chest: equal rise and fall of the chest, no accessory muscle use, no heaves or thrills, Clear to auscultation, on room air, Cardiac: Regular rate and rhythm, telelmetry reviewed- NSR no ectopy, skin warm dry, cap refill <3 seconds, peripheral pulses +2 no JVD, no murmur, no edema GI: NABS x 4 quadrants, soft, nontender to palpation, no rebound, guarding or tenderness : Spontaneously voiding, no pain,CVA tenderness to right flank with radiation to right groin with percussion Psych: Normal mood and affect Skin: no rash or erythema Results & Data Results & Data Vital Signs (Past 12 Hours) Vital Signs Temp Pulse Pulse Resp BP BP Pulse Ox 08/23/24 17:00 75 20 191/84 H 92 08/23/24 16:14 77 08/23/24 15:09 37.1 C 84 18 160/80 H 95 O2 Del Method 08/23/24 17:00 Room Air 08/23/24 16:14 08/23/24 15:09 Room Air Laboratory Results Abnormal lab results 08/23/24 08/23/24 Range/Units 15:15 16:11 WBC 14.90 H (4.8-10.8) K/ul Neut # (Auto) 13.36 H (1.40-6.50) K/uL Lymph # (Auto) 0.43 L (1.20-3.40) K/uL Schleicher # (Auto) 0.96 H (0.11-0.59) K/uL Sodium 134 L (136-145) mmol/L Creatinine 1.46 H (0.6-1.4) mg/dl Glucose 129 H (70-99(Fasting)) mg/dl Urine RBC 11-20 H (0-2) /hpf Urine WBC 21-50 H (0-5) /hpf Ur Epithelial Cells 3-5 H (0-2) /hpf Urine Bacteria 1+ H (None Seen) Hyaline Casts Present A (None Presnt) /lpf Diagnostic Findings Abdomen/Pelvis CT 08/23/24 16:[address] WITHOUT CONTRAST CT DOSE: 1631.02 mGy.cm HISTORY: Acute right-sided flank pain with recent cystourethrogram rt flank pain, cyto yesterday TECHNIQUE: Multiaxial CT images of the abdomen and pelvis were performed without contrast. A dose lowering technique was utilized adhering to the principles of ALARA. COMPARISON STUDY: CT May 09, 2024 FINDINGS: Right hemidiaphragmatic elevation with partially imaged liver. Mild subsegmental right basilar atelectasis. No free air. The unenhanced spleen, moderately atrophic pancreas, gallbladder, liver and adrenal glands appear unremarkable. Portion of the superior right hepatic lobe is not imaged. There is mild nonspecific bilateral perinephric stranding. Cortical thinning of the kidneys. Bilateral renal cysts redemonstrated measuring up to approximately 2.2 cm on the left. There are a few small scattered bilateral renal sinus cysts also again noted. Right greater than left bilateral perinephric stranding has progressed from prior. Mild right-sided hydroureteronephrosis secondary to a 5 x 4 x 5 m calculus of the UVJ. No additional urolith identified. Urinary bladder wall thickening with partial distention. Small fat filled hernias. Atherosclerosis of the aorta without aneurysm. No lymphadenopathy. No bowel obstruction or bowel wall thickening. Colonic diverticulosis without acute diverticulitis. Normal appendix. Right hip arthroplasty. Degenerative postoperative changes of the spine. IMPRESSION: 1. Mild right-sided hydroureteronephrosis secondary to an obstructing 5 mm calculus at the UVJ. 2. No bowel obstruction or bowel wall thickening. 3. Incidental findings as above. ACT 112: Negative or not required by law. The above report was generated using voice recognition software. It may contain grammatical, syntax or spelling errors. Electronically signed by: Kike Mari M.D. 08/23/2024 5:09 PM Medications Administered Home Medications dutasteride 0.5 mg capsule (Avodart) 0.5 mg PO QPM #90 caps 11/16/23 [Rx Confirmed 07/24/24] lisinopril 40 mg tablet 40 mg PO QAM #90 tabs 12/22/23 [Rx Confirmed 07/24/24] sodium bicarbonate 650 mg tablet 1,300 mg PO DAILY 01/24/24 [History Confirmed 07/24/24] tamsulosin 0.4 mg capsule 0.4 mg PO HS #90 caps 01/31/24 [Rx Confirmed 07/24/24] metoprolol succinate 100 mg tablet,extended release 24 hr 150 mg (1.5 x 100 mg) PO BID #270 tabs 03/27/24 [Rx Confirmed 07/24/24] amlodipine 2.5 mg tablet 2.5 mg PO DAILY #90 tabs 05/08/24 [Rx Confirmed 07/24/24] gabapentin 300 mg capsule 300 mg PO HS #30 caps 05/28/24 [Rx Confirmed 07/24/24] buspirone 15 mg tablet 15 mg PO BID #180 tabs 07/03/24 [Rx Confirmed 07/24/24] colchicine 0.6 mg tablet 0 mg PO UD PRN gout 07/16/24 [History Confirmed 07/24/24] alprazolam 0.5 mg tablet (Xanax) 0.5 mg PO QAM PRN Anxiety #30 tabs 07/17/24 [Rx Confirmed 07/24/24] apixaban 5 mg tablet (Eliquis) 5 mg PO BID #180 tabs 08/14/24 [Rx] baclofen 10 mg tablet 10 mg PO TID PRN muscle spasm #270 tabs 08/18/24 [Rx] tramadol 50 mg tablet 50 mg PO BID PRN pain #60 tabs 08/21/24 [Rx] Code Status & VTE Plan VTE Prophylaxis Plan VTE Prophylaxis will be ordered: Yes Supervising Physician Co-Signing Physician Notes Patient seen and examined, chart reviewed, case discussed with APOLINAR Farley and I agree with the assessment and plan as above. Patient with history of bladder cancer currently undergoing BCG treatments. Follows with [facility]. Patient presenting with 5mm stone at right UVJ with mild hydronephrosis. Pain has since improved - did receive Tylenol with relief Mild BARB Exam: Patient resting comfortably in room 359 Skin - no rash HEENT - MMM, Neck supple Heart - +S1/S2 Lungs - CTA, no rales/rhonchi/wheezes Abd - +BS, soft, NT/ND Ext - SCDs in place Labs and images reviewed WBC=14.9 Cr=1.46 UA with 1+ bacteria, recent instrumentation Assessment/Plan: -Pain control, IVF, Flomax, urine strainer -Urology consultation appreciated -Remainder as above PG Care Time/CCT Total # of Minutes Spent Total Time Spent with Patient: Total time spent is greater than 50% in coordination of care (as documented) at patient's floor/unit and/or counseling patient: Coding Level of Care Code 26909 INT INP/OBS CARE 2/55MIN Diagnoses Kidney stones N20.0 BARB (acute kidney injury) N17.9 Paroxysmal atrial fibrillation I48.0 Stage 3a chronic kidney disease N18.31 Chronic kidney disease stage 3 subtype: stage 3a (GFR 45-59) HTN (hypertension) I10 Hypertension type: unspecified Chronic low back pain without sciatica, unspecified back pain laterality M54.5; G89.29 Back pain laterality: unspecified Back pain location: low back pain Sciatica presence: without sciatica Time Spent (min) 55 (4) CKD (chronic kidney disease), stage III Chronic kidney disease stage 3 subtype: stage 3a (GFR 45-59) Qualified C ode(s): N18.31 - Chronic kidney disease, stage 3a (5) HTN (hypertension) Hypertension type: unspecified Qualified Code(s): I10 - Essential (primary) hypertension (6) Back pain, chronic Back pain laterality: unspecified Back pain location: low back pain Sciatica presence: without sciatica Qualified Code(s): M54.5 - Low back pain; G89.29 - Other chronic pain
[2024-08-23] MEDS ORDERED: ONDANSETRON INJ 2 MG/ML 2 ML VIAL IV PRN (21:26)
[2024-08-23] MEDS ORDERED: MoRPHine SULFATE 2 MG/ML CARP IV PRN (21:26)
[2024-08-23] MEDS ORDERED: BACLOFEN 10 MG TAB PO PRN (21:26)
[2024-08-23] MEDS: Patient's HEIGHT &/or WEIGHT Needed STA (22:25)
[2024-08-23] MEDS: TAMSULOSIN HCL 0.4 MG CAP PO SCH (22:29)
[2024-08-23] MEDS: GABAPENTIN 300 MG CAP PO SCH (22:30)
[2024-08-23] MEDS: FINASTERIDE 5 MG TAB PO SCH (22:31)
[2024-08-23] MEDS: METOPROLOL SUCC 50MG EXT REL TAB PO SCH (22:32)
[2024-08-23] MEDS: busPIRone 15 MG TAB PO SCH (22:32)
[2024-08-23] MEDS: LACTATED RINGER'S 1,000 ML IV SCH (22:32)
[2024-08-23] MEDS: cefTRIAXone SODIUM 2,000 MG/50 ML BAG IV SCH (22:33)
[2024-08-24] MEDS: oxyCODONE HCL IR 5 MG TAB (IMMEDIATE RELEASE) PO PRN (02:08)
[2024-08-24] MEDS ORDERED: Nursing to Pharmacy Communication SCH (04:15)
[2024-08-24] MEDS: METOPROLOL SUCC 50MG EXT REL TAB PO SCH (04:29)
[2024-08-24] MEDS: ACETAMINOPHEN 325 MG TAB PO PRN (04:29)
[2024-08-24 08:22] LABS: Basophils # (auto) 0.03 K/uL (0.00-0.20); Basophils % (auto) 0.3 %; Eosinophils # (auto) 0.05 K/uL (0.00-0.50); Eosinophils % (auto) 0.5 %; Hematocrit (blood only) 37.4 % (42.0-52.0); Hemoglobin 12.7 g/dl (14.0-18.0); Immature Granulocytes # (auto) 0.04 K/uL (0.01-0.20); Immature Granulocytes % (auto) 0.4 %; Lymphocytes # (auto) 0.48 K/uL (1.20-3.40); Lymphocytes % (auto) 5.1 %; Mean Corpuscular Hemoglobin 29.3 pg (25.0-34.0); Mean Corpuscular Volume 86.4 fL (80.0-100.0); Mean Platelet Volume 11.4 fL (9.4-12.4); Monocytes % (auto) 10.6 %; Neutrophils # (auto) 7.86 K/uL (1.40-6.50); Neutrophils % (auto) 83.1 %; Platelet Count 150 K/uL (130-400); RDW Coefficient of Variation 13.2 % (11.5-14.5); RDW Standard Deviation 41.3 fL (36.4-46.3); Red Blood Count 4.33 M/uL (4.70-6.10); White Blood Count 9.46 K/ul (4.8-10.8)
[2024-08-24] MEDS: amLODIPine BESYLATE 5 MG TAB PO SCH (08:23)
[2024-08-24 08:35] LABS: BUN Creatinine Ratio 11.9 (10-20); Creatinine Clr Calc Pharmacy 58.5 ml/min; Magnesium 1.7 mg/dl (1.7-2.4)
[2024-08-24] MEDS ORDERED: INFLUENZA VACC TS2024-25(65y+)/PF (IIV3) 0.5mL Syr IM ONE (09:00)
--- NOTE | 2024-08-24 10:26 | Hospitalist Progress Note ---
Date of Service August 24, 2024 Assessment & Plan (1) Kidney stones: Plan: Right UVJ stone and mild right hydronephrosis seen on admission. Creatinine mildly elevated at 1.4 on admission and 1.5 today, August 24. Urology consultation is ordered and pending. Eliquis and lisinopril are on hold. Continue IV fluids for now (2) BARB (acute kidney injury): Plan: BARB on CKD III. Mild. Creatinine 1.4 on admission and today 1.5. Will follow. Lisinopril is currently on hold (3) Paroxysmal atrial fibrillation: Plan: Stable. Continue metoprolol. Eliquis was held on admission. (4) CKD (chronic kidney disease), stage III: Plan: Monitor intake and output. Serial labs (5) HTN (hypertension): Plan: Stable. Continue amlodipine and metoprolol. Lisinopril is currently on hold. (6) Back pain, chronic: Plan: Stable. Continue current medical management Plan Anticipate eventual discharge to home within the next day or 2 Admission and Anticipated Discharge Date Admission Date: August 23, 2024 Subjective Alert and oriented. No distress. Awaiting urology consultation and recommendations. Creatinine 1.4 on admission and today 1.5. Continue IV fluids. He remains on intravenous Rocephin, day 2. Eliquis is on hold. He is currently NPO. If no urology procedure is going to be done today, will ordered a diet Review of Systems 2 Review of Systems: Constitutionalno fever or chills ENTno blurred vision, no double vision, no epistaxis, no sore throat Respiratoryno cough, no wheezing, no shortness of breath Cardiacno palpitations, no chest pain, no syncope Soniya nausea, vomiting, diarrhea, melena, hematochezia GUno urinary retention, no urinary incontinence, no dysuria, no hematuria Musculoskeletalno joint pain, no muscle tenderness Skinno bruising, no rashes, no pruritus Neurono isolated weakness, no paresthesia, no weakness Psychno depression, no anxiety Physical Exam 2 Physical Exam: General-alert and oriented x3, no fever, no chills HEENT-head atraumatic and normocephalic, pupils equal and reactive to light, extraocular muscles intact Neck-no lymphadenopathy or thyromegaly, trachea midline Chest-clear to auscultation. No rales, wheezing or rhonchi Cardiac-regular rate and rhythm, normal S1 and S2 Abdomen-normal bowel sounds, no hepatosplenomegaly Extremities-no cyanosis, clubbing, or edema Neuro-cranial nerves II through XII intact, motor and sensory function within normal limits, strength symmetrical, no focal deficits Psych-normal affect, normal mood Results & Data Results & Data Vital Signs (Past 12 Hours) Vital Signs Temp Pulse Pulse Resp BP BP Pulse Ox 08/24/24 07:19 36.9 C 64 16 136/74 92 08/24/24 04:30 37.7 C H 70 12 169/82 H 92 08/24/24 00:08 37.4 C 62 18 146/75 H 93 08/23/24 23:14 37.7 C H 68 18 152/77 H 95 O2 Del Method 08/24/24 07:19 Room Air 08/24/24 04:30 Room Air 08/24/24 00:08 Room Air 08/23/24 23:14 Room Air Laboratory Results 08/24/24 07:49 08/24/24 07:49 PG Care Time/CCT Total # of Minutes Spent Total Time Spent with Patient: Total time spent is greater than 50% in coordination of care (as documented) at patient's floor/unit and/or counseling patient: Coding Level of Care Code 42812 SUB INP/OBS CARE 3/50MIN Diagnoses Kidney stones N20.0 BARB (acute kidney injury) N17.9 Paroxysmal atrial fibrillation I48.0 Stage 3a chronic kidney disease N18.31 Chronic kidney disease stage 3 subtype: stage 3a (GFR 45-59) HTN (hypertension) I10 Hypertension type: unspecified Chronic low back pain without sciatica, unspecified back pain laterality M54.5; G89.29 Back pain location: low back pain Back pain laterality: unspecified Sciatica presence: without sciatica (4) CKD (chronic kidney disease), stage III Chronic kidney disease stage 3 subtype: stage 3a (GFR 45-59) Qualified Code(s): N18.31 - Chronic kidney disease, stage 3a (5) HTN (hypertension) Hypertension type: unspecified Qualified Code(s): I10 - Essential (primary) hypertension (6) Back pain, chronic Back pain location: low back pain Back pain laterality: unspecified Sciatica presence: without sciatica Qualified Code(s): M54.5 - Low back pain; G89.29 - Other chronic pain
--- NOTE | 2024-08-24 13:03 | Urology Consultation ---
Date of Consultation August 24, 2024 Assessment & Plan (1) Ureteral stone: (2) Renal colic on right side: (3) Hydronephrosis: Plan 69-year-old male admitted with severe right flank pain secondary to an obstructing right ureteral stone He is afebrile and hemodynamically stable Labs today show no leukocytosis and creatinine 1.51 (1.46 on admission) Urine culture preliminary gram-negative bacilli We discussed acute stone management with cystoscopy and stent placement. Ure teral stents were discussed as well as postoperative issues and pain management. He is aware a second procedure may be needed. Risks and benefits were discussed. All questions were answered. Will plan to proceed to OR today for cystoscopy, right retrograde pyelogram, right ureteral stent placement, possible ureteroscopy, laser lithotripsy/stone treatment with Dr. Anaya depending on findings. Risks and benefits to be reviewed with patient by Dr. Anaya. Keep NPO. Covered with scheduled IV ceftriaxone. Urology to follow. Attending note: Patient independently assessed, examined, interviewed, and evaluated. Well- known patient with history of bladder cancer undergoing active treatment for BCG refractory recurrent bladder cancer. Had increasing issues had difficulty with catheter had been part of the way through his ongoing treatments. Had been developing increasing lower urinary tract symptoms. Had undergone cystoscopy with no major issues or problems discovered on cystoscopy but continued to have increasing issues with urgency frequency lower urinary tract symptoms and bother. Patient presented to the ER was discovered to have a significant obstructing stone. The imaging was reviewed interpreted by myself. Obstructing stone in the distal right ureter causing hydronephrosis. 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 Also extensive interaction and discussion with patient and family. Agree with note as above. Patient's vitals and labs were all reviewed. Pertinent values in the HPI and plan section. Imaging was reviewed interpreted by myself. Agree with read. Vitals were reviewed. Discussed findings extensively with patient and family. Reviewed with nurse practitioner as well as consulting physicians/team. Patient's complicated medical and surgical history was reviewed and summarized above. Patient's surgical, medical, social, and family history were all reviewed with pertinent values as above. Discussed patient's current diagnosis as well as concerns and issues. Reviewed different options moving forward. Discussed potential risks and benefits as well as possible options and concerns. Reviewed potential surgical options and interventions. Discussed potential issues and concerns related to intervention. Risk and benefits were discussed extensively with patient and any available family. Discussed potential risks related to anesthesia. Discussed risks of bleeding infection and injury. Discussed options for conservative measure and maximum expulsion medical therapy and symptom controlled. Discussed ESWL. Discussed Ureteroscopy with extraction and/or laser lithotripsy. Risks and benefits were discussed. Stone free rates were also discussed as well as possibility of multiple procedures. Ureteral stents were discussed as well as post-operative issues and pain management. All questions were answered. Risks and benefits discussed at length for procedure. These include bleeding, infection, injury to surrounding tissues or organs, and risks associated with anesthesia. Patient states understanding and agrees to proceed. Will sign consent and proceed. Plan for Cystoscopy with right ureteroscopy and stone treatment History of Present Illness Attending Physician: Ezra Diamond MD History of Present Illness 69-year-old male with a past medical history of bladder cancer currently undergoing BCG treatments who presented to the ED yesterday with severe right- sided flank pain with associated nausea, rigors, low-grade fever. Due to severe pain, he presented to the ED. A CT abdomen pelvis was performed and notable for a 5 mm obstructing right UVJ stone with mild hydronephrosis. He was afebrile and hemodynamically stable on arrival. Labs were notable for leukocytosis of 14.9 and creatinine 1.46. Urinalysis with 1120 RBC, 2150 WBC, 1+ bacteria. He was given a dose of Rocephin in the ED. He is admitted to medicine service. Anticoagulation placed on hold. Patient was seen at bedside today. Awake and resting in bed on arrival. No acute distress. Denies any noticeable stone passage. Pain is currently well- controlled. Denies fever or chills at present. Voiding without issue. Has been NPO. Allergies Allergy/AdvReac Type Severity Reaction Status Date / Time atorvastatin AdvReac Intermediate Joint Pain Verified 07/24/24 13:49 Home Medications Medication Instructions Recorded Confirmed Type dutasteride 0.5 mg capsule 0.5 mg PO QPM #90 caps 11/16/23 08/23/24 Rx (Avodart) lisinopril 40 mg tablet 40 mg PO QAM #90 tabs 12/22/23 08/23/24 Rx sodium bicarbonate 650 mg tablet 1,300 mg PO DAILY PRN SEE BELOW 01/24/24 08/23/24 History tamsulosin 0.4 mg capsule 0.4 mg PO HS #90 caps 01/31/24 08/23/24 Rx metoprolol succinate 100 mg 150 mg (1.5 x 100 mg) PO BID #270 03/27/24 08/23/24 Rx tablet,extended release 24 hr tabs amlodipine 2.5 mg tablet 2.5 mg PO DAILY #90 tabs 05/08/24 08/23/24 Rx gabapentin 300 mg capsule 300 mg PO HS #30 caps 05/28/24 08/23/24 Rx buspirone 15 mg tablet 15 mg PO BID #180 tabs 07/03/24 08/23/24 Rx colchicine 0.6 mg tablet 0.6 mg PO BID PRN gout 07/16/24 08/23/24 History alprazolam 0.5 mg tablet (Xanax) 0.5 mg PO QAM PRN Anxiety #30 tabs 07/17/24 08/23/24 Rx apixaban 5 mg tablet (Eliquis) 5 mg PO BID #180 tabs 08/14/24 08/23/24 Rx baclofen 10 mg tablet 10 mg PO TID PRN muscle spasm #270 08/18/24 08/23/24 Rx tabs tramadol 50 mg tablet 50 mg PO BID PRN pain #60 tabs 08/21/24 08/23/24 Rx diltiazem HCl 120 mg 120 mg PO UD 08/23/24 08/23/24 History capsule,extended release 24 hr, controlled Patient History Medical History Allergic rhinitis Chronic back pain Heart disease History of anemia Dyslipidemia Environmental and seasonal allergies Bladder cancer (2022) s/p BCG treatment completed chemo 11/2023 Nausea and vomiting after administration of anesthetic agent 35 yr ago but many surgeries since without issues Urinary retention Was seen in ER in June 2021- had romeo catheter placed x 1 weeks- no issues since Romeo catheter removed CKD (chronic kidney disease), stage III follows with Dr. Anaya BPH (benign prostatic hyperplasia) Gout Recent gout episode x 1-2 days- started with left knee pain- now left toe Will check with surgeon's office to see if he can start on Colchicine - will contact PCP if symptoms continue/get worse Atrial fibrillation Dx 2019> follows with Dr. Quinteros > continues with palpitations- on Metoprolol - per cardio- takes extra Metoprolol and symptoms improve On Eliquis Kidney stones Currently under observation Degenerative disc disease Spinal stenosis Anxiety and depression Asthma stable > exercise induced > no res inh use Hypertension Surgical History History of bronchoscopy S/P epidural steroid injection S/P cystoscopy w/ bx and cauterization of re-emerging tumors in bladder "found to be benign" S/P ureteral stent placement 08/18/21 Dr. Thaddeus Anaya- L retrograde pyelogram, L ureteral stent S/P TURP (transurethral resection of prostate) 08/18/21 Dr. Thaddeus Anaya at [facility]; also removed malignant bladder tumors at the same time History of cardiac catheterization 20 YRS AGO= NO STENTS; done in [place] History of colonoscopy with polypectomy History of shoulder surgery R X2 , L X1 History of total left knee replacement History of total right hip arthroplasty (~10/2016) History of fusion of cervical spine C4-C5 ACDF> ROM limited per pt History of lumbar fusion L2-S1 HDW 08/14/19 Dr. Renan Grullon- Removal of posterior instrumentation L4-5; Exploration of fusion L4-5; Lumbar decompression bilateral medial facetect omies and foraminotomies L2-3 L3-4 L5-S1; Posterior spinal fusion L2-3 L3-4 L4-5 L5-S1; Placement posterior segmental instrumentation from L2-S1; Interbody fusion L3-4 and L5-S1; Placement of titanium 11 x 26 mm cage at L3- 4 and 12 x 26 mm cage at L5-S1; Placement of locally harvested morselized autograft in the posterior lateral gutters; Placement infuse collagen sponge, master graft in the posterior lateral gutters and ostial amp and interbody space. History of urologic surgery KIDNEY STONE REMOVAL Family History Father Family history of melanoma Osteoarthritis Hypertension Kidney malignant neoplasm Melanoma Cardiac disorder Myocardial infarction, Onset Age: 30 Mother Family history of colon cancer Denies family history of Ovarian cancer Prostate cancer Breast cancer Colorectal cancer Social History Smoking Status: Never smoker Second Hand Exposure: No; Do You Dip or Chew Tobacco: No; Hx Alcohol Use: No Hx Substance Use: No Preferred Language: Greenlandic Communication Ability: Effective Visual Impairment: No Limitations Hearing Ability: Hard of Hearing Pet Sitter Required: No Beliefs That Will Affect Care: None marital status: Current Living Situation: Spouse Current Living Situation Comment: SPOUSE current occupational status: retired 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 How many Children do You have: 0 Other Information That Helps Us Care for You: No Feels Safe at Home: Yes Safety Concerns: Feels Safe At This Time Childhood Exposure to Second-Hand Smoke: Yes Diet: low carbohydrate and regular Diet Comment: low added sugars caffeine: Yes Dental Care, Regularly: No Physical Activity Frequency: Daily Physical Activity Frequency Comment: walks 3 times a day Seatbelt Use: always Sunscreen Use: Yes Assistive Devices: Cane and Walker Review of Systems Review of Systems: All systems reviewed & are unremarkable except as noted in HPI & below Physical Exam Constitutional: no acute distress Respiratory: no respiratory distress and no labored breathing Musculoskeletal: Head/Neck/Chest: normocephalic Skin: No visible rashes or lesions to exposed skin areas Neurologic: moves all extremities and awake Psychiatric: A+Ox3, euthymic affect Results & Data Vital Signs (Past 12 Hours) Vital Signs Temp Pulse Pulse Resp BP BP Pulse Ox 08/24/24 07:19 36.9 C 64 16 136/74 92 08/24/24 04:30 37.7 C H 70 12 169/82 H 92 O2 Del Method 08/24/24 07:19 Room Air 08/24/24 04:30 Room Air PG Care Time/CCT Total # of Minutes Spent Total Time Spent with Patient: Total time spent is greater than 50% in coordination of care (as documented) at patient's floor/unit and/or counseling patient: Coding Level of Care Code 21849 INT INP/OBS CARE 255MIN Diagnoses Ureteral stone N20.1 Renal colic on right side N23 Hydronephrosis N13.2 Hydronephrosis type: with renal calculous obstruction (3) Hydronephrosis Hydronephrosis type: with renal calculous obstruction Qualified Code(s): N13.2 - Hydronephrosis with renal and ureteral calculous obstruction
--- NOTE | 2024-08-24 15:26 | Anesthesiology Consultation ---
Date of Service August 24, 2024 Assessment & Plan Chart Review Chart Review: Acceptable Risk for Surgery and Patient NOT seen in Pre Admission Testing Consults Requested none ASA ASA4 Proposed Anesthesia Anesthesia Type: General History Surgery Operation Date: 08/24/24 09:10 Proposed Procedures p Cystoscopy, Right Retrograde Pyelogram, Right Stent Placement, Possible Ureteroscopy, Possible Laser Lithotripsy Stone Treatment - Thaddeus Anaya, DO Height/Weight Height: 5 ft 10 in Weight: 117.6 kg Allergies Allergy/AdvReac Type Severity Reaction Status Date / Time atorvastatin AdvReac Intermediate Joint Pain Verified 07/24/24 13:49 Medications Home Medications Medication Instructions Recorded Confirmed Last Taken dutasteride 0.5 mg capsule 0.5 mg PO QPM #90 caps 11/16/23 08/23/24 07/15/24 (Avodart) lisinopril 40 mg tablet 40 mg PO QAM #90 tabs 12/22/23 08/23/24 07/16/24 sodium bicarbonate 650 mg tablet 1,300 mg PO DAILY PRN SEE BELOW 01/24/24 08/23/24 07/11/24 tamsulosin 0.4 mg capsule 0.4 mg PO HS #90 caps 01/31/24 08/23/24 07/15/24 metoprolol succinate 100 mg 150 mg (1.5 x 100 mg) PO BID #270 03/27/24 08/23/24 07/16/24 tablet,extended release 24 hr tabs amlodipine 2.5 mg tablet 2.5 mg PO DAILY #90 tabs 05/08/24 08/23/24 07/16/24 gabapentin 300 mg capsule 300 mg PO HS #30 caps 05/28/24 08/23/24 07/15/24 buspirone 15 mg tablet 15 mg PO BID #180 tabs 07/03/24 08/23/24 07/16/24 colchicine 0.6 mg tablet 0.6 mg PO BID PRN gout 07/16/24 08/23/24 07/16/24 alprazolam 0.5 mg tablet (Xanax) 0.5 mg PO QAM PRN Anxiety #30 tabs 07/17/24 08/23/24 Unknown apixaban 5 mg tablet (Eliquis) 5 mg PO BID #180 tabs 08/14/24 08/23/24 Unknown baclofen 10 mg tablet 10 mg PO TID PRN muscle spasm #270 08/18/24 08/23/24 Unknown tabs tramadol 50 mg tablet 50 mg PO BID PRN pain #60 tabs 08/21/24 08/23/24 Unknown diltiazem HCl 120 mg 120 mg PO UD 08/23/24 08/23/24 Unknown capsule,extended release 24 hr, controlled Active Medications Generic Name Dose Route Start Last Admin Trade Name Freq PRN Reason Stop Dose Admin Acetaminophen 650 mg 08/23/24 21:26 08/24/24 12:34 Acetaminophen 325 Mg Tab PO 09/22/24 21:25 650 mg Q4H PRN Administration pain/fever Amlodipine Besylate 2.5 mg 08/24/24 09:00 08/24/24 08:23 Amlodipine Besylate 5 Mg Tab PO 09/23/24 08:59 2.5 mg DAILY RADHA Administration Buspirone HCl 15 mg 08/23/24 21:26 08/24/24 08:23 Buspirone 15 Mg Tab PO 09/22/24 21:25 15 mg BID RADHA Administration Finasteride 0.5 mg 08/23/24 21:26 08/23/24 22:31 Finasteride 5 Mg Tab PO 09/22/24 21:25 0.5 mg QPM RADHA Administration Gabapentin 300 mg 08/23/24 21:26 08/23/24 22:30 Gabapentin 300 Mg Cap PO 09/22/24 21:25 300 mg HS RADHA Administration Lactated Ringer's 1,000 mls @ 100 mls/hr 08/23/24 21:26 08/24/24 09:29 Lr IV 09/22/24 21:25 110 mls/hr .Q10H RADHA Administration Ceftriaxone Sodium 2,000 mg in 50 mls @ 100 mls/hr 08/23/24 22:00 08/23/24 23:05 Rocephin IV 08/28/24 21:59 Infused Q24H RADHA Infusion Metoprolol Succinate 150 mg 08/24/24 04:15 08/24/24 04:29 Metoprolol Succ 50mg Ext Rel Tab PO 09/23/24 04:14 150 mg BID@0400,1600 RADHA Administration Oxycodone HCl 5 mg 08/23/24 21:26 08/24/24 02:08 Oxycodone Hcl Ir 5 Mg Tab (Immediate Release) PO 09/06/24 21:25 5 mg Q8 PRN Administration Moderate Pain (Scale 4, 5, 6) Tamsulosin HCl 0.4 mg 08/23/24 21:26 08/23/24 22:29 Tamsulosin Hcl 0.4 Mg Cap PO 09/22/24 21:25 0.4 mg HS RADHA Administration Past Medical History Medical History Allergic rhinitis Chronic back pain Heart disease History of anemia Dyslipidemia Environmental and seasonal allergies Bladder cancer (2022) s/p BCG treatment completed chemo 11/2023 Nausea and vomiting after administration of anesthetic agent 35 yr ago but many surgeries since without issues Urinary retention Was seen in ER in June 2021- had romeo catheter placed x 1 weeks- no issues since Romeo catheter removed CKD (chronic kidney disease), stage [address] Anaya BPH (benign prostatic hyperplasia) Gout Recent gout episode x 1-2 days- started with left knee pain- now left toe Will check with surgeon's office to see if he can start on Colchicine - will contact PCP if symptoms continue/get worse Atrial fibrillation Dx 2019> follows with Dr. Quinteros > continues with palpitations- on Metoprolol - per cardio- takes extra Metoprolol and symptoms improve On Eliquis Kidney stones Currently under observation Degenerative disc disease Spinal stenosis Anxiety and depression Asthma stable > exercise induced > no res inh use Hypertension Exercise / Class Metabolic Activity III < 4 Walking/Shop/Light housework Past Family History Family History Father Family history of melanoma Osteoarthritis Hypertension Kidney malignant neoplasm Melanoma Cardiac disorder Myocardial infarction, Onset Age: 30 Mother Family history of colon cancer Denies family history of Ovarian cancer Prostate cancer Breast cancer Colorectal cancer Past Surgical History Surgical History History of bronchoscopy S/P epidural steroid injection S/P cystoscopy w/ bx and cauterization of re-emerging tumors in bladder "found to be benign" S/P ureteral stent placement 08/18/21 Dr. Thaddeus Anaya- L retrograde pyelogram, L ureteral stent S/P TURP (transurethral resection of prostate) 08/18/[address] Dr. Th[address]deus Anaya at [facility]; also removed malignant bladder tumors at the same time History of cardiac catheterization 20 YRS AGO= NO STENTS; done in [place] History of colonoscopy with polypectomy History of shoulder surgery R X2 , L X1 History of total left knee replacement History of total right hip arthroplasty (~10/2016) History of fusion of cervical spine C4-C5 ACDF> ROM limited per pt History of lumbar fusion L2-S1 HDW 08/14/19 Dr. Renan Grullon- Removal of posterior instrumentation L4-5; Exploration of fusion L4-5; Lumbar decompression bilateral medial facetectomies and foraminotomies L2-3 L3-4 L5-S1; Posterior spinal fusion L2- 3 L3-4 L4-5 L5-S1; Placement posterior segmental instrumentation from L2-S1; Interbody fusion L3-4 and L5-S1; Placement of titanium 11 x 26 mm cage at L3- 4 and 12 x 26 mm cage at L5-S1; Placement of locally harvested morselized autograft in the posterior lateral gutters; Placement infuse collagen sponge, master graft in the posterior lateral gutters and ostial amp and interbody space. History of urologic surgery KIDNEY STONE REMOVAL Past Anesthesia History No Hx of Anesthesia Complications and No Family Hx of Anesthesia Complications History of PONV No Hx of PONV and No Hx of Motion Sickness Social History Smoking Status: Never smoker Do You Dip or Chew Tobacco: No Hx Alcohol Use: No Alcohol type: beer alcohol intake frequency: holidays/special occasions only Hx Substance Use: No substance use type: does not use Physical Exam Vital Signs Last Vital Signs Temp 37.4 C 08/24/24 13:56 Pulse 62 08/24/24 13:56 Resp 16 08/24/24 13:56 BP 147/78 H 08/24/24 13:56 Pulse Ox 93 08/24/24 13:56 O2 Del Method Room Air 08/24/24 13:56 Testing Laboratory Results 08/24/24 07:49 08/24/24 07:49 Urine Color See Comment 08/23/24 16:11 Urine Appearance Slightly Cloudy (Clear) 08/23/24 16:11 Urine pH Not Reportable 08/23/24 16:11 Ur Specific [place] 1.012 (1.000-1.030) 08/23/24 16:11 Urine Protein Not Reportable 08/23/24 16:11 Urine Glucose (UA) Not Reportable 08/23/24 16:11 Urine Ketones Not Reportable 08/23/24 16:11 Urine Nitrite Not Reportable 08/23/24 16:11 Ur Leukocyte Esterase Not Reportable 08/23/24 16:11 Urine RBC 11-20 /hpf (0-2) H 08/23/24 16:11 Urine WBC 21-50 /hpf (0-5) H 08/23/24 16:11 Ur Epithelial Cells 3-5 /hpf (0-2) H 08/23/24 16:11 08/24/24 08/24/24 11:53 05:59 POC Glucose 81 104 H Electrocardiogram Date: 07/16/24 Findings: + SB @ (@ 51) Chest X-Ray Date: 07/16/24 Findings: + NAD, + cardiomegaly and + other (hypoinflation) Stress Test Date: 06/20/21 Type: DSE Findings: + WNL and + did not achieved max HR Resting EF: 60% Valvular Disease: no significant valvular disease LVH-mod.
[2024-08-24] MEDS ORDERED: DEXAMETHASONE SOD INJ 4 MG/ML VIAL ONE (17:31)
[2024-08-24] MEDS ORDERED: LIDOCAINE 2% 2 ML VIAL/AMP(20MG/ML) INFIL ONE (17:31)
[2024-08-24] MEDS ORDERED: PROPOFOL IV EMULSION 10 MG/ML 20 ML VIAL IV ONE (17:31)
[2024-08-24] MEDS ORDERED: ONDANSETRON INJ 2 MG/ML 2 ML VIAL ONE (17:31)
[2024-08-24] MEDS ORDERED: fentaNYL citrate PF 100 MCG/2 ML VIAL ONE (17:31)
[2024-08-24] MEDS ORDERED: ePHEDrine sulfate 50 MG/ML AMP ONE (17:54)
[2024-08-24] MEDS ORDERED: PHENYLEPHRINE 100MCG/ML 10ML SYR IV ONE (18:05)
--- NOTE | 2024-08-24 18:15 | Operative Report ---
PG Post Operative Report Pre & Post Diagnosis Obstructing Right Stone Same Operation Date: 08/24/24 09:10 <No data on this case meets the specified criteria> I identified the patient and participated in the time-out.: Yes Procedure Cystoscopy with right ureteroscopy, laser lithotripsy, ureteral dilation, stone basket extraction, stent placement, retrograde pyelogram, and aspiration of urine. Operation Date: 08/24/24 09:10 <No data on this case meets the specified criteria> Surgeon Thaddeus Anaya, II, DO Weight Loss Counselor None Estimated Blood Loss 1 Findings Consistent with Post-Op Diagnosis Large debris in right renal pelvis. Stricture of UVJ on right dilated. Stone destroyed to dust and small fragments and larger fragments removed. Specimens Stone Fragments Right ureter Urine Right kidney Drains 6 Fr x 24 cm Right Anesthesia Type General Complications none Disposition Disposition: Recovery Room Indications Patient with bothersome stones. Risks and benefits discussed at length. Description of Procedure Patient was consented and brought back to the operating room. Patient was placed under anesthesia in the supine position and moved to the dorsal lithotomy position. Patient was prepped and draped in the regular sterile fashion. A time out was completed. A 30degree Cystoscope was placed into the bladder and the entire bladder was examined. The UO's were identified. The UO was cannulized with a catheter and a retrograde pyelogram was completed. A wire was then placed. A significant narrowing was noted at the UVJ. This was found to be a stricture. It was dilated after dilation the wire was maintained. The Rigid ureteroscope was taken into the ureter. The stone was identified. A laser fiber was selected and the stones were pulverized to dust and small fragments. Larger fragments were grasped and removed and sent for analysis. The entire area was once again examined. No residual large fragments or areas of concern were noted. The scope advanced up into the renal pelvis. At the section of the UPJ a large amount of debris was noted to be sitting within the renal pelvis. Urine was aspirated directly from the renal pelvis and sent for urine micro analysis. Will send for culture to rule out active infection. The scope was slowly removed with the wire left in place. Contrast was placed through the scope for a pyelogram to assist in stent placement. The entire ureter was examined as the scope was slowly removed. No obstructions or other areas of concern were noted. With the wire in place, a 6 Fr Double J stent was placed. It was confirmed with fluoroscopy. With the stent in place, the bladder was emptied. The scope was removed. The patient was cleaned, aroused from anesthesia, and transferred to the pacu in stable condition having tolerated the procedure well with no complications. I was present and participated in all aspects of the procedure. The patient will be monitored in the PACU until transferred. Will plan to maintain the stent for approximately 1 to 2 weeks and remove in the office. I attest to the content of the Intraoperative Record and any orders documented therein. Any exceptions are noted below.
[2024-08-24] MEDS ORDERED: diazePAM 5 MG/ML 10ML VIAL IV PRN (19:13)
[2024-08-24] MEDS: METOPROLOL TARTRATE 1 MG/ML VIAL IV STA (19:14)
[2024-08-24] MEDS: ACETAMINOPHEN 1,000 MG/100 ML VIAL IV STA (19:20)
--- NOTE | 2024-08-24 19:45 | Anesthesiology Progress Note ---
Date of Service August 24, 2024 Anesthesia Post Procedure Vital Signs Vital Signs: Temp Pulse Pulse Pulse Resp BP BP 08/24/24 19:40 90 24 143/67 H 08/24/24 19:30 96 H 26 H 142/78 H 08/24/24 19:20 105 H 20 176/90 H 08/24/24 19:10 111 H 20 177/93 H 08/24/24 19:00 117 H 28 H 178/104 H 08/24/24 18:50 102.2 F H 107 H 30 H 159/135 H 08/24/24 18:40 90 23 141/54 H 08/24/24 18:30 89 23 133/65 08/24/24 18:23 98.2 F 87 23 138/64 08/24/24 16:42 98.8 F 67 18 113/60 08/24/24 13:56 99.3 F 62 16 147/78 H 08/24/24 07:19 98.4 F 64 16 136/74 08/24/24 04:30 99.9 F H 70 12 169/82 H 08/24/24 00:08 99.3 F 62 18 146/75 H 08/23/24 23:14 99.9 F H 68 18 152/77 H 08/23/24 20:00 63 16 128/66 Pulse Ox O2 Del Method O2 Flow Rate 08/24/24 19:40 94 Nasal Cannula 3 08/24/24 19:30 94 Nasal Cannula 3 08/24/24 19:20 92 Nasal Cannula 3 08/24/24 19:10 94 Nasal Cannula 3 08/24/24 19:00 93 Nasal Cannula 3 08/24/24 18:50 97 Nasal Cannula 3 08/24/24 18:40 97 Oxymask 5 08/24/24 18:30 95 Oxymask 9 08/24/24 18:23 96 Oxymask 9 08/24/24 16:42 93 Room Air 08/24/24 13:56 93 Room Air 08/24/24 07:19 92 Room Air 08/24/24 04:30 92 Room Air 08/24/24 00:08 93 Room Air 08/23/24 23:14 95 Room Air 08/23/24 20:00 95 Pain Intensity Right Flank: Pain Intensity: 6 Transfer of Care Handoff Completed per policy Notes Mental Status: alert / awake / arousable and participated in evaluation Patient Amnestic to Procedure: Yes Nausea / Vomiting: adequately controlled Pain: adequately controlled Airway Patency, RR, SpO2: stable & adequate BP & HR: stable & adequate Hydration State: stable & adequate Anesthetic Complications: no major complications apparent and Pt Satisfied with anesthetic care Notes: agitated prior to transport, pt in afib with rate in 100's, metoprolol given. patient noted to be febrile, IV tylenol given. Patient stated he was anxious about nurse in room upstairs, patient reassured, denied CP SOB, discharged from PACU
[2024-08-24] MEDS: METOPROLOL TARTRATE 1 MG/ML VIAL IV ONE (20:15)
[2024-08-24] MEDS: ACETAMINOPHEN 1000 MG/100 ML IV IV ONE (20:16)
--- NOTE | 2024-08-24 20:55 | Fluoroscopy Report ---
FL retrograde includes kub CLINICAL HISTORY: STENT TECHNIQUE: 3 views were obtained with the C-arm in the OR with the above procedure. Total fluoroscopy time was 25.7 seconds. Radiation dose was 11.2 mGy. Comparison: Comparison is made to CT abdomen pelvis 08/23/2024 FINDINGS/IMPRESSION: Intraoperative images were obtained of right retrograde pyelogram and stent plac ement. In the final images, the stent is in satisfactory position. Please correlate with intraoperative fluoroscopy and operative report. ACT 112: Negative or not required by law. Electronically signed by: Santo Hubbard M.D. 08/24/2024 8:53 PM
[2024-08-24] MEDS: ALPRAZolam 0.5 MG TABLET PO PRN (21:04)
[2024-08-24 23:38] LABS: Hematocrit (blood only) 40.4 % (42.0-52.0); Hemoglobin 13.3 g/dl (14.0-18.0); Mean Corpuscular Hemoglobin 29.3 pg (25.0-34.0); Mean Corpuscular Hgb Conc 32.9 g/dL (32.0-36.0); Mean Platelet Volume 10.9 fL (9.4-12.4); Platelet Count 125 K/uL (130-400); RDW Coefficient of Variation 13.5 % (11.5-14.5); Red Blood Count 4.54 M/uL (4.70-6.10); White Blood Count 10.08 K/ul (4.8-10.8)
[2024-08-25 00:11] LABS: Albumin Globulin Ratio 1.3 (0.9-2); Albumin Level 3.4 gm/dl (3.4-5.0); BUN Creatinine Ratio 11.7 (10-20); Bilirubin,Total 0.8 mg/dl (0.2-1.0); Globulin 2.6 gm/dl (2.5-4.0); Magnesium 1.5 mg/dl (1.7-2.4); Potassium 4.2 mmol/L (3.5-5.1)
[2024-08-25 00:17] LABS: Basophils # (auto) 0.01 K/uL (0.00-0.20); Basophils % (auto) 0.1 %; Eosinophils # (auto) 0.01 K/uL (0.00-0.50); Eosinophils % (auto) 0.1 %; Immature Granulocytes # (auto) 0.09 K/uL (0.01-0.20); Immature Granulocytes % (auto) 0.9 %; Lymphocytes # (auto) 0.09 K/uL (1.20-3.40); Lymphocytes % (auto) 0.9 %; Monocytes # (auto) 0.35 K/uL (0.11-0.59); Monocytes % (auto) 3.5 %; Neutrophils # (auto) 9.53 K/uL (1.40-6.50); Neutrophils % (auto) 94.5 %
--- NOTE | 2024-08-25 01:01 | Communication Note ---
Date of Service: August 25, 2024 Was notified by nursing at approximately 20:00 that Mr. Newton had returned from PACU to his room on medical floor and was tachycardic, febrile, and BP slightly low. Patient has a history of atrial fibrillation, was given IV lopressor in PACU. I ordered an EKG which showed atrial fibrillation with RVR, HR was 115-130s. I notified his nurse that he would need to be transferred to a unit with telemetry monitoring, transfer placed to PCU. I also ordered stat labs including CBC, metabolic panel, magnesium. Patient's magnesium level was found to be 1.5, IV mag sulfate repletion was ordered. 500mL bolus of IVF ordered. Nursing noted that patient was normal sinus rhythm on lunchroom monitor. At approximately 05:30, telemetry showed runs of vtach vs afib with HR in 150s. PO metoprolol given at 04:17. Dr. Kaplan and I went to bedside, two EKGs obtained which showed sinus tach vs afib. I [facility], recommended starting amiodarone at 1/2 bolus dose (75) and then start amiodarone drip. Latest BP at time of starting drip os 127/72. Cardiology consult was placed at this time. Resident Activity Tracking Resident Involvement: Resident Care Provided Care Provided: Adult [facility]
[2024-08-25] MEDS: LACTATED RINGER'S 500 ML IV ONE (01:07)
[2024-08-25] MEDS: MAGNESIUM SULFATE / D5W 1 GM/100 ML BAG IV SCH (01:07)
[2024-08-25 04:37] LABS: Hematocrit (blood only) 39.5 % (42.0-52.0); Hemoglobin 12.6 g/dl (14.0-18.0); Mean Corpuscular Hemoglobin 28.8 pg (25.0-34.0); Mean Corpuscular Hgb Conc 31.9 g/dL (32.0-36.0); Mean Corpuscular Volume 90.4 fL (80.0-100.0); Platelet Count 123 K/uL (130-400); RDW Coefficient of Variation 13.4 % (11.5-14.5); RDW Standard Deviation 44.4 fL (36.4-46.3); Red Blood Count 4.37 M/uL (4.70-6.10); White Blood Count 12.59 K/ul (4.8-10.8)
[2024-08-25 04:50] LABS: BUN Creatinine Ratio 11.3 (10-20); Calcium 8.9 mg/dl (8.6-10.3); Creatinine Clr Calc Pharmacy 47.5 ml/min; Potassium 4.7 mmol/L (3.5-5.1)
[2024-08-25 05:01] LABS: Basophils # (auto) 0.02 K/uL (0.00-0.20); Basophils % (auto) 0.2 %; Eosinophils # (auto) 0.01 K/uL (0.00-0.50); Eosinophils % (auto) 0.1 %; Immature Granulocytes # (auto) 0.09 K/uL (0.01-0.20); Immature Granulocytes % (auto) 0.7 %; Lymphocytes # (auto) 0.09 K/uL (1.20-3.40); Lymphocytes % (auto) 0.7 %; Monocytes # (auto) 0.49 K/uL (0.11-0.59); Monocytes % (auto) 3.9 %; Neutrophils # (auto) 11.89 K/uL (1.40-6.50); Neutrophils % (auto) 94.4 %; Polychromasia 1+
[2024-08-25] MEDS ORDERED: AMIODARONE IV BOLUS & DRIP IV STA (05:47)
[2024-08-25] MEDS ORDERED: 0.2 MICRON FILTER SET 1 EACH IV STA (05:47)
[2024-08-25] MEDS ORDERED: STAT IV Infusion **Titration per Protocol STA (05:47)
[2024-08-25] MEDS ORDERED: AMIODARONE / D5W 150 MG/100 ML BAG IV STA (05:47)
[2024-08-25] MEDS: DEXTROSE IV STA (06:15)
[2024-08-25] MEDS: AMIODARONE IV STA (06:15)
[2024-08-25] MEDS: AMIODARONE / D5W 360 MG/200 ML BAG IV ONE (06:24)
[2024-08-25 07:40] LABS: Toxic Vacuolation 2+
--- NOTE | 2024-08-25 10:01 | Cardiology Consultation ---
Date of Consultation August 25, 2024 Assessment & Plan (1) Paroxysmal atrial fibrillation: (2) LBBB (left bundle branch block): (3) Borderline low blood pressure determined by examination: (4) Fever: (5) Anxiety: (6) Kidney stones: Plan 69-year-old man with known history of paroxysmal atrial fibrillation who developed recurrent atrial fibrillation with new left bundle branch block (intermittent, possibly rate related) in the context of postoperative fever, borderline hypotension, hypomagnesemia, and anxiety. Given his borderline blood pressure and symptomatic tachycardia, feel that aggressive rhythm management is warranted. Agree with IV amiodarone, along with magnesium repletion this has successfully returned his rhythm to sinus. Would continue IV amiodarone throughout today and switch to oral amiodarone tomorrow (200 mg twice daily would be reasonable since he will receive much of a loading dose intravenously today). He still has dark urine/potential hematuria, since his rhythm has returned to sinus could hold off further on restarting his anticoagulation with apixaban. Once urine clears would restart apixaban 5 mg twice daily. If he develops recurrent atrial fibrillation which is refractory and last for more than 24 hours, would need to reassess to decide whether to restart anticoagulation before urine completely clears. Agree with resuming his PRN alprazolam, he notes his anxiety and finds this medication quite helpful. Dr. Quinteros knows the patient from outpatient encounters and will be rounding this weekend. History of Present Illness Reason for Consultation: afib RVR, started on amio Requesting Physician: Ezra Diamond MD Attending Physician: Ezra Diamond MD History of Present Illness 69-year-old man with history of paroxysmal atrial fibrillation (ap ixaban/metoprolol as outpatient meds), previously negative ischemic workup (nuclear stress 2008, dobutamine 2020), hypertension, anxiety, and nephrolithiasis who underwent laser lithotripsy for nephrolithiasis yesterday and subsequently developed atrial fibrillation with rapid ventricular response and apparent rate related left bundle branch block. At recent baseline, he can walk the dog with no dyspnea or chest discomfort. He does note intermittent tachypalpitations which have been occurring with increased frequency in recent weeks, sometimes he notes that he can actually walk the dog to revert his rhythm to sinus, other times the dysrhythmia persists. He often experiences a "feeling that I can't catch my breath" and some chest heaviness when he has atrial fibrillation, but as noted prior ischemic workups have been negative. After his urologic procedure yesterday he was noted to be febrile, tachycardic, with borderline blood pressure. ECG shows atrial fibrillation with rapid ve ntricular response and apparent rate related left bundle branch block intermittently (less likely PVCs and runs of ventricular tachycardia). He was noted to have a magnesium of 1.5, IV repletion initiated. He did note symptoms of tachypalpitations and his usual dyspnea and chest/neck mild discomfort. He was placed on intravenous amiodarone after receiving a bolus of 75 mg, subsequently his rhythm returned to sinus early this morning and dysrhythmias have not returned. Aside from feeling somewhat anxious, he denied any somatic complaints at rest at the time of my evaluation this morning. Allergies Allergy/AdvReac Type Severity Reaction Status Date / Time atorvastatin AdvReac Intermediate Joint Pain Verified 07/24/24 13:49 Home Medications Medication Instructions Recorded Confirmed Type dutasteride 0.5 mg capsule 0.5 mg PO QPM #90 caps 11/16/23 08/23/24 Rx (Avodart) lisinopril 40 mg tablet 40 mg PO QAM #90 tabs 12/22/23 08/23/24 Rx sodium bicarbonate 650 mg tablet 1,300 mg PO DAILY PRN SEE BELOW 01/24/24 08/23/24 History tamsulosin 0.4 mg capsule 0.4 mg PO HS #90 caps 01/31/24 08/23/24 Rx metoprolol succinate 100 mg 150 mg (1.5 x 100 mg) PO BID #270 03/27/24 08/23/24 Rx tablet,extended release 24 hr tabs amlodipine 2.5 mg tablet 2.5 mg PO DAILY #90 tabs 05/08/24 08/23/24 Rx gabapentin 300 mg capsule 300 mg PO HS #30 caps 05/28/24 08/23/24 Rx buspirone 15 mg tablet 15 mg PO BID #180 tabs 07/03/24 08/23/24 Rx colchicine 0.6 mg tablet 0.6 mg PO BID PRN gout 07/16/24 08/23/24 History alprazolam 0.5 mg tablet (Xanax) 0.5 mg PO QAM PRN Anxiety #30 tabs 07/17/24 08/23/24 Rx apixaban 5 mg tablet (Eliquis) 5 mg PO BID #180 tabs 08/14/24 08/23/24 Rx baclofen 10 mg tablet 10 mg PO TID PRN muscle spasm #270 08/18/24 08/23/24 Rx tabs tramadol 50 mg tablet 50 mg PO BID PRN pain #60 tabs 08/21/24 08/23/24 Rx diltiazem HCl 120 mg 120 mg PO UD 08/23/24 08/23/24 History capsule,extended release 24 hr, controlled Patient History Medical History (Updated 08/25/24 @ 09:52 by Cristopher Pastrana MD) Hyperkalemia Allergic rhinitis Chronic back pain Heart disease History of anemia Dyslipidemia Environmental and seasonal allergies Bladder cancer (2022) s/p BCG treatment completed chemo 11/2023 Nausea and vomiting after administration of anesthetic agent 35 yr ago but many surgeries since without issues Urinary retention Was seen in ER in June 2021- had romeo catheter placed x 1 weeks- no issues since Romeo catheter removed CKD (chronic kidney disease), stage III follows [address] Dr. Anaya BPH (benign prostatic hyperplasia) Gout Recent gout episode x 1-2 days- started with left knee pain- now left toe Will check with surgeon's office to see if he can start on Colchicine - will contact PCP if symptoms continue/get worse Atrial fibrillation Dx 2019> follows with Dr. Quinteros > continues with palpitations- on Metoprolol - per cardio- takes extra Metoprolol and symptoms improve On Eliquis Kidney stones Currently under observation Degenerative disc disease Spinal stenosis Anxiety and depression Asthma stable > exercise induced > no res inh use Hypertension Surgical History History of bronchoscopy S/P epidural steroid injection S/P cystoscopy w/ bx and cauterization of re-emerging tumors in bladder "found to be benign" S/P ureteral stent placement 08/18/21 Dr. Thaddeus Anaya- L retrograde pyelogram, L ureteral stent S/P TURP (transurethral resection of prostate) 08/18/21 Dr. Thaddeus Anaya at [facility]; also removed malignant bladder tumors at the same time History of cardiac catheterization 20 YRS AGO= NO STENTS; done in [place] History of colonoscopy with polypectomy History of shoulder surgery R X2 , L X1 History of total left knee replacement History of total right hip arthroplasty (~10/2016) History of fusion of cervical spine C4-C5 ACDF> ROM limited per pt History of lumbar fusion L2-S1 HDW 08/14/19 Dr. Renan Grullon- Removal of posterior instrumentation L4-5; Exploration of fusion L4-5; Lumbar decompression bilateral medial facetectomies and foraminotomies L2-3 L3-4 L5-S1; Posterior spinal fusion L2- 3 L3-4 L4-5 L5-S1; Placement posterior segmental instrumentation from L2-S1; Interbody fusion L3-4 and L5-S1; Placement of titanium 11 x 26 mm cage at L3- 4 and 12 x 26 mm cage at L5-S1; Placement of locally harvested morselized autograft in the posterior lateral gutters; Placement infuse collagen sponge, master graft in the posterior lateral gutters and ostial amp and interbody space. History of urologic surgery KIDNEY STONE REMOVAL Family History Father Family history of melanoma Osteoarthritis Hypertension Kidney malignant neoplasm Melanoma Cardiac disorder Myocardial infarction, Onset Age: 30 Mother Family history of colon cancer Denies family history of Ovarian cancer Prostate cancer Breast cancer Colorectal cancer Social History Smoking Status: Never smoker Second Hand Exposure: No; Do You Dip or Chew Tobacco: No; Hx Alcohol Use: No Hx Substance Use: No Preferred Language: Icelandic Communication Ability: Effective Visual Impairment: No Limitations Hearing Ability: Hard of Hearing 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 Beliefs That Will Affect Care: None marital status: Current Living Situation: Spouse Current Living Situation Comment: SPOUSE current occupational status: retired 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 Tmax 101.9, he remains febrile currently. BP 99/58 mmHg. Pulse 59 bpm and regular without ectopy currently. Respirations 20 but unlabored. Skin: no ecchymoses or generalized lesions. HEENT: unremarkable. Neck: JVP at the clavicle at 90 degrees, no carotid bruits. Lungs: clear. Cardiac: regular rhythm, normal S1-2, no murmur. Abdomen: benign. Extremities: no edema, pulses intact. Neurologic: normal affect and conversation, nonfocal. Normal Results & Data Laboratory Results WBC 12.59, hemoglobin 12.6, platelet count 123,000. Sodium 135, potassium 4.7, BUN 21, creatinine 1.86 (1.88 yesterday). As noted, magnesium was 1.5 yesterday, 2.0 today. Diagnostic Findings Initial ECG yesterday was poor quality but was suggestive of atrial flutter with 2-1 block and left bundle branch block, ventricular rate 143 bpm. A second ECG was better quality and also suggested atrial fibrillation or atrial flutter at 138 bpm with left bundle branch block. PG Care Time/CCT Total # of Minutes Spent Total Time Spent with Patient: Total time spent is greater than 50% in coordination of care (as documented) at patient's floor/unit and/or counseling patient: Coding Level of Care Code 87313 IN/OBS CONSULT LVL 4,60M Diagnoses Paroxysmal atrial fibrillation I48.0 LBBB (left bundle branch block) I44.7 Borderline low blood pressure determined by examination R03.1 Fever R50.9 Anxiety F41.9 Kidney stones N20.0
--- NOTE | 2024-08-25 10:27 | Electrocardiogram Report ---
Test Reason : Blood Pressure : */* mmHG Vent. Rate : 143 BPM Atrial Rate : 117 BPM P-R Int : 178 ms QRS Dur : 118 ms QT Int : 292 ms P-R-T Axes : 96 -27 117 degrees QTcB Int : 450 ms Poor data quality, interpretation may be adversely affected Probable Atrial flutter Left bundle branch block Abnormal ECG When compared with ECG of 16-Jul-2024 14:30, HR has increased by 92 bpm Sinus rhythm no longer present Left bundle branch block now present Confirmed by Cristopher Pastrana ([id number]) on 08/25/2024 10:27:01 AM Referred By: REFERRED SELF Confirmed By: Cristopher Pastrana
--- NOTE | 2024-08-25 10:32 | Electrocardiogram Report ---
Test Reason : Blood Pressure : */* mmHG Vent. Rate : 138 BPM Atrial Rate : 46 BPM P-R Int : * ms QRS Dur : 126 ms QT Int : 328 ms P-R-T Axes : * -29 148 degrees QTcB Int : 496 ms Atrial flutter vs. Atrial fibrillation with rapid ventricular response Left bundle branch block Abnormal ECG When compared with ECG of 24-Aug-2024 19:12, No significant change Confirmed by Cristopher Pastrana ([id number]) on 08/25/2024 10:32:16 AM Referred By: REFERRED SELF Confirmed By: Cristopher Pastrana
--- NOTE | 2024-08-25 10:41 | XRay Report ---
XR chest 1V portable HISTORY: 69 years-old Male new atrial fib, hypoxia acute chest pain with hypoxia COMPARISON: 07/16/2024 TECHNIQUE: AP view of the chest FINDINGS: Cardiac silhouette is enlarged. Hypoinflation with bibasilar atelectasis again noted. No pneumothorax , large pleural effusion or overt pulmonary edema. Degenerative changes of the shoulders and spine. C ervical spinal fusion hardware. IMPRESSION: Hypoinflation without acute process of the chest. ACT 112: Negative or not required by law. The above report was generated using voice recognition software. It may contain grammatical, syntax o r spelling errors. Electronically signed by: Kike Mari M.D. 08/25/2024 10:39 AM
[2024-08-25] MEDS ORDERED: ALPRAZolam 0.5 MG TABLET PO PRN (11:34)
--- NOTE | 2024-08-25 11:42 | Hospitalist Progress Note ---
Date of Service August 25, 2024 Assessment & Plan (1) Ureteral stone: Plan: Right UPJ stone POA. Appreciate urology consultation and recommendations. He underwent cystoscopy last evening with right ureteral stent placement, ureteral dilatation, and laser lithotripsy of the stone. (2) Acute UTI (urinary tract infection): Plan: Serratia isolated. Sensitive to Rocephin, day 3 (3) Hydronephrosis: Plan: Right sided. Mild. Will eventually resolve (4) BARB (acute kidney injury): Plan: On chronic kidney disease stage III. Creatinine has crept up to 1.8. Continue IV fluids. Monitor urine output. Serial labs (5) Paroxysmal atrial fibrillation: Plan: He had recurrent atrial fibrillation with rapid ventricular rate last evening after the cystoscopy procedure. He is now on an amiodarone drip and appears to have converted back to normal sinus rhythm. Repeat EKG is pending. Appreciate cardiology consultation and recommendations. (6) CKD (chronic kidney disease), stage III: Plan: Creatinine has crept up to 1.8. Continue IV fluids. Monitor intake and output. Serial labs Plan Hopeful discharge to home tomorrow, August 26 Admission and Anticipated Discharge Date Admission Date: August 23, 2024 Subjective Alert and oriented. No distress. He underwent cystoscopy last evening with placement of right ureter stent, ureteral dilatation and laser lithotripsy of the stone. He then developed atrial fibrillation with rapid ventricular rate. He is now on an amiodarone drip. He appears to have converted back to normal sinus rhythm. Repeat EKG is ordered and pending. Appreciate cardiology consultation and recommendations. Chest x-ray reveals low volumes. Incentive spirometry has been ordered. Lisinopril remains on hold. Serratia isolated in the urine, sensitive to Rocephin. Creatinine has increased to 1.8. Continue IV fluids. Will repeat renal function labs again tomorrow, August 26. Hopefully, the IV amiodarone can be switched to oral dosing tomorrow and he can be discharged. Review of Systems 2 Review of Systems: Constitutionalno fever or chills ENTno blurred vision, no double vision, no epistaxis, no sore throat Respiratoryno cough, no wheezing, no shortness of breath Cardiacpalpitations noted. No chest pain. No syncope. Soniya nausea, vomiting, diarrhea, melena, hematochezia GUno urinary retention, no urinary incontinence, no dysuria, no hematuria Musculoskeletalno joint pain, no muscle tenderness Skinno bruising, no rashes, no pruritus Neurono isolated weakness, no paresthesia, no weakness Psychno depression, no anxiety Physical Exam 2 Physical Exam: General-alert and oriented x3, no fever, no chills. Obese HEENT-head atraumatic and normocephalic, pupils equal and reactive to light, extraocular muscles intact Neck-no lymphadenopathy or thyromegaly, trachea midline Chest-clear to auscultation. No rales, wheezing or rhonchi Cardiac-regular rate and rhythm, normal S1 and S2 Abdomen-normal bowel sounds, no hepatosplenomegaly Extremities-no cyanosis, clubbing, or edema Neuro-cranial nerves II through XII intact, motor and sensory function within normal limits, strength symmetrical, no focal deficits Psych-normal affect, normal mood Results & Data Results & Data Vital Signs (Past 12 Hours) Vital Signs Temp Pulse Pulse Pulse Resp BP Pulse Ox 08/25/24 08:16 59 L 08/25/24 08:16 08/25/24 07:59 38.6 C H 62 20 99/58 L 95 08/25/24 07:10 38.5 C H 70 20 107/68 93 08/25/24 06:40 74 20 116/78 93 08/25/24 06:25 79 126/55 L 08/25/24 05:55 38.8 C H 117 H 22 127/72 08/25/24 05:22 37.8 C H 79 20 109/54 L 92 08/25/24 04:14 37.7 C H 76 20 121/72 91 08/25/24 02:18 36.9 C 77 18 105/65 91 08/25/24 00:40 83 20 112/68 92 08/25/24 00:29 81 08/25/24 00:20 36.9 C 132 H 22 83/60 L 91 08/25/24 00:00 08/24/24 23:55 145 H O2 Del Method O2 Flow Rate 08/25/24 08:16 08/25/24 08:16 Nasal Cannula 2 08/25/24 07:59 Nasal Cannula 2 08/25/24 07:10 Nasal Cannula 2 08/25/24 06:40 Nasal Cannula 08/25/24 06:25 08/25/24 05:55 08/25/24 05:22 Room Air 08/25/24 04:14 Room Air 08/25/24 02:18 Room Air 08/25/24 00:40 Room Air 08/25/24 00:29 08/25/24 00:20 Room Air 08/25/24 00:00 Room Air 08/24/24 23:55 Laboratory Results 08/25/24 04:08 08/25/24 04:08 PG Care Time/CCT Total # of Minutes Spent Total Time Spent with Patient: Total time spent is greater than 50% in coordination of care (as documented) at patient's floor/unit and/or counseling patient: Coding Level of Care Code 42613 SUB INP/OBS CARE 3/50MIN Diagnoses Ureteral stone N20.1 Acute UTI (urinary tract infection) N39.0 Hydronephrosis N13.2 Hydronephrosis type: with renal calculous obstruction BARB (acute kidney injury) N17.9 Paroxysmal atrial fibrillation I48.0 Stage 3a chronic kidney disease N18.31 Chronic kidney disease stage 3 subtype: stage 3a (GFR 45-59) (3) Hydronephrosis Hydronephrosis type: with renal calculous obstruction Qualified Code(s): N 13.2 - Hydronephrosis with renal and ureteral calculous obstruction (6) CKD (chronic kidney disease), stage III Chronic kidney disease stage 3 subtype: stage 3a (GFR 45-59) Qualified Code(s): N18.31 - Chronic kidney disease, stage 3a
[2024-08-25] MEDS: APIXABAN 5 MG TABLET PO SCH (12:27)
[2024-08-25] MEDS: AMIODARONE / D5W 360 MG/200 ML BAG IV SCH (12:39)
--- NOTE | 2024-08-25 14:11 | XCELERA ---
[id number]
--- NOTE | 2024-08-25 14:17 | Electrocardiogram Report ---
Test Reason : Blood Pressure : */* mmHG Vent. Rate : 137 BPM Atrial Rate : 138 BPM P-R Int : 136 ms QRS Dur : 134 ms QT Int : 336 ms P-R-T Axes : * -35 128 degrees QTcB Int : 507 ms Probable Atrial flutter Left bundle branch block Abnormal ECG When compared with ECG of 24-Aug-2024 22:29, No significant change Confirmed by Cristopher Pastrana ([id number]) on 08/25/2024 2:17:11 PM Referred By: REFERRED SELF Confirmed By: Cristopher Pastrana
--- NOTE | 2024-08-25 14:18 | Electrocardiogram Report ---
Test Reason : Blood Pressure : */* mmHG Vent. Rate : 148 BPM Atrial Rate : 144 BPM P-R Int : * ms QRS Dur : 132 ms QT Int : 324 ms P-R-T Axes : * -35 114 degrees QTcB Int : 508 ms Atrial flutter with 2:1 A-V conduction Left bundle branch block Abnormal ECG When compared with ECG of 25-Aug-2024 05:49, No significant change Confirmed by Cristopher Pastrana ([id number]) on 08/25/2024 2:18:06 PM Referred By: REFERRED SELF Confirmed By: Cristopher Pastrana
--- NOTE | 2024-08-25 14:24 | Electrocardiogram Report ---
Test Reason : Blood Pressure : */* mmHG Vent. Rate : 53 BPM Atrial Rate : 53 BPM P-R Int : 174 ms QRS Dur : 104 ms QT Int : 462 ms P-R-T Axes : 20 8 20 degrees QTcB Int : 433 ms Sinus bradycardia Incomplete right bundle branch block Abnormal ECG When compared with ECG of 25-Aug-2024 05:56, Sinus rhythm has replaced Atrial fibrillation Vent. rate has decreased by 95 bpm Left bundle branch block is no longer Present Confirmed by Cristopher Pastrana ([id number]) on 08/25/2024 2:24:13 PM Referred By: REFERRED SELF Confirmed By: Cristopher Pastrana
--- NOTE | 2024-08-25 15:33 | Urology Progress Note ---
Date of Service August 25, 2024 Assessment & Plan (1) Ureteral stone: (2) Renal colic on right side: (3) Hydronephrosis: Plan POD #1 s/p Cystoscopy with right ureteroscopy, laser lithotripsy, ureteral dilation, stone basket extraction, stent placement, retrograde pyelogram, and aspiration of urine. Tolerating the stent with minimal bother. Febrile this morning and mildly hypotensive Labs today show a white count of 12.59, hemoglobin 12.6 and creatinine 1.86 Urine culture final with Serratia marcescens Urine kidney aspirate pending Voiding spontaneously Continue antibiotic therapy Continue supportive care and trending labs Recommend checking bladder scan/PVR to ensure he is emptying. Will plan to maintain the stent for approximately 1 to 2 weeks and will arrange removal in office. Urology will follow. Admission and Anticipated Discharge Date Admission Date: August 23, 2024 Subjective Patient seen at bedside today. Awake and resting in bed on arrival. No acute distress. Reports he was feeling poorly last night but feels better this morning. Tolerating the stent with minimal bother. Febrile earlier this morning. Denies nausea or vomiting. Voiding without issue. He did develop A-fib with RVR overnight. Cardiology consulted. Review of Systems Constitutional: as per Subjective / HPI Genitourinary: + as per Subjective / HPI Physical Exam Constitutional: no acute distress Respiratory: no respiratory distress and no labored breathing Neurologic: awake Psychiatric: A+Ox3, euthymic affect Results & Data Vital Signs (Past 12 Hours) Vital Signs Temp Pulse Pulse Pulse Resp BP Pulse Ox 08/25/24 15:24 36.7 C 51 L 18 108/68 95 08/25/24 11:47 37.4 C 55 L 19 100/54 L 92 08/25/24 08:16 59 L 08/25/24 08:16 08/25/24 07:59 38.6 C H 62 20 99/58 L 95 08/25/24 07:10 38.5 C H 70 20 107/68 93 08/25/24 06:40 74 20 116/78 93 08/25/24 06:25 79 126/55 L 08/25/24 05:55 38.8 C H 117 H 22 127/72 08/25/24 05:22 37.8 C H 79 20 109/54 L 92 08/25/24 04:14 37.7 C H 76 20 121/72 91 O2 Del Method O2 Flow Rate 08/25/24 15:24 Room Air 08/25/24 11:47 Room Air 08/25/24 08:16 08/25/24 08:16 Nasal Cannula 2 08/25/24 07:59 Nasal Cannula 2 08/25/24 07:10 Nasal Cannula 2 08/25/24 06:40 Nasal Cannula 08/25/24 06:25 08/25/24 05:55 08/25/24 05:22 Room Air 08/25/24 04:14 Room Air PG Care Time/CCT Total # of Minutes Spent Total Time Spent with Patient: Total time spent is greater than 50% in coordination of care (as documented) at patient's floor/unit and/or counseling patient: Coding Level of Care Code 59605 SUB INP/OBS CARE 235MIN Diagnoses Ureteral stone N20.1 Renal colic on right side N23 Hydronephrosis N13.2 Hydronephrosis type: with renal calculous obstruction (3) Hydronephrosis Hydronephrosis type: with renal calculous obstruction Qualified Code(s): N13.2 - Hydronephrosis with renal and ureteral calculous obstruction
--- NOTE | 2024-08-25 22:59 | Communication Note ---
Date of Service: August 25, 2024 Notified by nursing of HRs in the 40s/50s with amiodarone gtt. Pt asymptomatic, blood pressures 100s/60s. Decreased rate of amiodarone gtt by 1/2. Held m etoprolol, would consider restarting qAM if appropriate.
[2024-08-26 03:22] VITALS: RESP 19
[2024-08-26 06:38] LABS: Basophils # (auto) 0.02 K/uL (0.00-0.20); Basophils % (auto) 0.2 %; Eosinophils # (auto) 0.02 K/uL (0.00-0.50); Eosinophils % (auto) 0.2 %; Hematocrit (blood only) 37.1 % (42.0-52.0); Hemoglobin 11.9 g/dl (14.0-18.0); Immature Granulocytes # (auto) 0.06 K/uL (0.01-0.20); Immature Granulocytes % (auto) 0.7 %; Lymphocytes # (auto) 0.35 K/uL (1.20-3.40); Lymphocytes % (auto) 4.4 %; Mean Corpuscular Hemoglobin 28.7 pg (25.0-34.0); Mean Corpuscular Hgb Conc 32.1 g/dL (32.0-36.0); Mean Corpuscular Volume 89.6 fL (80.0-100.0); Mean Platelet Volume 11.4 fL (9.4-12.4); Monocytes # (auto) 0.86 K/uL (0.11-0.59); Monocytes % (auto) 10.7 %; Neutrophils # (auto) 6.72 K/uL (1.40-6.50); Neutrophils % (auto) 83.8 %; Platelet Count 110 K/uL (130-400); RDW Coefficient of Variation 13.6 % (11.5-14.5); RDW Standard Deviation 44.5 fL (36.4-46.3); Red Blood Count 4.14 M/uL (4.70-6.10); White Blood Count 8.03 K/ul (4.8-10.8)
[2024-08-26 07:03] LABS: BUN Creatinine Ratio 18.4 (10-20); Calcium 8.5 mg/dl (8.6-10.3); Magnesium 2.1 mg/dl (1.7-2.4); Potassium 4.3 mmol/L (3.5-5.1)
[2024-08-26] MEDS: AMIODARONE 200 MG TAB PO SCH (08:23)
--- NOTE | 2024-08-26 10:27 | Cardiology Progress Note ---
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 Paroxysmal atrial fibrillation: A-fib burden has increased over the past several months. In the past he was reluctant to antiarrhythmic therapy or ablation but given change in A-fib burden, more aggressive therapy seems warranted and he is now agreeable. He has already been transition to amiodarone 200 mg twice daily as recommended by Dr. Pastrana yesterday. We discussed potential short-term and long-term adverse reactions from amiodarone. He has an appointment with electrophysiology through [facility], Dr. Collazo. Keep that appointment. Monitor TSH and transaminase levels while on amiodarone. Reduce metoprolol while on amiodarone given mild bradycardia. Metoprolol has been reduced to 100 mg daily by the hospitalist service. Continue anticoagulation for stroke risk reduction. Would not start diltiazem (recently prescribed in the outpatient setting) now that he is on amiodarone while continuing with beta- maria teresa and mildly bradycardic. This was discussed with patient and his . 2. Anticoagulation: Continue anticoagulation for stroke risk reduction. Has mild anemia. Monitor for bleeding. Follow closely in the outpatient setting. 3. Hypertension: Blood pressure acceptable. Adjusting beta-maria teresa as above. 4. Disposition: Follow-up closely in the cardiology outpatient setting. He is now followed by Dr. Disla of [facility]. Recommended that he follow-up in her office in the next week to check heart rate and response to amiodarone and new dose of beta-maria teresa. Continue to follow-up with electrophysiology as previously scheduled. Plan of care communicated with Dr. Diamond of the primary hospitalist service, although patient has already been discharged. Message sent to Dr. Disla to make her aware and to help arrange follow-up. Admission and Anticipated Discharge Date Admission Date: August 23, 2024 Subjective Patient seen this morning with his present at the bedside. He felt back to baseline. He has not had any further palpitations while on amiodarone. He converted to sinus rhythm on 08/25/2024 at 6:24 AM. He denies chest pain, shortness of breath, syncope, near syncope, edema, or bleeding. He reports that he has established cardiology care with [facility], Dr. Disla, with an upcoming appointment with Dr. Collazo. At his recent visit with Dr. Disla, amlodipine was discontinued in favor of diltiazem and metoprolol was decreased to 100 mg twice daily. He has not made these changes at home yet. He reported that he is going home today. Physical Exam Physical Exam: Gen.: No acute distress. Alert. HEENT: Anicteric sclera. Neck: No JVD. Cardiac: Regular. Normal S1-S2. No murmurs, rubs, or gallops. Pulmonary: Clear to auscultation bilaterally without wheezes, rales, or rhonchi. Abdomen: Soft, nontender, nondistended, with normoactive bowel sounds. No bruits noted. Extremities: 2+ radial pulses bilaterally. 2+ posterior tibialis pulses bilaterally. Trace bilateral lower extremity edema. No cyanosis. Results & Data Vital Signs (Past 12 Hours) Vital Signs Temp Pulse Pulse Pulse Resp BP BP 08/26/24 08:02 57 L 08/26/24 07:42 36.8 C 58 L 19 137/76 08/26/24 03:21 36.5 C 50 L 19 136/80 08/26/24 00:03 36.7 C 48 L 18 100/59 L 08/25/24 23:52 105/65 Pulse Ox O2 Del Method 08/26/24 08:02 08/26/24 07:42 96 Room Air 08/26/24 03:21 93 Room Air 08/26/24 00:03 93 Room Air 08/25/24 23:52 Laboratory Results Laboratory Results - last 24 hr 08/25/24 08/25/24 08/25/24 10:16 11:45 16:46 WBC RBC Hgb Hct MCV MCH MCHC RDW Std Deviation RDW Coeff of Leslie Plt Count MPV Immature Gran % (Auto) Neut % (Auto) Lymph % (Auto) Desha % (Auto) Eos % (Auto) Baso % (Auto) Neut # (Auto) Lymph # (Auto) Desha # (Auto) Eos # (Auto) Baso # (Auto) Immature Gran # (Auto) Sodium Potassium Chloride Carbon Dioxide Anion Gap BUN Creatinine Est Cr Clr Drug Dosing eGFR BUN/Creatinine Ratio Glucose POC Glucose 158 H 112 H Calcium Magnesium Free T4 0.96 Free T3 2.29 L 08/25/24 08/26/24 08/26/24 20:19 06:07 07:40 WBC 8.03 RBC 4.14 L Hgb 11.9 L Hct 37.1 L MCV 89.6 MCH 28.7 MCHC 32.1 RDW Std Deviation 44.5 RDW Coeff of Leslie 13.6 Plt Count 110 L MPV 11.4 Immature Gran % (Auto) 0.7 Neut % (Auto) 83.8 Lymph % (Auto) 4.4 Desha % (Auto) 10.7 Eos % (Auto) 0.2 Baso % (Auto) 0.2 Neut # (Auto) 6.72 H Lymph # (Auto) 0.35 L Desha # (Auto) 0.86 H Eos # (Auto) 0.02 Baso # (Auto) 0.02 Immature Gran # (Auto) 0.06 Sodium 136 Potassium 4.3 Chloride 104 Carbon Dioxide 28 Anion Gap 4 BUN 26 H Creatinine 1.41 H D Est Cr Clr Drug Dosing 64.0 eGFR 53.61 BUN/Creatinine Ratio 18.4 Glucose 120 H POC Glucose 176 H 110 H Calcium 8.5 L Magnesium 2.1 Free T4 Free T3 Diagnostic Findings Telemetry personally reviewed as noted above in HPI. Sinus bradycardia in the 50s this morning. Echo report reviewed from 08/25/2024: LV EF 55 to 60%. Normal wall motion. No significant valvular abnormalities reported. ECG personally reviewed from 08/25/2024 at 1254: Sinus bradycardia 53 bpm. Labs reviewed and notable for mildly abnormal but stable renal function, normal potassium, mild anemia. Medications Administered Current Inpatient Medications Acetaminophen (Acetaminophen 325 Mg Tab) 650 mg PO Q4H PRN PRN Reason: pain/fever Stop: 09/22/24 21:25 Last Admin: 08/25/24 05:21 Dose: 650 mg Alprazolam (Alprazolam 0.5 Mg Tablet) 0.5 mg PO Q6H PRN PRN Reason: Anxiety Stop: 09/22/24 21:25 Amiodarone HCl (Amiodarone 200 Mg Tab) 200 mg PO BIDM RADHA Stop: 09/25/24 07:59 Last Admin: 08/26/24 08:23 Dose: 200 mg Amlodipine Besylate (Amlodipine Besylate 5 Mg Tab) 2.5 mg PO DAILY [facility] Stop: 09/23/24 08:59 Last Admin: 08/26/24 09:31 Dose: 2.5 mg Apixaban (Apixaban 5 Mg Tablet) 5 mg PO BID [facility] Stop: 09/24/24 09:59 Last Admin: 08/26/24 09:32 Dose: 5 mg Baclofen (Baclofen 10 Mg Tab) 10 mg PO TID PRN PRN Reason: muscle spasm Stop: 09/22/24 21:25 Buspirone HCl (Buspirone 15 Mg Tab) 15 mg PO BID [facility] Stop: 09/22/24 21:25 Last Admin: 08/26/24 09:32 Dose: 15 mg Finasteride (Finasteride 5 Mg Tab) 0.5 mg PO QPM [facility] Stop: 09/22/24 21:25 Last Admin: 08/25/24 20:05 Dose: 0.5 mg Gabapentin (Gabapentin 300 Mg Cap) 300 mg PO HS [facility] Stop: 09/22/24 21:25 Last Admin: 08/25/24 20:05 Dose: 300 mg Ceftriaxone Sodium (Rocephin) 2,000 mg in 50 mls @ 100 mls/hr IV Q24H [facility] Stop: 08/28/24 21:59 Last Infusion: 08/25/24 21:53 Dose: Infused Metoprolol Succinate (Metoprolol Succ 50mg Ext Rel Tab) 150 mg PO BID@0400,1600 [facility] Stop: 09/23/24 04:14 Last Admin: 08/25/24 17:00 Dose: Not Given Morphine Sulfate (Morphine Sulfate 2 Mg/Ml Carp) 2 mg IV Q4H PRN PRN Reason: Severe Pain (Scale 7, 8, 9,10) Stop: 09/06/24 21:25 Ondansetron HCl (Ondansetron Inj 2 Mg/Ml 2 Ml Vial) 4 mg IV Q6H PRN PRN Reason: Nausea Stop: 09/22/24 21:25 Oxycodone HCl (Oxycodone Hcl Ir 5 Mg Tab (Immediate Release)) 5 mg PO Q8 PRN PRN Reason: Moderate Pain (Scale 4, 5, 6) Stop: 09/06/24 21:25 Last Admin: 08/24/24 16:06 Dose: 5 mg Tamsulosin HCl (Tamsulosin Hcl 0.4 Mg Cap) 0.4 mg PO HS RADHA Stop: 09/22/24 21:25 Last Admin: 08/25/24 20:04 Dose: 0.4 mg PG Care Time/CCT Total # of Minutes Spent Total Time Spent with Patient: Total time spent is greater than 50% in coordination of care (as documented) at patient's floor/unit and/or counseling patient: Coding Level of Care Code 16959 SUB INP/OBS CARE 3/50MIN Diagnoses Paroxysmal atrial fibrillation I48.0 shelter (current) use of 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/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 Z79.02 HTN (hypertension) I10 Hypertension type: unspecified Anemia D64.9 (3) HTN (hypertension) Hypertension type: unspecified Qualified Code(s): I10 - Essential (primary) hypertension
--- NOTE | 2024-08-26 10:33 | Discharge Summary ---
Discharge Summary Date of Service August 26, 2024 Principal Dx & Hospital Course #1 = Principal Diagnosis (1) Ureteral stone: Right UPJ stone POA. Appreciate urology consultation and recommendations. He underwent cystoscopy August 24 evening with right ureteral stent placement, ureteral dilatation, and laser lithotripsy of the stone. (2) Acute UTI (urinary tract infection): Serratia isolated. Sensitive to Rocephin, day 4. Continue cephalexin at discharge for several more days (3) Hydronephrosis: Right sided. Mild. Will eventually resolve (4) BARB (acute kidney injury): On chronic kidney disease stage III. Creatinine crept up to 1.8 and then decreased to 1.4 with IV fluids at the time of discharge. Monitor urine output. Serial labs (5) Paroxysmal atrial fibrillation: He had recurrent atrial fibrillation with rapid ventricular rate last evening after the cystoscopy procedure. Amiodarone drip was started by cardiology and he has now been switched to amiodarone 200 mg twice daily by mouth. This will be further adjusted as an outpatient. His metoprolol was held last night due to bradycardia and his dosage will be decreased to metoprolol succinate 100 mg daily. He will remain on amlodipine for now. He has converted back to normal sinus rhythm. Appreciate cardiology consultation and recommendations. (6) CKD (chronic kidney disease), stage III: Creatinine crept up to 1.8 then decreased to 1.4 today, August 26, with IV fluids. Monitor intake and output. Serial labs Plan Home todayAugust 26 Admission HPI Per Admitting Provider 69 YOM with medical history of: Bladder cancer with LUTS- currently undergoing BCG treatments, AFIB- currently sinus rythm (on Metoprolol and Apixaban), HTN, Neuropathy, chronic joint pain. Patient came to the [facility] today for 1 day history of right sided flank pain that started this morning. Initially it was associated with decrease urination and feeling like he was not emptying his bladder fully. He recently had a 3 month follow up with Urology for screening cystoscopy on 07/22/24 as well as follow up on damaged urethra from August 01 related to Corey insertion. He called the urology office and he was seen there where he had PVR done, UA and was given dose of Ciprofloxacin. He was discharged home, once he got home, he had increase in pain on the right flank, this time was associated with rigors, nausea without vomiting, and low grade fever which he reports orally as 100.3. The pain then became a little more constant and now was associated with radiation of pain into groin and testicle. He came to the [facility]. He had CT of the abdomen/pelvis completed, he was noted to have a 5mm right renal stone at the UVJ and mild hydronephrosis. He was given a dose of Rocephin in the EMD. Patient will be admitted to medical floor, will make NPO after midnight, urology consultation for possible evaluation related to stone, will provide pain control, continue his Alpha blockers, and IVF. WIll strain all urine. Will hold evening dose of Apixaban until procedural evaluation is completed. CODE: FULL Discharge Exam General-alert and oriented x3, no fever, no chills. Obese HEENT-head atraumatic and normocephalic, pupils equal and reactive to light, extraocular muscles intact Neck-no lymphadenopathy or thyromegaly, trachea midline Chest-clear to auscultation. No rales, wheezing or rhonchi Cardiac-regular rate and rhythm, normal S1 and S2 Abdomen-normal bowel sounds, no hepatosplenomegaly Extremities-no cyanosis, clubbing, or edema Neuro-cranial nerves II through XII intact, motor and sensory function within normal limits, strength symmetrical, no focal deficits Psych-normal affect, normal mood Discharge Plan Discharge Items Patient Disposition: Home - Self-Care Reason For Visit: OBSTRUCTING KIDNEY STONE Discharge Diagnosis: Right UVJ ureteral stone, mild right hydronephrosis, Serratia UTI, acute on chronic kidney disease stage III, paroxysmal atrial fibrillation with rapid ventricular rate Activity: Resume your previous activity Non-emergency contact: Primary Care Provider and Clinical Rn Call non-emergency contact if: you have any medication questions and your symptoms worsen Follow-up/Referrals: Ronak Marie III, CRNP [Primary Care Provider] - Thaddeus Anaya DO [Physician] - 09/05/24 1:00 pm Diet: Regular and Heart Healthy Addtl Attending Provider Instructions: Amiodarone 200 mg twice daily is new. A prescription has been sent to [facility]. Stay on amlodipine as before. Do not start diltiazem. Metoprolol succinate dosage has been decreased to 100 mg daily. Take cephalexin antibiotic 3 times daily for 5 more days Pending Studies at Discharge: No Stand-Alone Forms: My [facility], Smoking Cessation Medications and DC Order Prescriptions: New amiodarone 200 mg Tablet 200 mg PO BIDM Qty: 40 0RF metoprolol succinate 100 mg tablet extended release 24 hr 100 mg PO DAILY Qty: 30 0RF cephalexin 500 mg capsule 500 mg PO TID Qty: 15 0RF Continued dutasteride [Avodart] 0.5 mg capsule 0.5 mg PO QPM Qty: 90 3RF lisinopril 40 mg tablet 40 mg PO QAM Qty: 90 3RF tamsulosin 0.4 mg capsule 0.4 mg PO HS Qty: 90 1RF amlodipine 2.5 mg tablet 2.5 mg PO DAILY Qty: 90 3RF gabapentin 300 mg capsule 300 mg PO HS Qty: 30 5RF buspirone 15 mg tablet 15 mg PO BID Qty: 180 3RF alprazolam [Xanax] 0.5 mg tablet 0.5 mg PO QAM PRN (Reason: Anxiety) Qty: 30 2RF Eliquis 5 mg tablet 5 mg PO BID Qty: 180 3RF baclofen 10 mg tablet 10 mg PO TID PRN (Reason: muscle spasm) Qty: 270 2RF tramadol 50 mg tablet 50 mg PO BID PRN (Reason: pain) Qty: 60 0RF sodium bicarbonate 650 mg tablet 1,300 mg PO DAILY PRN (Reason: SEE BELOW) Rx Instructions: Take 1300 mg the evening before and the day of intravesical therapy. colchicine 0.6 mg tablet 0.6 mg PO BID PRN (Reason: gout) Rx Instructions: Per patient he takes 0.3mg by mouth daily. diltiazem HCl 120 mg capsule,ext.rel 24h degradable 120 mg PO UD Discontinued metoprolol succinate 100 mg tablet extended release 24 hr 150 mg PO BID Qty: 270 3RF Discharge Orders: Discharge Order (Routine); Ordered 08/26/24 Ordered By: Ezra Diamond Admission Data Admit Date/Time: 08/23/24 19:51 Attending Provider: Ezra Diamond Admit Provider: Yeimi Murray Primary Care Provider: Ronak Marie III Other Providers: Yeimi Murray; Larry Segundo; Victoriano,Cristopher F. Hospital Stay Data Consultations 08/23/24 19:48 ED Decision to Admit Stat 08/23/24 21:26 Consult Urology Routine 08/25/24 06:22 Consult Cardiology Routine Procedures Performed Operation Date: 08/24/24 09:10 Actual Procedures p Cystoscopy, Right Ureteroscopy, Right Retrograde Pyelogram, Laser Destruction, Basket Stone Extraction, Right Stent Placement(Right) - Thadedus Anaya, Diagnostic Imagining Performed 08/23/24 16:26 CT stones [CT abd pelvis wo con] Stat 08/24/24 [place] retrograde includes kub Routine Pending Results Patient Have Any Pending Studies at Discharge: No Discharge Instructions Given to Patient (Per Discharging Provider) Amiodarone 200 mg twice daily is new. A prescription has been sent to [facility]. Stay on amlodipine as before. Do not start diltiazem. Metoprolol succinate dosage has been decreased to 100 mg daily. Take cephalexin antibiotic 3 times daily for 5 more days Total Time Total Time Spent Total Time Spent (In Minutes): 45 minutes Coding Level of Care Code 80515 INP/OBS DISCH >30 MIN Diagnoses Ureteral stone N20.1 Acute UTI (urinary tract infection) N39.0 Hydronephrosis N13.2 Hydronephrosis type: with renal calculous obstruction BARB (acute kidney injury) N17.9 Paroxysmal atrial fibrillation I48.0 Stage 3a chronic kidney disease N18.31 Chronic kidney disease stage 3 subtype: stage 3a (GFR 45-59)
--- NOTE | 2024-08-26 10:39 | Urology Progress Note ---
Date of Service August 26, 2024 Assessment & Plan (1) Ureteral stone: (2) Renal colic on right side: (3) Hydronephrosis: Plan Doing well s/p cystoscopy, right ureteroscopy and stone removal. He can maintain the stent for the next 1 to 2 weeks. Urology will coordinate outpat ient removal. Seems appropriate for discharge home from urology perspective. Would consider a couple more days of antibiotics given recent instrumentation and prior UTI. Admission and Anticipated Discharge Date Admission Date: August 23, 2024 Subjective Feeling better this morning, no longer having any fevers or chills. Tolerating the stent without any trouble. Creatinine has improved as has WBC. Urine culture from 08/23/2024 with Serratia, urine from 08/24 with no growth to date. Physical Exam Physical Exam: Resting comfortably in bed, NAD Results & Data Vital Signs (Past 12 Hours) Vital Signs Temp Pulse Pulse Pulse Resp BP BP 08/26/24 08:02 57 L 08/26/24 07:42 36.8 C 58 L 19 137/76 08/26/24 03:21 36.5 C 50 L 19 136/80 08/26/24 00:03 36.7 C 48 L 18 100/59 L 08/25/24 23:52 105/65 Pulse Ox O2 Del Method 08/26/24 08:02 08/26/24 07:42 96 Room Air 08/26/24 03:21 93 Room Air 08/26/24 00:03 93 Room Air 08/25/24 23:52 PG Care Time/CCT Total # of Minutes Spent Total Time Spent with Patient: Total time spent is greater than 50% in coordination of care (as documented) at patient's floor/unit and/or counseling patient: Coding Level of Care Code 89832 SUB INP/OBS CARE 12/02MIN Diagnoses Ureteral stone N20.1 Renal colic on right side N23 Hydronephrosis N13.2 Hydronephrosis type: with renal calculous obstruction (3) Hydronephrosis Hydronephrosis type: with renal calculous obstruction Qualified Code(s): N13.2 - Hydronephrosis with renal and ureteral calculous obstruction
[2024-08-26 11:08] VITALS: TEMP 98.1; O2SAT 94
[2024-08-26 13:17] VITALS: BP 137/76; PULSE 70
[2024-08-31 22:08] LABS: Component 2 DNR; Source URETER STONE
== END 2024-08-26 14:19 | disposition home or self-care (01) | DRG 661 ==
LOC: ED 14:48 → SUATTDRO 19:51 → 3W 19:51 → 4W 08-25

== ENCOUNTER 2025-02-28 15:29 | Observation (INO) ==
--- NOTE | 2025-02-28 15:40 | Emergency Department Note ---
Impression & Plan Dizziness, Left bundle branch block, Hypertension, Flank pain ED Provider Note NAME: BERENICE WASHBURN AGE: 69 SEX: M : 1955 ARRIVES VIA: Walk-In INFORMANT: Patient ED PROVIDER(S): Boston Crocker MD CHIEF COMPLAINT: Dizziness, flank pain PLAN: Disposition: Admit MEDICAL DECISION MAKING: The patient is a pleasant 69-year-old gentleman with a past medical history of atrial fibrillation on Eliquis, amiodarone who presents to the emergency department via walk-in accompanied by his for evaluation of feeling unwell for the past couple of days with frequent intermittent lightheadedness when standing. He also reports intermittent episodes of right flank pain over the past couple of days which have since resolved after he noted he did have an episode of bloody urine from his urethra. He wondered if he may have passed a kidney stone. He denies having fevers but has felt weak and achy. He reports he does have some chronic sinus congestion and this is been clear and thin. On evaluation patient is fatigued appearing but no distress, afebrile with blood pressure 190s/80s and vital signs otherwise stable. He appears clinically dry. Exhibits no focal neurologic deficits. Abdomen is benign. EKG without overt acute ischemia. Left bundle branch is present without Sgarbossa criteria. Of note, will compare to EKG in August 2024 when the patient was in sinus rhythm the left bundle branch block is new. However the same day he also was noted to be in atrial fibrillation with RVR when he also had a left bundle branch block and so suspect he has underlying conduction disease. CXR negative for acute cardiopulmonary process per my personal preliminary review/interpretation.. WBC and platelets within normal limits. H/H similar to improved from prior. Chemistry without metabolic acidosis. Phosphorus 2.1 and electrolytes otherwise unremarkable. LFTs unremarkable. High-sensitivity troponin 3.3, within normal limits. Lipase is normal. TSH within normal limits. UA with WBCs, nonspecific with negative nitrites and no bacteria and otherwise no evidence of infection at this time. CT of the head and CT of the head neck were performed and were negative for ICH, ischemia or severe narrowing occlusion of large vessels. Mild evidence of maxillary sinusitis is described which correlates with the patient's chronic sinus congestion. CT of the abdomen pelvis was performed and was negative for acute intra-abdominal process. Upon reevaluation the patient felt some improvement after IV fluid hydration and IV APAP. However, he still felt "unwell" and was concerned of his symptoms which were not typical. Thus, the patient was referred to the hospital service for further evaluation. Case was discussed with RENATO Grant hospitalist, who will evaluate the patient for admission. Further management per admitting team. Triage Nursing notes reviewed and agree them. Prior/external medical records reviewed Vital Signs: reviewed Differential diagnosis: Benign positional vertigo, dehydration, hypovolemia, anemia, tumor, infection, hypoglycemia, electrolyte abnormalities, cardiac sources, intracerebral event, toxicologic, neurologic, as well as other pathologies. ER treatment provided: See below. Diagnostics interpreted by me: ECG: Normal sinus rhythm, 64 bpm, no ectopy, left bundle branch block, no Sgarbossa criteria, QTc 476, QRS 162. Cardiac Monitoring: An order for continuous cardiac monitoring was placed and demonstrated normal sinus rhythm, 64 bpm, no ectopy. Laboratory studies: See below Imaging studies: See below Consultation(s): RAMON Grant hospitalist HPI: Per MDM. ROS: See above HPI for pertinent positives & negatives. A total of 10 systems reviewed and were otherwise negative. VITALS:See Below PHYSICAL EXAMINATION: GENERAL: Awake, alert, fatigued but well-appearing, in no distress HENT: Normocephalic, atraumatic. Oropharynx with dry mucous membranes and otherwise unremarkable. EYES: Normal conjunctiva. Sclera non-icteric. EOMI. No nystamgus. PEARRL. NECK: Supple. No nuchal rigidity. FROM. No JVD. RESPIRATORY: Clear to auscultation. CARDIAC: Regular rate, normal rhythm. Extremities warm and well perfused. Pulses equal. ABDOMEN: Soft, non-distended. No tenderness to palpation. No rebound or guarding. No masses.. MUSCULOSKELETAL: Chest examination reveals no tenderness. The back is symmetrical on inspection without obvious abnormality. There is no CVA tenderness to palpation. No joint edema. LOWER EXTREMITIES: Calves are equal size bilaterally and non-tender. No edema. No discoloration. NEURO: Cranial nerves II-XII grossly intact. 5/5 strength and SILT x 4 extremities. Cerebellar function intact including [id number], alternating palms, [id number]. SKIN: No rash or jaundice noted. Boston Crocker MD Past Med/Surg History Problem List (Updated 03/01/25 @ 19:33 by Boston Crocker MD) Flank pain (Acute) Hypertension (Acute) Left bundle branch block (Acute) Neuropathy CKD (chronic kidney disease) Dizziness (Acute) Asymptomatic hyperuricemia Bladder cancer (Chronic) s/p BCG treatment Obesity Microscopic hematuria Benign prostatic hyperplasia with urinary obstruction Dyslipidemia Anemia Gout (Chronic) Dry eyes Spinal stenosis, lumbar region with neurogenic claudication Insomnia (Chronic) Heart disease (Chronic) Extrinsic asthma (Chronic) Depression (Chronic) Chronic asthmatic bronchitis BPH (benign prostatic hyperplasia) (Chronic) Allergic rhinitis Medical History Ureteral stone BARB (acute kidney injury) LBBB (left bundle branch block) residential (current) use of 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/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 Kidney stones Paroxysmal atrial fibrillation CKD (chronic kidney disease), stage III HTN (hypertension) Back pain, chronic Anxiety Hyperkalemia Allergic rhinitis Chronic back pain Heart disease History of anemia Dyslipidemia Environmental and seasonal allergies Bladder cancer (2022) s/p BCG treatment completed chemo 11/2023 Nausea and vomiting after administration of anesthetic agent 35 yr ago but many surgeries since without issues Urinary retention Was seen in ER in June 2021- had romeo catheter placed x 1 weeks- no issues since Romeo catheter removed CKD (chronic kidney disease), stage III follows [address] Dr. Anaya BPH (benign prostatic hyperplasia) Gout Recent gout episode x 1-2 days- started with left knee pain- now left toe Will check with surgeon's office to see if he can start on Colchicine - will contact PCP if symptoms continue/get worse Atrial fibrillation Dx 2019> follows with Dr. Quinteros > continues with palpitations- on Metoprolol - per cardio- takes extra Metoprolol and symptoms improve On Eliquis Kidney stones Currently under observation Degenerative disc disease Spinal stenosis Anxiety and depression Asthma stable > exercise induced > no res inh use Hypertension Surgical History Status post cystoscopy History of bronchoscopy S/P epidural steroid injection S/P cystoscopy w/ bx and cauterization of re-emerging tumors in bladder "found to be benign" S/P ureteral stent placement 08/18/21 Dr. Thaddeus Anaya- L retrograde pyelogram, L ureteral stent S/P TURP (transurethral resection of prostate) 08/18/21 Dr. Thaddeus Anaya at [facility]; also removed malignant bladder tumors at the same time History of cardiac catheterization 20 YRS AGO= NO STENTS; done in [place] History of colonoscopy with polypectomy History of shoulder surgery R X2 , L X1 History of total left knee replacement History of total right hip arthroplasty (~10/2016) History of fusion of cervical spine C4-C5 ACDF> ROM limited per pt History of lumbar fusion L2-S1 HDW 08/14/19 Dr. Renan Grullon- Removal of posterior instrumentation L4-5; Exploration of fusion L4-5; Lumbar decompression bilateral medial facetectomies and foraminotomies L2-3 L3-4 L5-S1; Posterior spinal fusion L2- 3 L3-4 L4-5 L5-S1; Placement posterior segmental instrumentation from L2-S1; Interbody fusion L3-4 and L5-S1; Placement of titanium 11 x 26 mm cage at L3- 4 and 12 x 26 mm cage at L5-S1; Placement of locally harvested morselized autograft in the posterior lateral gutters; Placement infuse collagen sponge, master graft in the posterior lateral gutters and ostial amp and interbody space. History of urologic surgery KIDNEY STONE REMOVAL Family History Father Family history of melanoma Osteoarthritis Hypertension Kidney malignant neoplasm Melanoma Cardiac disorder Myocardial infarction, Onset Age: 30 Mother Family history of colon cancer Denies family history of Ovarian cancer Prostate cancer Breast cancer Colorectal cancer Social History Smoking Status: Never smoker Second Hand Exposure: No; Do You Dip or Chew Tobacco: No; Hx Alcohol Use: No Hx Substance Use: No Preferred Language: Kiswahili Communication Ability: Effective Visual Impairment: Partially Limited Hearing Ability: Hard of Hearing Merchandise Displayer Required: No Beliefs That Will Affect Care: None marital status: Current Living Situation: Spouse current occupational status: retired 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 How many Children do You have: 0 Feels Safe at Home: Yes Childhood Exposure to Second-Hand Smoke: Yes Diet: low carbohydrate and regular Diet Comment: low added sugars caffeine: Yes Dental Care, Regularly: No Physical Activity Frequency: Daily Physical Activity Frequency Comment: walks 3 times a day Seatbelt Use: always Sunscreen Use: Yes Assistive Devices: Cane, Stair Lift and Walker Allergies Allergies Allergy/AdvReac Type Severity Reaction Status Date / Time atorvastatin AdvReac Intermediate Joint Pain Verified 01/22/25 11:04 Home Meds Home Medications Medication Instructions Recorded Confirmed sodium bicarbonate 650 mg tablet 1,300 mg PO DAILY PRN SEE BELOW 01/24/24 02/28/25 tamsulosin 0.4 mg capsule 0.4 mg PO HS 02/28/25 02/28/25 Previous Rx's Medication Instructions Recorded lisinopril 40 mg tablet 40 mg PO QAM #90 tabs 12/22/23 amlodipine 2.5 mg tablet 2.5 mg PO DAILY #90 tabs 05/08/24 buspirone 15 mg tablet 15 mg PO BID #180 tabs 07/03/24 apixaban 5 mg tablet (Eliquis) 5 mg PO BID #180 tabs 08/14/24 metoprolol succinate 100 mg 100 mg PO DAILY #30 tabs 08/26/24 tablet,extended release 24 hr gabapentin 300 mg capsule 300 mg PO HS #90 caps 11/27/24 dutasteride 0.5 mg capsule 0.5 mg PO QPM #90 caps 12/11/24 (Avodart) tramadol 50 mg tablet 50 mg PO BID PRN pain #60 tabs 01/02/25 allopurinol 100 mg tablet 100 mg PO DAILY #90 tabs 01/17/25 alprazolam 0.5 mg tablet (Xanax) 0.5 mg PO QAM PRN Anxiety #30 tabs 01/22/25 indomethacin 25 mg capsule 25 mg PO TID #90 caps 01/22/25 amiodarone 100 mg tablet See Rx Instructions .Route 03/01/25 .COMPLEX #44 tabs cefdinir 300 mg capsule 300 mg PO BID 5 days #10 caps 03/01/25 Results & Data (ED) Vital Signs Vital Signs - 24 hr 02/28/25 21:00 02/28/25 21:56 Pulse Rate 65 Pulse Rate [Right Finger] 63 Respiratory Rate 18 Respiratory Effort / Characteristics Non-Labored Spontaneous Respiratory Depth Normal Blood Pressure [Right Arm] 153/81 H Blood Pressure Mean [Right Arm] 105 Pulse Oximetry 92 Laboratory Data Attestation: I reviewed the patient's lab results. 02/28/25 15:41 02/28/25 15:41 Lab Results 02/28/25 02/28/25 Range/Units 15:41 17:37 WBC 5.86 (4.8-10.8) K/ul RBC 4.61 L (4.70-6.10) M/uL Hgb 13.2 L (14.0-18.0) g/dl Hct 41.1 L (42.0-52.0) % MCV 89.2 (80.0-100.0) fL MCH 28.6 (25.0-34.0) pg MCHC 32.1 (32.0-36.0) g/dL RDW Std Deviation 50.1 H (36.4-46.3) fL RDW Coeff of Leslie 15.3 H (11.5-14.5) % Plt Count 161 (130-400) K/uL MPV 10.6 (9.4-12.4) fL Immature Gran % (Auto) 0.9 % Neut % (Auto) 66.3 % Lymph % (Auto) 16.7 % [place] % (Auto) 11.3 % Eos % (Auto) 4.3 % Baso % (Auto) 0.5 % Neut # (Auto) 3.89 (1.40-6.50) K/uL Lymph # (Auto) 0.98 L (1.20-3.40) K/uL [place] # (Auto) 0.66 H (0.11-0.59) K/uL Eos # (Auto) 0.25 (0.00-0.50) K/uL Baso # (Auto) 0.03 (0.00-0.20) K/uL Immature Gran # (Auto) 0.05 (0.01-0.20) K/uL PT 11.9 (9.0-12.0) Seconds INR 1.1 (0.9-1.1) Sodium 138 (136-145) mmol/L Potassium 4.4 (3.5-5.1) mmol/L Chloride 104 (98-107) mmol/L Carbon Dioxide 28 (21-32) mmol/L Anion Gap 6 (3-11) BUN 15 (6-23) mg/dl Creatinine 1.31 (0.6-1.4) mg/dl Est Cr Clr Drug Dosing 65.4 ml/min eGFR 58.56 BUN/Creatinine Ratio 11.5 (10-20) Glucose 99 (70-99(Fasting)) mg/dl Calcium 9.7 (8.6-10.3) mg/dl Phosphorus 2.1 L (2.5-4.9) mg/dl Magnesium 1.9 (1.7-2.4) mg/dl Total Bilirubin 0.6 (0.2-1.0) mg/dl AST 19 (13-39) U/L ALT 19 (7-52) U/L Alkaline Phosphatase 60 (34-104) U/L Troponin I High Sens 3.3 (0-20) pg/ml Total Protein 6.9 (6.0-8.3) gm/dl Albumin 4.1 (3.4-5.0) gm/dl Globulin 2.8 (2.5-4.0) gm/dl Albumin/Globulin Ratio 1.5 (0.9-2) Lipase 26 (11-82) U/L TSH 4.194 (0.300-4.500) uIu/ml Urine Color Yellow Urine Appearance Clear (Clear) Urine pH 6.0 (4.5-7.5) Ur Specific [place] 1.005 (1.000-1.030) Urine Protein Negative (Negative) Urine Glucose (UA) Negative (Negative) Urine Ketones Negative (Negative) Urine Blood Negative (Negative) Urine Nitrite Negative (Negative) Urine Bilirubin Negative (Negative) Urine Urobilinogen Negative (Negative) Ur Leukocyte Esterase 1+ H (Negative) Urine WBC (Auto) 11-20 H (0-5) /hpf Urine RBC (Auto) 0-2 (0-2) /hpf U Hyaline Cast (Auto) 0-2 (0-2) /lpf U Epithel Cells (Auto) 0-2 (0-2) /hpf Urine Bacteria (Auto) None Seen (None Seen) Lyme Disease Screen Negative (Negative) Administered Medications Discontinued Medications Allopurinol (Allopurinol 100 Mg Tab) 100 mg PO NOW STA Stop: 02/28/25 23:39 Last Admin: 03/01/25 00:07 Dose: 100 mg Documented By: ASW Amiodarone HCl (Amiodarone 200 Mg Tab) 200 mg PO DAILY RADHA Stop: 03/31/25 08:59 Last Admin: 03/01/25 07:42 Dose: 200 mg Documented By: EVE Amlodipine Besylate (Amlodipine Besylate 5 Mg Tab) 2.5 mg PO DAILY RADHA Stop: 03/31/25 08:59 Last Admin: 03/01/25 07:45 Dose: Not Given Documented By: EVE Apixaban (Apixaban 5 Mg Tablet) 5 mg PO ONE ONE Stop: 02/28/25 23:39 Last Admin: 03/01/25 00:07 Dose: 5 mg Documented By: ANGEL Apixaban (Apixaban 5 Mg Tablet) 5 mg PO BID RADHA Stop: 03/31/25 08:59 Last Admin: 03/01/25 07:43 Dose: 5 mg Documented By: EVE Buspirone HCl (Buspirone 15 Mg Tab) 15 mg PO NOW STA Stop: 02/28/25 23:39 Last Admin: 03/01/25 00:07 Dose: 15 mg Documented By: ANGEL Buspirone HCl (Buspirone 15 Mg Tab) 15 mg PO BID RADHA Stop: 03/31/25 08:59 Last Admin: 03/01/25 07:43 Dose: 15 mg Documented By: EVE Cefdinir (Cefdinir 300 Mg Cap) 300 mg PO ONE STA; Protocol Stop: 03/01/25 14:03 Last Admin: 03/01/25 14:25 Dose: 300 mg Documented By: EVE Gabapentin (Gabapentin 300 Mg Cap) 300 mg PO NOW STA Stop: 02/28/25 23:39 Last Admin: 03/01/25 00:07 Dose: 300 mg Documented By: ANGEL Sodium Chloride (Nss) 500 mls @ 999 mls/hr IV .Q31M ONE Stop: 02/28/25 16:08 Last Infusion: 02/28/25 16:27 Dose: Infused Documented By: Admin: 02/28/25 15:52 Dose: 999 mls/hr Documented By: NALLELY Acetaminophen (Ofirmev) 1,000 mg in 100 mls @ 400 mls/hr IV NOW STA Stop: 02/28/25 16:22 Last Infusion: 02/28/25 16:56 Dose: Infused Documented By: Admin: 02/28/25 16:20 Dose: 400 mls/hr Documented By: BCN Ioversol (Optiray 320 125ml) 115 ml IV ONCE ONE Stop: 02/28/25 17:43 Last Admin: 02/28/25 17:42 Dose: 115 ml Documented By: DARINEL Lisinopril (Lisinopril 40 Mg Tab) 40 mg PO QAM [facility] Stop: 03/31/25 08:59 Last Admin: 03/01/25 07:43 Dose: 40 mg Documented By: EVE Metoprolol Succinate (Metoprolol Succ 50mg Ext Rel Tab) 100 mg PO DAILY [facility]1983 Stop: 03/31/25 08:59 Last Admin: 03/01/25 07:43 Dose: 100 mg Documented By: EVE Tamsulosin HCl (Tamsulosin Hcl 0.4 Mg Cap) 0.4 mg PO NOW ONE Stop: 02/28/25 23:39 Last Admin: 03/01/25 00:07 Dose: 0.4 mg Documented By: ANGEL Imaging Data Radiologist's Impression: Chest X-Ray 02/28/25 15:37 EXAM: Portable AP chest radiograph TECHNIQUE: AP portable radiograph of the chest was obtained. INDICATION: Shortness of breath Comparison: Chest radiograph August 25, 2024 FINDINGS: LINES and TUBES: None CARDIOVASCULAR: Cardiac silhouette is stably enlarged in size. LUNGS/PLEURA: Mild pulmonary vascular congestion, somewhat increased compared to previous with similar degree of ventilation. Bibasilar densities are likely atelectasis though airspace disease not excluded. No significant pleural fluid. No discernible pneumothorax. OSSEOUS/OTHER: No displaced acute osseous process identified. ACDF hardware. IMPRESSION: Pulmonary vascular congestion appears to have mildly increased from previous. Bibasilar densities may be atelectasis though airspace disease is not excluded. Electronically signed by Surinder Jean-Baptiste 02-28-2025 4:30 PM Abdomen/Pelvis CT 02/28/25 16:53 Clinical History: Kidney pain Technique: Axial computed tomography images were obtained of the abdomen and pelvis after the administration of intravenous contrast. Comparison is made to the prior CT dated 01/08/2025. Findings: The liver is overall of normal size, attenuation, and contour with no sign of cirrhosis or significant fatty infiltration. No liver mass lesion is seen. The portal vein is patent. The gallbladder appears unremarkable. No bile duct dilatation is noted. The spleen is of normal size. No focal splenic lesion is evident. The pancreas appears normal with no sign of acute or chronic pancreatitis and no mass lesion noted. The pancreatic duct is of normal caliber. The adrenal glands appear unremarkable. No definite renal or proximal ureteral calculi are seen on this contrast-enhanced study. There is no hydronephrosis or perinephric stranding. No renal mass lesion is identified. There are bilateral renal cysts, measuring up to 2.5 cm in size The aorta is of normal caliber. No abdominal adenopathy is seen. The stomach appears normal. There is no sign of small bowel obstruction. There is sigmoid diverticulosis without evidence of diverticulitis. The appendix appears normal. No free intraperitoneal fluid or air is identified. No distal ureteral or bladder calculi are seen. The bladder is decompressed. The prostate is diminutive or absent. The iliac arteries are of normal caliber. No pelvic adenopathy is noted. There are small bilateral inguinal hernias containing only fat There is mild elevation of the right hemidiaphragm. There is mild bilateral lung base atelectasis. There is a right hip total arthroplasty. There is a fusion of L2-S1. No fracture is identified. No focal osseous lesion is seen Impression: 1. Bilateral renal cysts 2. Bilateral lung base atelectasis 3. Diverticulosis without evidence of diverticulitis 4. Small bilateral inguinal hernias containing only fat ACT 112: Positive. There are findings on this exam that require communication between the performing entity and the patient following Patient Test Result Information Act ([place] ACT 112) guidelines. Electronically signed by Eitan Cho 02-28-2025 6:[address] 02/28/25 16:53 Technique: Axial computed tomography images were obtained of the brain from the vertex to the skull base without intravenous contrast. Findings: There is no sign of intracranial hemorrhage. There is normal franco-white matter differentiation with no sign of acute or old infarction. No midline shift or other form of herniation is identified. There is no hydrocephalus. No obvious mass lesion is seen on this noncontrast examination. There is a small amount of fluid in the maxillary sinuses bilaterally. The mastoid air cells appear clear Impression: 1. Normal-appearing brain 2. Maxillary sinusitis Electronically signed by Eitan Cho 02-28-2025 6:05 PM Head CTA 02/28/25 16:53 Clinical history: Dizziness and blurred vision Technique: Axial computed tomography images were obtained of the brain after the administration of intravenous contrast according to the CT angiogram protocol Findings: There is calcified plaque within the cavernous and supraclinoid segments of the internal carotid arteries bilaterally, without stenosis No definite stenosis or aneurysm is seen of the anterior, middle, or posterior cerebral artery circulations. The visualized vertebral arteries and the basilar artery appear unremarkable Impression: No definite stenosis or aneurysm of the intracranial arteries Electronically signed by Eitan Cho 02-28-2025 6:07 PM Neck CTA 02/28/25 16:53 Clinical history: Dizziness and blurred vision Technique: Axial computed tomography images were obtained of the neck after the administration of intravenous contrast according to the CT angiogram protocol Findings: No stenosis is seen in the common carotid arteries bilaterally. There is plaque within the carotid bulbs bilaterally, without significant stenosis. The remainder of the internal carotid arteries appear patent bilaterally. No stenosis of the external carotid arteries is seen The vertebral arteries are patent bilaterally with no significant stenosis seen. The visualized thoracic aorta appears unremarkable There is multilevel degenerative disc disease and osteoarthritis of the cervical spine. Impression: Mild carotid atherosclerosis, without stenosis Electronically signed by Eitan Cho 02-28-2025 6:10 PM Discharge Plan Visit Data Chief Complaint: Dizziness Stated Complaint: DIZZY, NAUSEA ED Provider: Boston Crocker Discharge Problem: Dizziness, Left bundle branch block, Hypertension, Flank pain Patient Disposition: Admitted As Inpatient Discharge Instructions Interventions: ED Discharge Assessment Last Done: 03/01/25 00:26 Discharge Problem: Hypertension Qualifiers: Hypertension type: unspecified Qualified Code(s): I10 - Essential (primary) hypertension
[2025-02-28] MEDS: SODIUM CHLORIDE 0.9% 500 ML IV ONE (15:52)
[2025-02-28 16:08] LABS: Basophils # (auto) 0.03 K/uL (0.00-0.20); Basophils % (auto) 0.5 %; Eosinophils # (auto) 0.25 K/uL (0.00-0.50); Eosinophils % (auto) 4.3 %; Hematocrit (blood only) 41.1 % (42.0-52.0); Hemoglobin 13.2 g/dl (14.0-18.0); Immature Granulocytes # (auto) 0.05 K/uL (0.01-0.20); Immature Granulocytes % (auto) 0.9 %; Lymphocytes # (auto) 0.98 K/uL (1.20-3.40); Lymphocytes % (auto) 16.7 %; Mean Corpuscular Hemoglobin 28.6 pg (25.0-34.0); Mean Corpuscular Hgb Conc 32.1 g/dL (32.0-36.0); Mean Corpuscular Volume 89.2 fL (80.0-100.0); Mean Platelet Volume 10.6 fL (9.4-12.4); Monocytes # (auto) 0.66 K/uL (0.11-0.59); Monocytes % (auto) 11.3 %; Neutrophils # (auto) 3.89 K/uL (1.40-6.50); Neutrophils % (auto) 66.3 %; Platelet Count 161 K/uL (130-400); RDW Coefficient of Variation 15.3 % (11.5-14.5); RDW Standard Deviation 50.1 fL (36.4-46.3); Red Blood Count 4.61 M/uL (4.70-6.10); White Blood Count 5.86 K/ul (4.8-10.8)
[2025-02-28] MEDS: ACETAMINOPHEN 1,000 MG/100 ML VIAL IV STA (16:20)
[2025-02-28 16:25] LABS: Albumin Globulin Ratio 1.5 (0.9-2); BUN Creatinine Ratio 11.5 (10-20); Bilirubin,Total 0.6 mg/dl (0.2-1.0); Calcium 9.7 mg/dl (8.6-10.3); Creatinine Clr Calc Pharmacy 65.4 ml/min; Globulin 2.8 gm/dl (2.5-4.0); Magnesium 1.9 mg/dl (1.7-2.4); Phosphorus 2.1 mg/dl (2.5-4.9); Potassium 4.4 mmol/L (3.5-5.1); Total Protein 6.9 gm/dl (6.0-8.3)
[2025-02-28 16:30] LABS: Troponin I High Sensitivity 3.3 pg/ml (0-20)
--- NOTE | 2025-02-28 16:31 | XRay Report ---
EXAM: Portable AP chest radiograph TECHNIQUE: AP portable radiograph of the chest was obtained. INDICATION: Shortness of breath Comparison: Chest radiograph August 25, 2024 FINDINGS: LINES and TUBES: None CARDIOVASCULAR: Cardiac silhouette is stably enlarged in size. LUNGS/PLEURA: Mild pulmonary vascular congestion, somewhat increased compared to previous with similar degree of ventilation. Bibasilar densities are likely atelectasis though airspace disease not excluded. No significant pleural fluid. No discernible pneumothorax. OSSEOUS/OTHER: No displaced acute osseous process identified. ACDF hardware. IMPRESSION: Pulmonary vascular congestion appears to have mildly increased from previous. Bibasilar densities may be atelectasis though airspace disease is not excluded. Electronically signed by Surinder Jean-Baptiste 02-28-2025 4:30 PM
[2025-02-28 16:40] LABS: INR 1.1 (0.9-1.1); Prothrombin Time 11.9 Seconds (9.0-12.0); Thyroid Stimulating Hormone 4.194 uIu/ml (0.300-4.500)
--- NOTE | 2025-02-28 17:08 | Electrocardiogram Report ---
Test Reason : Blood Pressure : */* mmHG Vent. Rate : 64 BPM Atrial Rate : 64 BPM P-R Int : 198 ms QRS Dur : 162 ms QT Int : 462 ms P-R-T Axes : 86 -40 85 degrees QTcB Int : 476 ms Normal sinus rhythm Left axis deviation Left bundle branch block Abnormal ECG When compared with ECG of 25-Aug-2024 12:54, Left bundle branch block is now Present Confirmed by Wade Quinteros ([id number]) on 02/28/2025 5:08:41 PM Referred By: Confirmed By: Wade Quinteros
[2025-02-28] MEDS: OPTIRAY 320 125ml IV ONE (17:42)
--- NOTE | 2025-02-28 18:05 | CT Scan Report ---
Technique: Axial computed tomography images were obtained of the brain from the vertex to the skull base without intravenous contrast. Findings: There is no sign of intracranial hemorrhage. There is normal franco-white matter differentiation with no sign of acute or old infarction. No midline shift or other form of herniation is identified. There is no hydrocephalus. No obvious mass lesion is seen on this noncontrast examination. There is a small amount of fluid in the maxillary sinuses bilaterally. The mastoid air cells appear clear Impression: 1. Normal-appearing brain 2. Maxillary sinusitis Electronically signed by Eitan Cho 02-28-2025 6:05 PM
--- NOTE | 2025-02-28 18:07 | CT Scan Report ---
Clinical history: Dizziness and blurred vision Technique: Axial computed tomography images were obtained of the brain after the administration of intravenous contrast according to the CT angiogram protocol Findings: There is calcified plaque within the cavernous and supraclinoid segments of the internal carotid arteries bilaterally, without stenosis No definite stenosis or aneurysm is seen of the anterior, middle, or posterior cerebral artery circulations. The visualized vertebral arteries and the basilar artery appear unremarkable Impression: No definite stenosis or aneurysm of the intracranial arteries Electronically signed by Eitan Cho 02-28-2025 6:07 PM
--- NOTE | 2025-02-28 18:10 | CT Scan Report ---
Clinical history: Dizziness and blurred vision Technique: Axial computed tomography images were obtained of the neck after the administration of intravenous contrast according to the CT angiogram protocol Findings: No stenosis is seen in the common carotid arteries bilaterally. There is plaque within the carotid bulbs bilaterally, without significant stenosis. The remainder of the internal carotid arteries appear patent bilaterally. No stenosis of the external carotid arteries is seen The vertebral arteries are patent bilaterally with no significant stenosis seen. The visualized thoracic aorta appears unremarkable There is multilevel degenerative disc disease and osteoarthritis of the cervical spine. Impression: Mild carotid atherosclerosis, without stenosis Electronically signed by Eitan Cho 02-28-2025 6:10 PM
--- NOTE | 2025-02-28 18:15 | CT Scan Report ---
Clinical History: Kidney pain Technique: Axial computed tomography images were obtained of the abdomen and pelvis after the administration of intravenous contrast. Comparison is made to the prior CT dated 01/08/2025. Findings: The liver is overall of normal size, attenuation, and contour with no sign of cirrhosis or significant fatty infiltration. No liver mass lesion is seen. The portal vein is patent. The gallbladder appears unremarkable. No bile duct dilatation is noted. The spleen is of normal size. No focal splenic lesion is evident. The pancreas appears normal with no sign of acute or chronic pancreatitis and no mass lesion noted. The pancreatic duct is of normal caliber. The adrenal glands appear unremarkable. No definite renal or proximal ureteral calculi are seen on this contrast-enhanced study. There is no hydronephrosis or perinephric stranding. No renal mass lesion is identified. There are bilateral renal cysts, measuring up to 2.5 cm in size The aorta is of normal caliber. No abdominal adenopathy is seen. The stomach appears normal. There is no sign of small bowel obstruction. There is sigmoid diverticulosis without evidence of diverticulitis. The appendix appears normal. No free intraperitoneal fluid or air is identified. No distal ureteral or bladder calculi are seen. The bladder is decompressed. The prostate is diminutive or absent. The iliac arteries are of normal caliber. No pelvic adenopathy is noted. There are small bilateral inguinal hernias containing only fat There is mild elevation of the right hemidiaphragm. There is mild bilateral lung base atelectasis. There is a right hip total arthroplasty. There is a fusion of L2-S1. No fracture is identified. No focal osseous lesion is seen Impression: 1. Bilateral renal cysts 2. Bilateral lung base atelectasis 3. Diverticulosis without evidence of diverticulitis 4. Small bilateral inguinal hernias containing only fat ACT 112: Positive. There are findings on this exam that require communication between the performing entity and the patient following Patient Test Result Information Act ([place] ACT 112) guidelines. Electronically signed by Eitan Cho 02-28-2025 6:14 PM
[2025-02-28 18:29] LABS: Appearance Urine Clear (Clear); Bacteria Urine Automated None Seen (None Seen); Bilirubin Urine Negative (Negative); Blood Urine Negative (Negative); Cast Urine Automated 0-2 /lpf (0-2); Color Urine Yellow; Epithelial Cell Urine Auto 0-2 /hpf (0-2); Glucose Urine UA Negative (Negative); Ketones Urine Negative (Negative); Leukocyte Esterase Urine 1+ (Negative); Nitrite Urine Negative (Negative); Protein Urine Negative (Negative); RBC Urine Automated 0-2 /hpf (0-2); Specific Gravity Urine 1.005 (1.000-1.030); Urobilinogen Urine Negative (Negative)
[2025-02-28] MEDS ORDERED: POLYETHYLENE (MIRALAX) 17 GM PACK PO PRN (23:08)
[2025-02-28] MEDS ORDERED: ACETAMINOPHEN 325 MG TAB PO PRN (23:08)
[2025-02-28] MEDS ORDERED: MELATONIN 3 MG TAB PO PRN (23:08)
--- NOTE | 2025-03-01 00:05 | History & Physical Report ---
Date of Service February 28, 2025 Assessment & Plan (1) Bladder cancer: (2) Dyslipidemia: (3) Gout: (4) Dizziness: (5) CKD (chronic kidney disease): (6) Neuropathy: (7) Anxiety and depression: Plan 69 Yo male with pmh of LBBB, A flutter, A fib, depression anxiety. asthma, go ut, chronic back pain, bladder cancer,BPH, Anemia presented to ED with recurrent dizziness since yesterday. He had LBBB in past and last ECG from Aug 2024 did not show LBBB, today's EKG shows LBBB. Hence his LBBB seems new onset for now. Admitted for tele observation and cardiology evaluation tomorrow. #Dizziness * Likely d/t dehydration vs Cardiac cause vs Orthostasis Vs Kidney stone clearance vs Anemia - Sx for 2 days, recurrent dizziness. - Neurology intact, no cardiac sx except limb swelling. - Vitals : HR on lower side( 52-68) , otherwise stable. - Labs: Hemoglobin below range, other benign including troponin, electrolytes and CMP, TSH. - Imaging: CTA head/ neck/ AP and chest Xray : no concerning or new findings to justify his presentation. - EKG:NSR, LBBB( when compared to 08/25/2024, now present) Plan: Admit Med/Surg tele Orthostatic vital in morning. Echocardiogram tomorrow for new LBBB. Cardiology consult for possible need of titration of [facility] meds[facility], who is fortunately manager production tomorrow) #New LBBB: - He had LBBB in past and last ECG from Aug 2024 did not show LBBB, today's EKG shows LBBB. Hence his LBBB seems new onset for now. - No ischemia Sx, no heart failure sx except baseline leg edema. - Heart and lung exam benign. - Could be 2/2 to Amiodarone use Plan: TTE for new LBBB. Cardiology consult # h/o Atrial fibrillation - h/o Atrial Fib, under Metoprolol 100 mg daily, amiodarone 200 mg daily and Eliquis 5mg BID. - Not aware of A fib after starting Amiodarone, however reports HR was as high as 150s on smart watch on 02/27. - Not sure if it was Afib or sinus. - no afib since presentation to ED, NSR throughout. plan: Will observe in telemetry. Amiodarone/ metoprolol might need dose adjustment given new LBBB-- Cardio consult. #Hematuria - One episode of blood stained underwear ON 02/28 morning. - Likely recent cystoscopy on 02/05 with Eliquis use. - Bleeding is not severe to hold Eliquis. - Plan to observe as imaging is non significant. - Urine CS pending. #Chronic issues -Extrinsic asthma: Stable. No medication changes at this time. -Depression/ Anxiety: Stable. continue home meds -Back pain, chronic: Stable. continue tramadol. -Neuropathy: Stable, continue gabapentin. -CKD (chronic kidney disease), stage III: Stable. continue home meds - Bladder cancer: Continue follow-up with urology. -Gout: Continue allopurinol. Hold indomethacin d/t elliquis use. Dispo: med/surg Tele Code status: Conditional, only CRP, no machine use. DVT prophylaxis: Elliquis continue 5 mg BID. History of Present Illness Primary Care Provider: Ronak Marie, III, BINMAN 69 Yo male with pmh of LBBB, A flutter, A fib, depression anxiety. asthma, gout, chronic back pain, bladder cancer,BPH, Anemia presented to ED with recurrent dizziness since yesterday. He was not feeling well since 02/24, when he had right flank pain, initially 6/10 on severity, non radiating, non migrating, dull aching type, insidious onset, which was relieved by 02/26. On 02/27 he felt dizzy in late morning when he was trying to get out of his house. It was transient and he continued with his daily work, however he kept feeling off whole day, with some nausea, loss of appetite, however no vomiting, no chest pain, SOB., no diarrhoea, no belly distension, no UTI sx, no URI sx, no headaches, no abnormal swelling of limbs, no blurring of vision. Endorses some baseline leg swelling, which has not progressed lately. Has some chronic tinnit us, no change recently. H/O knee and back surgery in past and has neuropathy in BL lower limbs, but no new change. No new weakness, tingling or focal changes that he is aware of. He has another episode of dizziness this morning as well while he was working on his lawn, remembers his HR was as high as 150s after episode of dizziness when he was climbing uphill at his backyard, but nothing felt like palpitation or anything funny in his chest. No sweating, no passing out, no new cough. He also notices some blood stain in his underwear this morning, but no bleeding after that, no flank pain today. Endorses h/o cystoscopy and biopsy at urology office on February and had no bleeding after that. no fever, no burning urine. Drinks at least 80 ounces of fluids each day, mostly water, 1 cup of coffee in morning and Gatorade sometimes. no Smoking, alcohol intake recently. Quit years ago. Regularly taking meds, keeps track of all his meds. No skipping of meals. Bowel habit is baseline constipated, has no BM today, yesterday was fine. PMH: reviewed Drug and allergy : reviewed. Allergies Allergy/AdvReac Type Severity Reaction Status Date / Time atorvastatin AdvReac Intermediate Joint Pain Verified 01/22/25 11:04 Home Medications Medication Instructions Recorded Confirmed Type lisinopril 40 mg tablet 40 mg PO QAM #90 tabs 12/22/23 02/28/25 Rx sodium bicarbonate 650 mg tablet 1,300 mg PO DAILY PRN SEE BELOW 01/24/24 02/28/25 History amlodipine 2.5 mg tablet 2.5 mg PO DAILY #90 tabs 05/08/24 02/28/25 Rx buspirone 15 mg tablet 15 mg PO BID #180 tabs 07/03/24 02/28/25 Rx apixaban 5 mg tablet (Eliquis) 5 mg PO BID #180 tabs 08/14/24 02/28/25 Rx metoprolol succinate 100 mg 100 mg PO DAILY #30 tabs 08/26/24 02/28/25 Rx tablet,extended release 24 hr gabapentin 300 mg capsule 300 mg PO HS #90 caps 11/27/24 02/28/25 Rx dutasteride 0.5 mg capsule 0.5 mg PO QPM #90 caps 12/11/24 02/28/25 Rx (Avodart) tramadol 50 mg tablet 50 mg PO BID PRN pain #60 tabs 01/02/25 02/28/25 Rx allopurinol 100 mg tablet 100 mg PO DAILY #90 tabs 01/17/25 02/28/25 Rx alprazolam 0.5 mg tablet (Xanax) 0.5 mg PO QAM PRN Anxiety #30 tabs 01/22/25 02/28/25 Rx amiodarone 200 mg tablet 200 mg PO DAILY 01/22/25 02/28/25 History indomethacin 25 mg capsule 25 mg PO TID #90 caps 01/22/25 02/28/25 Rx tamsulosin 0.4 mg capsule 0.4 mg PO HS 02/28/25 02/28/25 History Past Med/Surg History Problem List Left bundle branch block (Acute) Neuropathy CKD (chronic kidney disease) Dizziness (Acute) Asymptomatic hyperuricemia Bladder cancer (Chronic) s/p BCG treatment Obesity Microscopic hematuria Benign prostatic hyperplasia with urinary obstruction Dyslipidemia Anemia Gout (Chronic) Dry eyes Spinal stenosis, lumbar region with neurogenic claudication Insomnia (Chronic) Heart disease (Chronic) Extrinsic asthma (Chronic) Depression (Chronic) Chronic asthmatic bronchitis BPH (benign prostatic hyperplasia) (Chronic) Allergic rhinitis Medical History Ureteral stone BARB (acute kidney injury) LBBB (left bundle branch block) retirement (current) use of 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/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 Kidney stones Paroxysmal atrial fibrillation CKD (chronic kidney disease), stage III HTN (hypertension) Back pain, chronic Anxiety Hyperkalemia Allergic rhinitis Chronic back pain Heart disease History of anemia Dyslipidemia Environmental and seasonal allergies Bladder cancer (2022) s/p BCG treatment completed chemo 11/2023 Nausea and vomiting after administration of anesthetic agent 35 yr ago but many surgeries since without issues Urinary retention Was seen in ER in June 2021- had romeo catheter placed x 1 weeks- no issues since Romeo catheter removed CKD (chronic kidney disease), stage III follows with Dr. Anaya BPH (benign prostatic hyperplasia) Gout Recent gout episode x 1-2 days- started with left knee pain- now left toe Will check with surgeon's office to see if he can start on Colchicine - will contact PCP if symptoms continue/get worse Atrial fibrillation Dx 2019> follows with Dr. Quinteros > continues with palpitations- on Metoprolol - per cardio- takes extra Metoprolol and symptoms improve On Eliquis Kidney stones Currently under observation Degenerative disc disease Spinal stenosis Anxiety and depression Asthma stable > exercise induced > no res inh use Hypertension Surgical History Status post cystoscopy History of bronchoscopy S/P epidural steroid injection S/P cystoscopy w/ bx and cauterization of re-emerging tumors in bladder "found to be benign" S/P ureteral stent placement 08/18/21 Dr. Thaddeus Anaya- L retrograde pyelogram, L ureteral stent S/P TURP (transurethral resection of prostate) 08/18/21 Dr. Thaddeus Anaay at [facility]; also removed malignant bladder tumors at the same time History of cardiac catheterization 20 YRS AGO= NO STENTS; done in [place] History of colonoscopy with polypectomy History of shoulder surgery R X2 , L X1 History of total left knee replacement History of total right hip arthroplasty (~10/2016) History of fusion of cervical spine C4-C5 ACDF> ROM limited per pt History of lumbar fusion L2-S1 HDW 08/14/19 Dr. Renan Grullon- Removal of posterior instrumentation L4-5; Exploration of fusion L4-5; Lumbar decompression bilateral medial facetectomies and foraminotomies L2-3 L3-4 L5-S1; Posterior spinal fusion L2-3 L3-4 L4-5 L5-S1; Placement posterior segmental instrumentation from L2- S1; Interbody fusion L3-4 and L5-S1; Placement of titanium 11 x 26 mm cage at L3-4 and 12 x 26 mm cage at L5-S1; Placement of locally harvested morselized autograft in the posterior lateral gutters; Placement infuse collagen sponge, master graft in the posterior lateral gutters and ostial amp and interbody space. History of urologic surgery KIDNEY STONE REMOVAL Family History Father Family history of melanoma Osteoarthritis Hypertension Kidney malignant neoplasm Melanoma Cardiac disorder Myocardial infarction, Onset Age: 30 Mother Family history of colon cancer Denies family history of Ovarian cancer Prostate cancer Breast cancer Colorectal cancer Social History Smoking Status: Never smoker Second Hand Exposure: No; Do You Dip or Chew Tobacco: No; Hx Alcohol Use: No Hx Substance Use: No Preferred Language: Mongolian Communication Ability: Effective Visual Impairment: Partially Limited Hearing Ability: Hard of Hearing Customer Engagement Representative Required: No Beliefs That Will Affect Care: None marital status: Current Living Situation: Spouse current occupational status: retired 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 How many Children do You have: 0 Other Information That Helps Us Care for You: No Feels Safe at Home: Yes Safety Concerns: Feels Safe At This Time Childhood Exposure to Second-Hand Smoke: Yes Diet: low carbohydrate and regular Diet Comment: low added sugars caffeine: Yes Dental Care, Regularly: No Physical Activity Frequency: Daily Physical Activity Frequency Comment: walks 3 times a day Seatbelt Use: always Sunscreen Use: Yes Assistive Devices: Glasses Review of Systems Review of Systems: As per HPI Physical Exam Physical Exam: Constitutional: Well appearing, No acute distress, BL legs pitting edema upto knee, L> R. HEENT: Atraumatic, Normocephalic, No conjunctival injection CVS: S1 S2 no murmur, Regular Rhythm, no LE edema Respiratory: BL equal air entry with NVBS. No rhonchi, wheezes, or crackles. No increased work of breathing GI: Soft, Nondistended, Nontender, Normal Bowel sounds + MSK: No gross deformities noted Skin: Warm, Dry, No rashes Neuro: Alert, Oriented to TPP, No Focal deficit, CN grossly intact. Psych: Mood and Affect congruent, Cooperative on exam Results & Data Results & Data Vital Signs (Past 12 Hours) Vital Signs Temp Pulse Pulse Resp BP BP Pulse Ox 02/28/25 21:56 65 02/28/25 21:00 63 18 153/81 H 92 02/28/25 19:03 67 18 173/86 H 95 02/28/25 18:21 112/73 02/28/25 17:06 68 94 02/28/25 17:00 58 L 23 93 02/28/25 16:54 63 18 96 02/28/25 16:30 60 24 95 02/28/25 16:28 64 02/28/25 15:45 97 02/28/25 15:45 15 02/28/25 15:45 97 02/28/25 15:31 36.9 C 64 19 190/84 H 95 O2 Del Method O2 Flow Rate 02/28/25 21:56 02/28/25 21:00 02/28/25 19:03 Room Air 02/28/25 18:21 02/28/25 17:06 02/28/25 17:00 02/28/25 16:54 02/28/25 16:30 02/28/25 16:28 02/28/25 15:45 Room Air 02/28/25 15:45 02/28/25 15:45 Room Air 0 02/28/25 15:31 Room Air Laboratory Results Laboratory Results WBC 5.86 K/ul (4.8-10.8) 02/28/25 15:41 RBC 4.61 M/uL (4.70-6.10) L 02/28/25 15:41 Hgb 13.2 g/dl (14.0-18.0) L 02/28/25 15:41 Hct 41.1 % (42.0-52.0) L 02/28/25 15:41 MCV 89.2 fL (80.0-100.0) 02/28/25 15:41 MCH 28.6 pg (25.0-34.0) 02/28/25 15:41 MCHC 32.1 g/dL (32.0-36.0) 02/28/25 15:41 RDW Std Deviation 50.1 fL (36.4-46.3) H 02/28/25 15:41 RDW Coeff of Leslie 15.3 % (11.5-14.5) H 02/28/25 15:41 Plt Count 161 K/uL (130-400) 02/28/25 15:41 MPV 10.6 fL (9.4-12.4) 02/28/25 15:41 Immature Gran % (Auto) 0.9 % 02/28/25 15:41 Neut % (Auto) 66.3 % 02/28/25 15:41 Lymph % (Auto) 16.7 % 02/28/25 15:41 [place] % (Auto) 11.3 % 02/28/25 15:41 Eos % (Auto) 4.3 % 02/28/25 15:41 Baso % (Auto) 0.5 % 02/28/25 15:41 Neut # (Auto) 3.89 K/uL (1.40-6.50) 02/28/25 15:41 Lymph # (Auto) 0.98 K/uL (1.20-3.40) L 02/28/25 15:41 [place] # (Auto) 0.66 K/uL (0.11-0.59) H 02/28/25 15:41 Eos # (Auto) 0.25 K/uL (0.00-0.50) 02/28/25 15:41 Baso # (Auto) 0.03 K/uL (0.00-0.20) 02/28/25 15:41 Immature Gran # (Auto) 0.05 K/uL (0.01-0.20) 02/28/25 15:41 PT 11.9 Seconds (9.0-12.0) 02/28/25 15:41 INR 1.1 (0.9-1.1) 02/28/25 15:41 Sodium 138 mmol/L (136-145) 02/28/25 15:41 Potassium 4.4 mmol/L (3.5-5.1) 02/28/25 15:41 Chloride 104 mmol/L (98-107) 02/28/25 15:41 Carbon Dioxide 28 mmol/L (21-32) 02/28/25 15:41 Anion Gap 6 (3-11) 02/28/25 15:41 BUN 15 mg/dl (6-23) 02/28/25 15:41 Creatinine 1.31 mg/dl (0.6-1.4) 02/28/25 15:41 Est Cr Clr Drug Dosing 65.4 ml/min 02/28/25 15:41 eGFR 58.56 02/28/25 15:41 BUN/Creatinine Ratio 11.5 (10-20) 02/28/25 15:41 Glucose 99 mg/dl (70-99(Fasting)) 02/28/25 15:41 Calcium 9.7 mg/dl (8.6-10.3) 02/28/25 15:41 Phosphorus 2.1 mg/dl (2.5-4.9) L 02/28/25 15:41 Magnesium 1.9 mg/dl (1.7-2.4) 02/28/25 15:41 Total Bilirubin 0.6 mg/dl (0.2-1.0) 02/28/25 15:41 AST 19 U/L (13-39) 02/28/25 15:41 ALT 19 U/L (7-52) 02/28/25 15:41 Alkaline Phosphatase 60 U/L (34-104) 02/28/25 15:41 Troponin I High Sens 3.3 pg/ml (0-20) 02/28/25 15:41 Total Protein 6.9 gm/dl (6.0-8.3) 02/28/25 15:41 Albumin 4.1 gm/dl (3.4-5.0) 02/28/25 15:41 Globulin 2.8 gm/dl (2.5-4.0) 02/28/25 15:41 Albumin/Globulin Ratio 1.5 (0.9-2) 02/28/25 15:41 Lipase 26 U/L (11-82) 02/28/25 15:41 TSH 4.194 uIu/ml (0.300-4.500) 02/28/25 15:41 Urine Color Yellow 02/28/25 17:37 Urine Appearance Clear (Clear) 02/28/25 17:37 Urine pH 6.0 (4.5-7.5) 02/28/25 17:37 Ur Specific [place] 1.005 (1.000-1.030) 02/28/25 17:37 Urine Protein Negative (Negative) 02/28/25 17:37 Urine Glucose (UA) Negative (Negative) 02/28/25 17:37 Urine Ketones Negative (Negative) 02/28/25 17:37 Urine Blood Negative (Negative) 02/28/25 17:37 Urine Nitrite Negative (Negative) 02/28/25 17:37 Urine Bilirubin Negative (Negative) 02/28/25 17:37 Urine Urobilinogen Negative (Negative) 02/28/25 17:37 Ur Leukocyte Esterase 1+ (Negative) H 02/28/25 17:37 Urine WBC (Auto) 11-20 /hpf (0-5) H 02/28/25 17:37 Urine RBC (Auto) 0-2 /hpf (0-2) 02/28/25 17:37 U Hyaline Cast (Auto) 0-2 /lpf (0-2) 02/28/25 17:37 U Epithel Cells (Auto) 0-2 /hpf (0-2) 02/28/25 17:37 Urine Bacteria (Auto) None Seen (None Seen) 02/28/25 17:37 Impressions Chest X-Ray 02/28/25 15:37 EXAM: Portable AP chest radiograph TECHNIQUE: AP portable radiograph of the chest was obtained. INDICATION: Shortness of breath Comparison: Chest radiograph August 25, 2024 FINDINGS: LINES and TUBES: None CARDIOVASCULAR: Cardiac silhouette is stably enlarged in size. LUNGS/PLEURA: Mild pulmonary vascular congestion, somewhat increased compared to previous with similar degree of ventilation. Bibasilar densities are likely atelectasis though airspace disease not excluded. No significant pleural fluid. No discernible pneumothorax. OSSEOUS/OTHER: No displaced acute osseous process identified. ACDF hardware. IMPRESSION: Pulmonary vascular congestion appears to have mildly increased from previous. Bibasilar densities may be atelectasis though airspace disease is not excluded. Electronically signed by Surinder Jean-Baptiste 02-28-2025 4:30 PM Abdomen/Pelvis CT 02/28/25 16:53 Clinical History: Kidney pain Technique: Axial computed tomography images were obtained of the abdomen and pelvis after the administration of intravenous contrast. Comparison is made to the prior CT dated 01/08/2025. Findings: The liver is overall of normal size, attenuation, and contour with no sign of cirrhosis or significant fatty infiltration. No liver mass lesion is seen. The portal vein is patent. The gallbladder appears unremarkable. No bile duct dilatation is noted. The spleen is of normal size. No focal splenic lesion is evident. The pancreas appears normal with no sign of acute or chronic pancreatitis and no mass lesion noted. The pancreatic duct is of normal caliber. The adrenal glands appear unremarkable. No definite renal or proximal ureteral calculi are seen on this contrast-enhanced study. There is no hydronephrosis or perinephric stranding. No renal mass lesion is identified. There are bilateral renal cysts, measuring up to 2.5 cm in size The aorta is of normal caliber. No abdominal adenopathy is seen. The stomach appears normal. There is no sign of small bowel obstruction. There is sigmoid diverticulosis without evidence of diverticulitis. The appendix appears normal. No free intraperitoneal fluid or air is identified. No distal ureteral or bladder calculi are seen. The bladder is decompressed. The prostate is diminutive or absent. The iliac arteries are of normal caliber. No pelvic adenopathy is noted. There are small bilateral inguinal hernias containing only fat There is mild elevation of the right hemidiaphragm. There is mild bilateral lung base atelectasis. There is a right hip total arthroplasty. There is a fusion of L2-S1. No fracture is identified. No focal osseous lesion is seen Impression: 1. Bilateral renal cysts 2. Bilateral lung base atelectasis 3. Diverticulosis without evidence of diverticulitis 4. Small bilateral inguinal hernias containing only fat ACT 112: Positive. There are findings on this exam that require communication between the performing entity and the patient following Patient Test Result Information Act ([place] ACT 112) guidelines. Electronically signed by Eitan Cho 02-28-2025 6:[address] 02/28/25 16:53 Technique: Axial computed tomography images were obtained of the brain from the vertex to the skull base without intravenous contrast. Findings: There is no sign of intracranial hemorrhage. There is normal franco-white matter differentiation with no sign of acute or old infarction. No midline shift or other form of herniation is identified. There is no hydrocephalus. No obvious mass lesion is seen on this noncontrast examination. There is a small amount of fluid in the maxillary sinuses bilaterally. The mastoid air cells appear clear Impression: 1. Normal-appearing brain 2. Maxillary sinusitis Electronically signed by Eitan Cho 02-28-2025 6:05 PM Head CTA 02/28/25 16:53 Clinical history: Dizziness and blurred vision Technique: Axial computed tomography images were obtained of the brain after the administration of intravenous contrast according to the CT angiogram protocol Findings: There is calcified plaque within the cavernous and supraclinoid segments of the internal carotid arteries bilaterally, without stenosis No definite stenosis or aneurysm is seen of the anterior, middle, or posterior cerebral artery circulations. The visualized vertebral arteries and the basilar artery appear unremarkable Impression: No definite stenosis or aneurysm of the intracranial arteries Electronically signed by Eitan Cho 02-28-2025 6:07 PM Neck CTA 02/28/25 16:53 Clinical history: Dizziness and blurred vision Technique: Axial computed tomography images were obtained of the neck after the administration of intravenous contrast according to the CT angiogram protocol Findings: No stenosis is seen in the common carotid arteries bilaterally. There is plaque within the carotid bulbs bilaterally, without significant stenosis. The remainder of the internal carotid arteries appear patent bilaterally. No stenosis of the external carotid arteries is seen The vertebral arteries are patent bilaterally with no significant stenosis seen. The visualized thoracic aorta appears unremarkable There is multilevel degenerative disc disease and osteoarthritis of the cervical spine. Impression: Mild carotid atherosclerosis, without stenosis Electronically signed by Eitan Cho 02-28-2025 6:10 PM Code Status & VTE Plan VTE Prophylaxis Plan VTE Prophylaxis will be ordered: Yes Supervising Physician Co-Signing Physician Notes Patient seen and examined, chart reviewed, case discussed with Dr. Lucas And I agree with the assessment plan as documented above. In brief, patient is a 69-year-old female with history of renal stones, paroxysmal atrial fibrillation on the area amiodarone and metoprolol as well as hypertension and hyperlipidemia presenting with several episodes of dizziness. Patient reports these episodes typically occur from changing positionssitting to standing. He denies chest pain, palpitations, focal numbness/tingling/weakness. No additional complaints at this time On exam patient is afebrile, hemodynamically stable, no acute distress Generalnontoxic in appearance, awake alert and oriented x 4 HEENTmoist mucous membranes, neck supple Heart+ S1, S2, regular, no murmur/rub/gallops LungsCTA, no rales/rhonchi/wheezes Abdomen+ bowel sounds, soft, nontender, nondistended Extremitieswarm, well-perfused Labs and images reviewed Hgb = 13.2, HCT = 41.1, pO4 = 2.1 EKG with left bundle branch block. Did have left bundle document on EKG in the past associated with atrial flutter and atrial fibrillation Assessment/plan Dizzinessquestion medication effects versus orthostasis Check orthostatic vital signs New left bundle branch blockpossibly secondary to progression of conduction disease versus medication effects. Patient denies chest pain Check 2D echo Cardiology consult Remainder as above Resident Activity Tracking Resident Involvement: Resident Care Provided Care Provided: Adult Hospital Medicine (1) Bladder cancer Bladder location: unspecified site Qualified Code(s): C67.9 - Malignant neop lasm of bladder, unspecified (3) Gout Chronicity: chronic Gout etiology: idiopathic Gout site: multiple sites Presence of tophus: without tophus Qualified Code(s): M1A.09X0 - Idiopathic chronic gout, multiple sites, without tophus (tophi)
[2025-03-01] MEDS: APIXABAN 5 MG TABLET PO ONE (00:07)
[2025-03-01] MEDS: allopurinoL 100 MG TAB PO STA (00:07)
[2025-03-01] MEDS: busPIRone 15 MG TAB PO STA (00:07)
[2025-03-01] MEDS: GABAPENTIN 300 MG CAP PO STA (00:07)
[2025-03-01] MEDS: TAMSULOSIN HCL 0.4 MG CAP PO ONE (00:07)
[2025-03-01] MEDS ORDERED: ALPRAZolam 0.5 MG TABLET PO PRN (00:47)
[2025-03-01] MEDS ORDERED: SODIUM BICARBONATE 650 MG TAB PO PRN (00:47)
[2025-03-01] MEDS ORDERED: traMADol HCL 50 MG TABLET PO PRN (00:47)
--- NOTE | 2025-03-01 02:04 | Billing Data ---
Date of Service February 28, 2025 Coding Level of Care Code 13433 INT INP/OBS CARE
[2025-03-01] MEDS: AMIODARONE 200 MG TAB PO SCH (07:42)
[2025-03-01] MEDS: lisinopril 40 MG TAB PO SCH (07:43)
[2025-03-01] MEDS: APIXABAN 5 MG TABLET PO SCH (07:43)
[2025-03-01] MEDS: METOPROLOL SUCC 50MG EXT REL TAB PO SCH (07:43)
[2025-03-01] MEDS: busPIRone 15 MG TAB PO SCH (07:43)
[2025-03-01] MEDS: amLODIPine BESYLATE 5 MG TAB PO SCH (07:45)
[2025-03-01 07:50] VITALS: RESP 20; TEMP 98.1; O2SAT 91
--- NOTE | 2025-03-01 10:09 | Cardiology Consultation ---
Date of Consultation March 01, 2025 Assessment & Plan (1) Near syncope: (2) Left bundle branch block: (3) Paroxysmal atrial fibrillation: (4) Olayinka-tachy syndrome: Plan Suspect he can be DC to home at this time. Will arrange for MCOT monitor. Will have him cut his amiodarone to 100mg MWF and 200mg ROW for now. We discussed that he is a candidate for a Watchman given his ongoing urinary issues. In addition, he has had a very good response to the amiodarone, however whhen his Afib occurs tends to be very tachy. Will try to keep him on the lowest dose of amio possible. Will follow TFTs and LFTs as outpatient. Hold off on ablation for now. Will review with Dr. Collazo as well. Thanks you for allowing me to participate in the care of this very nice man. I will see in the office in March. History of Present Illness Reason for Consultation: hx PAF, intermittent LBBB Attending Physician: Justice Antunez MD History of Present Illness 69 Yo male with pmh of LBBB, A flutter, A fib s/p cardioversion on amiodarone, depression anxiety. asthma, gout, chronic back pain, bladder cancer, BPH, Anemia presented to ED with recurrent dizziness since yesterday. He was at [facility], getting out of his car and felt profoundly dizzy for several seconds. He had LBBB in past and last ECG from Aug 2024 did not show LBBB, today's EKG shows LBBB. Hence his LBBB seems new onset for now. He was to have Afib ablation back in November after seeing Dr. Collazo, but unfortunately developed issues with urinary bleeding, requiring interruption of his NOAC so this was put on hold. He feels that the Afib has been very well controlled and has not had any sustained episodes. His resting HR tens to run in the 50s, at times in the 40s while resting. Allergies Allergy/AdvReac Type Severity Reaction Status Date / Time atorvastatin AdvReac Intermediate Joint Pain Verified 01/22/25 11:04 Home Medications Medication Instructions Recorded Confirmed Type lisinopril 40 mg tablet 40 mg PO QAM #90 tabs 12/22/23 02/28/25 Rx amlodipine 2.5 mg tablet 2.5 mg PO DAILY #90 tabs 05/08/24 02/28/25 Rx buspirone 15 mg tablet 15 mg PO BID #180 tabs 07/03/24 02/28/25 Rx apixaban 5 mg tablet (Eliquis) 5 mg PO BID #180 tabs 08/14/24 02/28/25 Rx metoprolol succinate 100 mg 100 mg PO DAILY #30 tabs 08/26/24 02/28/25 Rx tablet,extended release 24 hr gabapentin 300 mg capsule 300 mg PO HS #90 caps 11/27/24 02/28/25 Rx dutasteride 0.5 mg capsule 0.5 mg PO QPM #90 caps 12/11/24 02/28/25 Rx (Avodart) tramadol 50 mg tablet 50 mg PO BID PRN pain #60 tabs 01/02/25 02/28/25 Rx allopurinol 100 mg tablet 100 mg PO DAILY #90 tabs 01/17/25 02/28/25 Rx alprazolam 0.5 mg tablet (Xanax) 0.5 mg PO QAM PRN Anxiety #30 tabs 01/22/25 02/28/25 Rx indomethacin 25 mg capsule 25 mg PO TID #90 caps 01/22/25 02/28/25 Rx tamsulosin 0.4 mg capsule 0.4 mg PO HS 02/28/25 02/28/25 History amiodarone 100 mg tablet See Rx Instructions .Route 03/01/25 Rx .COMPLEX #44 tabs amoxicillin 500 mg-potassium 1 tab PO BID 10 days #20 tabs 03/02/25 Rx clavulanate 125 mg tablet (Augmentin) Patient History Medical History Ureteral stone BARB (acute kidney injury) LBBB (left bundle branch block) 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/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 Kidney stones Paroxysmal atrial fibrillation CKD (chronic kidney disease), stage III HTN (hypertension) Back pain, chronic Anxiety Hyperkalemia Allergic rhinitis Chronic back pain Heart disease History of anemia Dyslipidemia Environmental and seasonal allergies Bladder cancer (2022) s/p BCG treatment completed chemo 11/2023 Nausea and vomiting after administration of anesthetic agent 35 yr ago but many surgeries since without issues Urinary retention Was seen in ER in June 2021- had romeo catheter placed x 1 weeks- no issues since Romeo catheter removed CKD (chronic kidney disease), stage III follows with Dr. Anaya BPH (benign prostatic hyperplasia) Gout Recent gout episode x 1-2 days- started with left knee pain- now left toe Will check with surgeon's office to see if he can start on Colchicine - will contact PCP if symptoms continue/get worse Atrial fibrillation Dx 2019> follows with Dr. Quinteros > continues with palpitations- on Metoprolol - per cardio- takes extra Metoprolol and symptoms improve On Eliquis Kidney stones Currently under observation Degenerative disc disease Spinal stenosis Anxiety and depression Asthma stable > exercise induced > no res inh use Hypertension Surgical History Status post cystoscopy History of bronchoscopy S/P epidural steroid injection S/P cystoscopy w/ bx and cauterization of re-emerging tumors in bladder "found to be benign" S/P ureteral stent placement 08/18/21 Dr. Thaddeus Anaya- L retrograde pyelogram, L ureteral stent S/P TURP (transurethral resection of prostate) 08/18/21 Dr. Thaddeus Anaya at [facility]; also removed malignant bladder tumors at the same time History of cardiac catheterization 20 YRS AGO= NO STENTS; done in [place] History of colonoscopy with polypectomy History of shoulder surgery R X2 , L X1 History of total left knee replacement History of total right hip arthroplasty (~10/2016) History of fusion of cervical spine C4-C5 ACDF> ROM limited per pt History of lumbar fusion L2-S1 HDW 08/14/19 Dr. Renan Grullon- Removal of posterior instrumentation L4-5; Exploration of fusion L4-5; Lumbar decompression bilateral medial facetectomies and foraminotomies L2-3 L3-4 L5-S1; Posterior spinal fusion L2- 3 L3-4 L4-5 L5-S1; Placement posterior segmental instrumentation from L2-S1; Interbody fusion L3-4 and L5-S1; Placement of titanium 11 x 26 mm cage at L3- 4 and 12 x 26 mm cage at L5-S1; Placement of locally harvested morselized autograft in the posterior lateral gutters; Placement infuse collagen sponge, master graft in the posterior lateral gutters and ostial amp and interbody space. History of urologic surgery KIDNEY STONE REMOVAL Family History Father Family history of melanoma Osteoarthritis Hypertension Kidney malignant neoplasm Melanoma Cardiac disorder Myocardial infarction, Onset Age: 30 Mother Family history of colon cancer Denies family history of Ovarian cancer Prostate cancer Breast cancer Colorectal cancer Social History Smoking Status: Never smoker Second Hand Exposure: No; Do You Dip or Chew Tobacco: No; Hx Alcohol Use: No Hx Substance Use: No Preferred Language: Indonesian Communication Ability: Effective Visual Impairment: Partially Limited Hearing Ability: Hard of Hearing Glass Sander Required: No Beliefs That Will Affect Care: None marital status: Current Living Situation: Spouse current occupational status: retired 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 How many Children do You have: 0 Feels Safe at Home: Yes Childhood Exposure to Second-Hand Smoke: Yes Diet: low carbohydrate and regular Diet Comment: low added sugars caffeine: Yes Dental Care, Regularly: No Physical Activity Frequency: Daily Physical Activity Frequency Comment: walks 3 times a day Seatbelt Use: always Sunscreen Use: Yes Assistive Devices: Cane, Stair Lift and Walker Review of Systems Review of Systems: All systems reviewed & are unremarkable except as noted in HPI & below Physical Exam Physical Exam: AAO x 3 in NAD Respiratory: normal respiratory effort, lungs clear to auscultation Cardiovascular: RRR, no murmur, no edema Results & Data Vital Signs (Past 12 Hours) Vital Signs Temp Pulse Pulse Resp BP BP Pulse Ox 03/01/25 07:50 36.7 C 59 L 20 139/76 91 03/01/25 07:22 54 L 03/01/25 04:01 36.4 C L 54 L 18 108/63 94 03/01/25 00:46 68 03/01/25 00:35 03/01/25 00:35 36.9 C 71 18 160/76 H 93 03/01/25 00:26 36.8 C 66 17 134/89 94 02/28/25 23:30 69 19 164/86 H 93 O2 Del Method 03/01/25 07:50 Room Air 03/01/25 07:22 03/01/25 04:01 Room Air 03/01/25 00:46 03/01/25 00:35 Room Air 03/01/25 00:35 Room Air 03/01/25 00:26 Room Air 02/28/25 23:30 Room Air Laboratory Results Abnormal lab results 02/28/25 02/28/25 Range/Units 15:41 17:37 RBC 4.61 L (4.70-6.10) M/uL Hgb 13.2 L (14.0-18.0) g/dl Hct 41.1 L (42.0-52.0) % RDW Std Deviation 50.1 H (36.4-46.3) fL RDW Coeff of Leslie 15.3 H (11.5-14.5) % Lymph # (Auto) 0.98 L (1.20-3.40) K/uL [place] # (Auto) 0.66 H (0.11-0.59) K/uL Phosphorus 2.1 L (2.5-4.9) mg/dl Ur Leukocyte Esterase 1+ H (Negative) Urine WBC (Auto) 11-20 H (0-5) /hpf
--- NOTE | 2025-03-01 11:10 | Discharge Summary ---
Discharge Summary Date of Service March 01, 2025 Principal Dx & Hospital Course #1 = Principal Diagnosis (1) Bladder cancer: (2) Dyslipidemia: (3) Gout: (4) Dizziness: (5) CKD (chronic kidney disease): (6) Neuropathy: (7) Anxiety and depression: Plan 69 Yo male with pmh of LBBB, A flutter, A fib, depression anxiety. asthma, gout, chronic back pain, bladder cancer,BPH, Anemia presented to ED with recurrent dizziness since yesterday. He had LBBB in past and last ECG from Aug 2024 did not show LBBB, admit EKG shows LBBB. Dizziness Suspect orthostatic/volume contracted 2/2 UTI - Echo was with hyperdynamic function and patient clinically dry on assessment. Improved with encouraged oral intake Will follow-up with cardiology who were consulted during admission. Will have outpatient mobile telemetry. Cardiac meds adjusted as notedreturn precautions discussed, oral fluid/water intake encouraged UTI Initial random urine with low counts of E. coli, subsequent clean-catch urine with high colony counts of E. coli Distant history of Pseudomonas, no history of ESBL E. coli infections Received 1 dose of Rocephin during admission. Was prescribed cefdinir to complete 5-day course of antibiotics in outpatient for UTI Atrial fibrillation, new left bundle branch block Cardiology consulted during admission. No evidence of acute ischemic disease. Amiodarone reduced to 100 mg Wednesday, 200 mg Wednesday//Wednesday/Wednesday. Echo with small LV/hyperdynamic but without acute wall motion abnormalities. Continue outpatient follow-up Troponin normal during admission. No chest pain at time of reassessment/discharge assessment Eliquis continued although given recurrent episodes of hematuria can be evaluated as outpatient for Watchman procedure Lyme testing was ordered during admission due to tick bites, this was negative TTE: LVEF hyperdynamic greater than 70%. Grade 1 diastolic dysfunction. LV septum moves normally despite LBBB. Sinus at time of testing. Tick bites 1 engorged tick bite, second nonengorged tick bite in the last week Lyme testing negative No erythema migrans, no polyarthralgia Hematuria Eliquis continued as bleeding was not hemodynamically significant. Continue to reevaluate on follow-up and will be followed for potential Watchman procedure as outpatient #Chronic issues -Extrinsic asthma: Stable. No medication changes at this time. -Depression/ Anxiety: Stable. continue home meds -Back pain, chronic: Stable. continue tramadol. -Neuropathy: Stable, continue gabapentin. -CKD (chronic kidney disease), stage III: Stable. - Bladder cancer: Continue follow-up with urology. -Gout: Continue allopurinol. Admission HPI Per Admitting Provider 69 Yo male with pmh of LBBB, A flutter, A fib, depression anxiety. asthma, gout, chronic back pain, bladder cancer,BPH, Anemia presented to ED with recurrent dizziness since yesterday. He was not feeling well since 02/24, when he had right flank pain, initially 04/17 on severity, non radiating, non migrating, dull aching type, insidious onset, which was relieved by 02/26. On 02/27 he felt dizzy in late morning when he was trying to get out of his house. It was transient and he continued with his daily work, however he kept feeling off whole day, with some nausea, loss of appetite, however no vomiting, no chest pain, SOB., no diarrhoea, no belly distension, no UTI sx, no URI sx, no headaches, no abnormal swelling of limbs, no blurring of vision. Endorses some baseline leg swelling, which has not progressed lately. Has some chronic tinnitus, no change recently. H/O knee and back surgery in past and has neuropathy in BL lower limbs, but no new change. No new weakness, tingling or focal changes that he is aware of. He has another episode of dizziness this morning as well while he was working on his lawn, remembers his HR was as high as 150s after episode of dizziness when he was climbing uphill at his backyard, but nothing felt like palpitation or anything funny in his chest. No sweating, no passing out, no new cough. He also notices some blood stain in his underwear this morning, but no bleeding after that, no flank pain today. Endorses h/o cystoscopy and biopsy at urology office on of February and had no bleeding after that. no fever, no burning urine. Drinks at least 80 ounces of fluids each day, mostly water, 1 cup of coffee in morning and Gatorade sometimes. no Smoking, alcohol intake recently. Quit years ago. Regularly taking meds, keeps track of all his meds. No skipping of meals. Bowel habit is baseline constipated, has no BM today, yesterday was fine. PMH: reviewed Drug and allergy : reviewed. Discharge Exam General: A&Ox3. NAD. Cooperative. HEENT: Atraumatic, normocephalic. Vision and hearing grossly intact Pulm: CTAB A&P. -wheezes, -rales, -rhonchi. Symmetrical chest rise. No increased work of breathing. No respiratory distress. Cardiac: RRR, -mrg. Radial pulses intact and symmetrical. Abdominal: Nontender, nondistended, soft. BS present. Discharge Plan Discharge Items Patient Disposition: Home - Home Health Services Reason For Visit: DIZZINESS Discharge Diagnosis: Dizziness, orthostasis/volume contraction UTI Activity: Resume your previous activity Non-emergency contact: Transplant Nurse Practitioner Call non-emergency contact if: you have any medication questions, your symptoms worsen and your pain is not controlled Follow-up/Referrals: Ronak Marie III, CRNP [Primary Care Provider] - 03/09/25 10:20 am Diet: Heart Healthy Addtl Attending Provider Instructions: You are seen in the hospital for dizziness. You are found to have a left bundle branch block, a type of electrical abnormality on your EKG. You were seen by cardiology and medication adjustments were made as noted below. Follow-up is being arranged for you with cardiology, and for a mobile telemetry unit. You were able to ambulate independently with nursing without lightheadedness or dizziness at time of discharge. Lyme testing was performed due to recent tick bites, your Lyme testing was negative. Rarely you can have a false negative test, if you have fever/chills/sweats or a spreading rash please discuss with your primary care physician and consider retesting versus empiric treatment. Antibiotics were not indicated at time of evaluation. Your amiodarone dosing has been changed as noted. Please take amiodarone 100mg on Wednesday\Wednesday/Wednesday, and 200 mg on Wednesday//Wednesday/Wednesday You were found to have a urinary tract infection. Your initial urine culture showed low counts of E. coli however a repeat clean-catch urine showed high colony counts of E. coli. You were given a dose of ceftriaxone, and continued on an antibiotic called cefdinir. Please take cefdinir 30 mg by mouth twice daily for 5 days to complete a course of treatment for UTI. Final sensitivities were not available at time of discharge, there is a chance that E. coli can test positive for additional resistance and your antibiotic may need to be changed. Please let your primary care provider know to double check on the final culture results, and if you have any worsening symptoms including fever/chills/sweats/burning with urination or other symptoms please seek medical reevaluation If you develop any new or worsening symptoms including fever, chills, sweats, chest pain, chest pressure, difficulty breathing, uncontrolled nausea/vomiting, rash, wheezing, passing out or nearly passing out, bleeding, black/bloody bowel movements, or other new or concerning symptoms please call your primary care physician, or call 911 for re-evaluation in the emergency department if you are very concerned. Pending Studies at Discharge: No Stand-Alone Forms: My [facility], Smoking Cessation Medications and DC Order Prescriptions: New amiodarone 100 mg tablet See Rx Instructions .ROUTE .COMPLEX Qty: 44 0RF Rx Instructions: Take 100mg Wed/Wed/Wed. Take 200mg /// cefdinir 300 mg capsule 300 mg PO BID 5 Days Qty: 10 0RF Continued lisinopril 40 mg tablet 40 mg PO QAM Qty: 90 3RF amlodipine 2.5 mg tablet 2.5 mg PO DAILY Qty: 90 3RF buspirone 15 mg tablet 15 mg PO BID Qty: 180 3RF Eliquis 5 mg tablet 5 mg PO BID Qty: 180 3RF gabapentin 300 mg capsule 300 mg PO HS Qty: 90 3RF dutasteride [Avodart] 0.5 mg capsule 0.5 mg PO QPM Qty: 90 3RF tramadol 50 mg tablet 50 mg PO BID PRN (Reason: pain) Qty: 60 0RF allopurinol 100 mg tablet 100 mg PO DAILY Qty: 90 3RF sodium bicarbonate 650 mg tablet 1,300 mg PO DAILY PRN (Reason: SEE BELOW) Rx Instructions: Take 1300 mg the evening before and the day of intravesical therapy. indomethacin 25 mg capsule 25 mg PO TID Qty: 90 0RF Rx Instructions: administer with food or milk alprazolam [Xanax] 0.5 mg tablet 0.5 mg PO QAM PRN (Reason: Anxiety) Qty: 30 2RF tamsulosin 0.4 mg capsule 0.4 mg PO HS metoprolol succinate 100 mg tablet extended release 24 hr 100 mg PO DAILY Qty: 30 0RF Discontinued amiodarone 200 mg tablet 200 mg PO DAILY Discharge Orders: Discharge Order (Routine); Ordered 03/01/25 Ordered By: Justice Antunez Admission Data Admit Date/Time: 02/28/25 23:08 Attending Provider: Justice Antunez Admit Provider: Judi Lucas Primary Care Provider: Ronak Marie III Other Providers: Leonarda Disla; Yeimi Murray Other Interventions: Discharge Summary Assessment (RN) Last Done: 03/01/25 13:17 Hospital Stay Data Consultations 02/28/25 21:59 ED Decision to Admit Stat 02/28/25 23:38 Consult Cardiology Routine Diagnostic Imagining Performed 02/28/25 16:53 CT abd pelvis IV con only Stat CT angio head w con Stat CT angio neck with con Stat CT head/brain wo con Stat Discharge Instructions Given to Patient (Per Discharging Provider) You are seen in the hospital for dizziness. You are found to have a left bundle branch block, a type of electrical abnormality on your EKG. You were seen by cardiology and medication adjustments were made as noted below. Follow-up is being arranged for you with cardiology, and for a mobile telemetry unit. You were able to ambulate independently with nursing without lightheadedness or dizziness at time of discharge. Lyme testing was performed due to recent tick bites, your Lyme testing was negative. Rarely you can have a false negative test, if you have fever/chills/sweats or a spreading rash please discuss with your primary care physician and consider retesting versus empiric treatment. Antibiotics were not indicated at time of evaluation. Your amiodarone dosing has been changed as noted. Please take amiodarone 100mg on Wednesday\Wednesday/Wednesday, and 200 mg on Wednesday//Wednesday/Wednesday You were found to have a urinary tract infection. Your initial urine culture showed low counts of E. coli however a repeat clean-catch urine showed high colony counts of E. coli. You were given a dose of ceftriaxone, and continued on an antibiotic called cefdinir. Please take cefdinir 30 mg by mouth twice daily for 5 days to complete a course of treatment for UTI. Final sensitivities were not available at time of discharge, there is a chance that E. coli can test positive for additional resistance and your antibiotic may need to be changed. Please let your primary care provider know to double check on the final culture results, and if you have any worsening symptoms including fever/chills/sweats/burning with urination or other symptoms please seek medical reevaluation If you develop any new or worsening symptoms including fever, chills, sweats, chest pain, chest pressure, difficulty breathing, uncontrolled nausea/vomiting, rash, wheezing, passing out or nearly passing out, bleeding, black/bloody bowel movements, or other new or concerning symptoms please call your primary care physician, or call 911 for re-evaluation in the emergency department if you are very concerned. Total Time Total Time Spent Total Time Spent (In Minutes): Time spend day of discharge 35 minutes including direct patient care, documenta tion, review of labs and images, and coordination of care. 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
[2025-03-01 11:31] VITALS: BP 136/77
--- NOTE | 2025-03-01 12:55 | Communication Note ---
Date of Service: March 01, 2025 By CMS guidelines, a determination that the admission or continued stay is not medically necessary has been made by a member of the UR committee and a phys ician for this hospital stay, therefore a Code 44 will be completed and the Inpatient admission will be changed to outpatient.
[2025-03-01] MEDS ORDERED: cefTRIAXone SODIUM 2,000 MG/50 ML BAG IV SCH (14:00)
[2025-03-01] MEDS: CEFDINIR 300 MG CAP PO STA (14:25)
[2025-03-01 15:02] VITALS: PULSE 52
[2025-03-01] MEDS ORDERED: FINASTERIDE 5 MG TAB PO SCH (21:00)
[2025-03-01] MEDS ORDERED: GABAPENTIN 300 MG CAP PO SCH (21:00)
[2025-03-01] MEDS ORDERED: allopurinoL 100 MG TAB PO SCH (21:00)
== END 2025-03-01 15:09 | disposition home health service (06) | DRG 641 ==
LOC: ED 15:29 → SUATTDRO 23:08 → 2N 23:08 → INTOOBSV 23:08 → 2N 03-01 00:26